=== PATIENT | female | born 1935 | race Caucasian/White ===

== ENCOUNTER 2022-02-13 18:16 | Inpatient (IN) | payer MEDICARE, SELFPAY ==
[2022-02-13] VITALS (7 sets, daily range): BP systolic 83–132; BP diastolic 57–91; PULSE 73–80; RESP 16–24; TEMP 36.2–37.2; O2SAT 90–95
--- NOTE | 2022-02-13 18:43 | CTR_ITS ---
PROCEDURE INFORMATION: Exam: CT Abdomen And Pelvis Without Contrast Exam date and time: 02/13/2022 7:59 PM Age: 86 years old Clinical indication: Abdominal pain; Prior surgery; Surgery date: 6+ months; Surgery type: Prolapse of vagina, uterus, colon, colectomy; Additional info: Abd pain TECHNIQUE: Imaging protocol: Computed tomography of the abdomen and pelvis without contrast. Sagittal and coronal reformatted images were created and reviewed. Radiation optimization: All CT scans at this facility use at least one of these dose optimization techniques: automated exposure control; mA and/or kV adjustment per patient size (includes targeted exams where dose is matched to clinical indication); or iterative reconstruction. COMPARISON: 1. CR Pelvis AP 1 or 2 views* [id number] 04/26/2016 3:[address] Abdomen/Pelvis wo I 12/26/2010 7:58 PM RADIATION DOSE METRICS: Total DLP (mGy-cm): 785.13 FINDINGS: Limitations: Evaluation of solid organs and vasculature is limited without intravenous contrast. 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 Pleural spaces: No pleural effusion. Heart: Visualized portions of the heart are mildly enlarged. Mild atherosclerotic calcification in the visualized coronary arteries. Liver: The liver is unremarkable. Gallbladder and bile ducts: The gallbladder is unremarkable. No biliary ductal dilatation. Pancreas: Mild atrophy of the pancreatic parenchyma. No pancreatic ductal dilatation. Spleen: The spleen is unremarkable. Adrenal glands: The right adrenal gland is unremarkable. Indeterminate focus in the left adrenal gland. Hounsfield units show density greater than expected for an adenoma. This measures 1.6 x 1.6 cm (series 3, image 24). Findings are stable compared with 12/26/2010. Kidneys and ureters: Simple cyst in the right kidney measuring 2.1 cm (series 3, image 32). The left kidney is unremarkable. The right and left ureters are unremarkable. Stomach and bowel: Numerous diverticula in the sigmoid colon. No evidence for diverticulitis. There is moderate wall thickening with surrounding inflammatory change of the mid transverse colon through the descending colon. No pneumatosis. No acute abnormality in the small bowel. The stomach is collapsed, which can limit evaluation. No focal abnormality in the stomach otherwise. Appendix: The appendix is visualized and is unremarkable. No findings to suggest acute appendicitis. Intraperitoneal space: No free intraperitoneal air. No ascites. No loculated fluid collections to suggest an abscess. Vasculature: Moderate atherosclerotic changes in the visualized arteries. No evidence for aortic aneurysm. Lymph nodes: No lymphadenopathy. Urinary bladder: Small cystocele at the bladder base (series 6, image 45). Reproductive: Patient has had a previous hysterectomy. The right and left ovaries are unremarkable. Bones/joints: Moderate degenerative changes at both the right and left hips. Mild degenerative changes of the right and left sacroiliac joints. Multilevel degenerative changes of varying severity in the visualized spine. Mild spinal canal stenosis at T11-12. Moderate spinal canal stenosis at L1-L2, L2-L3, L4-L5, and L5-S1. Significant spinal canal stenosis at L3-L4. Multilevel foraminal stenosis of varying severity in the visualized spine. Straightening of the lumbar spine. This may be due to positioning versus muscle spasm. Soft tissues: Ventral midline hernia over the lower abdomen containing a portion of the bladder. No evidence for strangulation (series 6, image 44). Ventral midline fat containing hernia over the lower abdomen. No evidence for strangulation (series 6, image 37). No acute abnormality in the extrathoracic soft tissues. CT/CT abdomen pelvis wo con [id number] IMPRESSION: 1. Findings consistent with moderate colitis in the mid transverse colon through the descending colon. 2. Stable indeterminate focus in the left adrenal gland. 3. Small cystocele at the bladder base. 4. Ventral midline hernia over the lower abdomen containing a portion of the bladder. No evidence for strangulation. 5. Ventral midline fat containing hernia over the lower abdomen. No evidence for strangulation. 6. Sigmoid diverticulosis. No evidence for diverticulitis. 7. Incidental/nonacute findings are listed in the report. COMMENTS: Consistent with the [place]'s Incidental Findings Committee white paper (J Am Froilan Radiol 2018): Any incidental renal lesion less than 1 cm or classified as too small to characterize, or any incidental cystic renal lesion characterized as simple-appearing, is likely benign. No follow-up imaging is recommended for these lesions per consensus recommendations based on imaging criteria.
--- NOTE | 2022-02-13 18:44 | ED_ITS ---
HPI - Abdominal Pain General: Chief Complaint: Abdominal Pain Stated Complaint: ABD PAIN Time Seen by Provider: 02/13/22 18:40 Source: patient and EMS Mode of arrival: EMS Limitations: no limitations History of Present Illness: 86-year-old female states that she started having abdominal pain this morning at 830 states that pain was in her left lower quadrant having some vomiting and diarrhea. States has had history of diverticulitis in the past and this feels similar states pain is sharp in nature rates an 8 out of 10 worse with movement improved with rest. States she had a small amount of bright red blood with her diarrhea. She denies any fevers denies any chest pain. Associated Symptoms: Reports vomiting; Denies chills, dysuria and fever(s) Review of Systems Const: Denies: fever(s), chills, body aches or change in appetite Eyes: Denies: blurry vision or eye discomfort ENMT: Denies: throat pain or dental pain Card: Denies: chest pain Resp: Denies: dyspnea GI: Reports: abdominal pain and vomiting : Denies: dysuria Musc: Denies: neck pain or back pain Skin/Breast: Denies: rash Neuro: Denies: headache(s) Psych: Denies: depression Cristofer/Lymph: Denies: easy bruising All/Imm: Denies: urticaria PFSH ED PFSH: Medical History (Updated 02/13/22 @ 18:45 by Mio Johnson MD) Diverticulitis Social History (Updated 02/13/22 @ 18:45 by Mio Johnson MD) Substance/Drug Use: never Physical Exam Const: COMMON NORMALS: no acute distress, patient oriented x3 and healthy appearing HENMT: COMMON NORMALS: normocephalic and atraumatic HEAD & SCALP: normocephalic and atraumatic Eye: COMMON NORMALS: Equal, round and reactive pupils present and EOMs intact bilaterally PUPIL: Yes Equal, round and reactive pupils present Neck/C-Spine: COMMON NORMALS: full ROM and supple Chest: COMMONS NORMALS: normal inspection of the chest and normal palpation of entire chest wall Resp: COMMON NORMALS: normal respiratory effort, No retractions, No use of accessory muscles and clear to auscultation bilaterally AUSCULTATION: clear to auscultation bilaterally Cardio: COMMON NORMALS: regular rate, regular rhythm and No murmurs present (Cardio) RATE: regular rate RHYTHM: regular rhythm GI: COMMON NORMALS: Normal to inspection, nondistended, normoactive bowel sounds present, Soft to palpation and no masses PALPATION: Yes Soft to palpation and Yes Tenderness to palpation present (GI) Details: LLQ Extremity: COMMON NORMALS: normal to inspection and full ROM Neuro: COMMON NORMALS: patient oriented x3, moves all extremities and no focal motor deficits Psych: COMMON NORMALS: mental status grossly normal, Normal thought process present and cooperative THOUGHT PROCESS: Normal thought process present Skin: COMMON NORMALS: no rashes or lesions noted and no wounds GENERAL SKIN EXAM: no rashes or lesions noted Course Vital Signs: Vital signs: Vital Signs Temperature 99.0 F 02/13/22 18:40 Pulse Rate 80 02/13/22 21:00 Respiratory Rate 22 H 02/13/22 20:19 Blood Pressure 83/71 02/13/22 21:00 Pulse Oximetry 90 02/13/22 21:00 Oxygen Delivery Me thod 02/13/22 19:42 MDM - Abdominal Pain Medical Decision Making Patient presents with abdominal pain she does have a leukocytosis as well with vomiting she does not believe she will tolerate p.o. antibiotics at home we will send off stool cultures along with C. difficile spoke to hospitalist will admit this time for IV antibiotics and pain control. Lab Data : 02/13/22 20:15 02/13/22 20:15 Labs/Radiology: Radiology Impressions Abdomen/Pelvis CT 02/13/22 18:43 IMPRESSION: 1. Findings consistent with moderate colitis in the mid transverse colon through the descending colon. 2. Stable indeterminate focus in the left adrenal gland. 3. Small cystocele at the bladder base. 4. Ventral midline hernia over the lower abdomen containing a portion of the bladder. No evidence for strangulation. 5. Ventral midline fat containing hernia over the lower abdomen. No evidence for strangulation. 6. Sigmoid diverticulosis. No evidence for diverticulitis. 7. Incidental/nonacute findings are listed in the report. COMMENTS: Consistent with the [employer] [employer]'s Incidental Findings Committee white paper (J Am Froilan Radiol 2018): Any incidental renal lesion less than 1 cm or classified as too small to characterize, or any incidental cystic renal lesion characterized as simple-appearing, is likely benign. No follow-up imaging is recommended for these lesions per consensus recommendations based on imaging criteria. Laboratory Results WBC 17.6 10^3/uL (4.0-10.0) H 02/13/22 20:15 RBC 4.56 10^6/uL (4.1-5.3) 02/13/22 20:15 Hgb 14.8 g/dL (11.5-15.3) 02/13/22 20:15 Hct 45.7 % (37.0-47.0) 02/13/22 20:15 MCV 100.2 fl (81-99) H 02/13/22 20:15 MCH 32.5 pg (28.0-34.0) 02/13/22 20:15 MCHC 32.4 g/dL (30.0-36.0) 02/13/22 20:15 RDW 13.2 % (12.1-15.1) 02/13/22 20:15 Plt Count 127 10^3/cmm (130-400) L 02/13/22 20:15 MPV 11.5 fL (7.4-10.4) H 02/13/22 20:15 Neut % (Auto) 83.8 % 02/13/22 20:15 Lymph % (Auto) 8.2 % 02/13/22 20:15 [place] % (Auto) 7.4 % 02/13/22 20:15 Eos % (Auto) 0.1 % 02/13/22 20:15 Baso % (Auto) 0.2 % 02/13/22 20:15 Neut # (Auto) 14.75 10^3/uL (1.8-7.7) H 02/13/22 20:15 Lymph # (Auto) 1.5 10^3/uL (0.8-4.8) 02/13/22 20:15 [place] # (Auto) 1.3 10^3/uL (0.2-0.9) H 02/13/22 20:15 Eos # (Auto) 0.0 10^3/uL (0.0-0.8) 02/13/22 20:15 Baso # (Auto) 0.0 10^3/uL (0.0-0.1) 02/13/22 20:15 Nucleated RBC % (auto) 0 % 02/13/22 20:15 Nucleated RBCs # 0.0 /100WBC 02/13/22 20:15 Sodium 139 mmol/L (136-145) 02/13/22 20:15 Potassium 4.1 mmol/L (3.5-5.1) 02/13/22 20:15 Chloride 105 mmol/L (98-107) 02/13/22 20:15 Carbon Dioxide 22 mmol/L (22-29) 02/13/22 20:15 Anion Gap 16.1 (5-19) 02/13/22 20:15 BUN 32 mg/dL (8-23) H 02/13/22 20:15 Creatinine 1.5 mg/dL (0.5-0.9) H 02/13/22 20:15 GFR Calculation Not Reportable 02/13/22 20:15 Glucose 120 mg/dL (65-115) H 02/13/22 20:15 Calculated Osmolality 296 mOsm/kg (285-295) H 02/13/22 20:15 Lactate 1.3 mmol/L (0.5-2.2) 02/13/22 20:15 Calcium 9.0 mg/dL (8.5-10.5) 02/13/22 20:15 Total Bilirubin 0.5 mg/dL (0.15-1.2) 02/13/22 20:15 AST 19 U/L (0-32) 02/13/22 20:15 ALT 9 U/L (0-33) 02/13/22 20:15 Alkaline Phosphatase 87 IU/L (35-105) 02/13/22 20:15 Total Protein 6.3 g/dL (6.6-8.7) L 02/13/22 20:15 Albumin 3.3 g/dL (3.5-5.2) L 02/13/22 20:15 Globulin 3.0 g/dL (1.3-4.6) 02/13/22 20:15 Lipase 14 U/L (13-60) 02/13/22 20:15 Urine Color Yellow (Yellow) 02/13/22 20:11 Urine Appearance Clear (CLEAR) 02/13/22 20:11 Urine pH 5 (5-7) 02/13/22 20:11 Ur Specific Mason 1.020 (1.005-1.030) 02/13/22 20:11 Urine Protein 1+ (Negative) H 02/13/22 20:11 Urine Glucose (UA) Norm (Normal) 02/13/22 20:11 Urine Ketones Negative (Negative) 02/13/22 20:11 Urine Blood 2+ (Negative) H 02/13/22 20:11 Urine Nitrate Negative (Negative) 02/13/22 20:11 Urine Bilirubin Neg (Negative) 02/13/22 20:11 Urine Urobilinogen Norm mg/dL (Negative) 02/13/22 20:11 Ur Leukocyte Esterase Negative (Negative) 02/13/22 20:11 Urine RBC 0-4 /hpf (0-2) H 02/13/22 20:11 Urine WBC 0-4 /hpf (0-5) H 02/13/22 20:11 Ur Squamous Epith Cells 5-10 /hpf (0-5) H 02/13/22 20:11 Amorphous Sediment Not Reportable 02/13/22 20:11 Urine Bacteria 2+ /hpf (NONE) H 02/13/22 20:11 Urine Mucus 1+ /hpf 02/13/22 20:11 Coding Level of Care Code ED 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
[2022-02-13] MEDS: morphine 4 mg/mL SDV 1 mL IVP (18:49)
[2022-02-13] MEDS: sodium chloride 0.9% 1,000 ML 999 ML IV (18:50)
[2022-02-13] MEDS: ondansetron 2 mg/ML SDV 2 mL 4 MG IVP (18:50)
[2022-02-13 20:24] LABS: Basophils % 0.2 %; Eosinophils % 0.1 %; Hematocrit 45.7 % (37.0-47.0); Hemoglobin 14.8 g/dL (11.5-15.3); Lymphocytes # 1.5 10^3/uL (0.8-4.8); Lymphocytes % 8.2 %; Mean Corpuscular HGB Conc 32.4 g/dL (30.0-36.0); Mean Corpuscular Hemoglobin 32.5 pg (28.0-34.0); Mean Corpuscular Volume 100.2 fl (81-99); Monocytes # 1.3 10^3/uL (0.2-0.9); Monocytes % 7.4 %; Neutrophils # 14.75 10^3/uL (1.8-7.7); Neutrophils % 83.8 %; Nucleated Red Blood Cells % 0 %; Platelet Count 127 10^3/cmm (130-400); Red Blood Count 4.56 10^6/uL (4.1-5.3); Red Cell Distribution Width 13.2 % (12.1-15.1); White Blood Count 17.6 10^3/uL (4.0-10.0)
[2022-02-13 20:25] LABS: Mean Platelet Volume 11.5 fL (7.4-10.4)
[2022-02-13 20:41] LABS: Lactate (Lactic Acid level) 1.3 mmol/L (0.5-2.2)
[2022-02-13 20:43] LABS: Add Urine Microscopic? YES; Bacteria Urine 2+ /hpf; Bilirubin Urine Neg (Negative); Blood Urine 2+ (Negative); Glucose Urine UA Norm (Normal); Ketones Urine Negative (Negative); Leukocyte Esterase Urine Negative (Negative); Mucus Urine 1+ /hpf; Nitrate Urine Negative (Negative); Protein Urine 1+ (Negative); RBC Urine 0-4 /hpf (0-2); Urine Appearance Clear (CLEAR); Urine Color Yellow (Yellow); Urobilinogen Urine Norm (Negative); WBC Urine 0-4 /hpf (0-5); pH Urine 5 (5-7)
[2022-02-13 20:44] LABS: Add Urine Culture? Yes
[2022-02-13 20:46] LABS: Alanine Aminotransferase 9 U/L (0-33); Albumin Level 3.3 g/dL (3.5-5.2); Alkaline Phosphatase 87 IU/L (35-105); Anion Gap 16.1 (5-19); Aspartate Amino Transferase 19 U/L (0-32); Blood Urea Nitrogen 32 mg/dL (8-23); Carbon Dioxide 22 mmol/L (22-29); Chloride 105 mmol/L (98-107); Glucose 120 mg/dL (65-115); Lipase 14 U/L (13-60); Osmolality Calculated 296 mOsm/kg (285-295); Potassium 4.1 mmol/L (3.5-5.1); Sodium 139 mmol/L (136-145); Total Bilirubin 0.5 mg/dL (0.15-1.2); Total Protein 6.3 g/dL (6.6-8.7)
--- NOTE | 2022-02-13 21:53 | PM.HP ---
Providers/Chief Complaint Chief Complaint: ABD PAIN History of Present Illness Ketty Quijano is a 86 year old female with past medical history of sciatica, hypertension, diverticulitis presented to the hospital today with complaint of nausea and vomiting and diarrhea. She states she started having abdominal pain this morning when she woke up after having her usual cup of coffee and toast in the morning. She developed pain in left lower quadrant and started to have diarrhea. She states she has gone more than 10-12 times throughout the day. She has also seen little flecks of blood but no bright red blood per rectum filling up the toilet bowl. There was no blood in the vomitus either. She says after vomiting a few times she is now having dry heaving. She complains of feeling lightheaded. Denies any chest pain or shortness of breath at this time. Abdomen described as very sore to palpation. Denies any recent antibiotic use. Denies ill contacts. Denies eating out at a restaurant recently. Does drink well water on a regular basis without voiding at. Denies any tick bites, fresh water stream drinking or exposure. She says she has had diverticulitis flares at times in the past and also had a colonoscopy few years ago by Dr. Tovar. Denies fever, chills, dysuria. Otherwise denotes herself as very healthy. Denies drinking alcohol, smoking, or marijuana use. ER course: BP 83/71, respiratory 22, pulse 80, temperature 99, saturating 90% on room air on arrival. Patient has not had a bowel movement since ER visit. Abdomen/Pelvis CT? 02/13/22 18:43 IMPRESSION: 1. Findings consistent with moderate colitis in the mid transverse colon through the descending colon. 2. Stable indeterminate focus in the left adrenal gland. 3. Small cystocele at the bladder base. 4. Ventral midline hernia over the lower abdomen containing a portion of the bladder. No evidence for strangulation. 5. Ventral midline fat containing hernia over the lower abdomen. No evidence for strangulation. 6. Sigmoid diverticulosis. No evidence for diverticulitis. 7. Incidental/nonacute findings are listed in the report. Labs remarkable for WBC 17.6, platelets 127, creatinine 1.5, lactic acid 1.3, urinalysis blood 2+, RBC positive. Home medications?verified by me ? Lisinopril hydrochlorothiazide 20?25, 1 tablet daily ? Lovastatin 20 mg daily - Metoprolol heart rate 100 mg twice daily Medications/Allergies Home Medications Medication Instructions Recorded Confirmed Last Taken Type hydrocodone 10 mg-acetaminophen tab 02/13/22 Unknown History 325 mg tablet lisinopril 20 1 tab PO DAILY 02/13/22 02/13/22 Unknown History mg-hydrochlorothiazide 25 mg tablet lovastatin 20 mg tablet 20 mg PO DAILY 02/13/22 02/13/22 Unknown History metoprolol tartrate 100 mg tablet 100 mg PO BID 02/13/22 02/13/22 Unknown History Allergies Allergy/AdvReac Type Severity Reaction Status Date / Time milk Allergy Unknown Verified 02/14/22 00:29 PFSH Acute PFSH: Medical History (Updated 02/14/22 @ 01:32 by Albina Landa MD) Diverticulitis Social History (Updated 02/13/22 @ 18:45 by Mio Johnson MD) Substance/Drug Use: never Vitals/I&O/Wt Last Vital Signs Temp 99.0 F 02/13/22 18:40 Pulse 80 02/13/22 21:00 Resp 22 H 02/13/22 20:19 BP 83/71 02/13/22 21:00 Pulse Ox 90 02/13/22 21:00 O2 Del Method 02/13/22 19:42 Physical Exam Narrative: General: Alert oriented x3, patient seen laying in bed with son at bedside. Patient appears very comfortable at this time breathing room air saturating 95%. Not tachycardic, regular rate rhythm, blood pressure 100/70. HEENT: Normocephalic, atraumatic, EOMI, breathing normally on room air without acute distress._ Cardio: Regular rate rhythm, normal S1-S2, Respiratory: Clear to auscultation bilaterally with no wheezes and rhonchi GI: Abdomen soft, tender to palpation left lower quadrant area, not distended, bowel sounds slightly hyperactive, no guarding or rigidity Extremities: No lower extremity edema bilaterally, no cyanosis Data : 02/13/22 20:15 02/13/22 20:15 A&P Assessment and plan (1) Colitis: Status: Acute (2) Sepsis: Status: Acute (3) Sepsis associated hypotension: Status: Acute (4) REAGAN (acute kidney injury): Status: Acute (5) Nausea & vomiting: Status: Acute (6) Gastroenteritis: Status: Acute (7) Thrombocytopenia: Status: Acute (8) Hypertension: Status: Acute (9) History of sciatica: Status: Acute Plan #Sepsis secondary to large colon Moderate colitis #Diarrhea with flecks of blood, no gross bright red blood per rectum #Nausea, vomiting #Gastroenteritis #Hypertension #History of diverticulitis?no evidence of acute diverticulitis on CT today. #History of sciatica #REAGAN, creatinine 1.5, baseline unknown #Thrombocytopenia possibly secondary to infection, HUS not ruled out #Transient hypotension on arrival 80/70.?Responsive to fluids #Indeterminate focus in left adrenal gland?stable from prior CT 2010, outpatient follow-up ? Patient already received 1 dose of ciprofloxacin and Flagyl in ER ? Rule out HUS. Check LDH, peripheral smear, Wang test, check CRP ? Continue normal saline 100 cc/h. Patient did get 1 L bolus in ER normal saline ? Continue to monitor hemoglobin. Currently 14.1. ? Check stool culture, bacterial, ova, parasite, C. difficile ? I will hold off on continuing antibiotics due to presence of blood in stool as per patient. Day team to reevaluate and order antibiotics. ? Consider general surgery consult if patient worsens Full code DVT prophylaxis: SCDs Kyle Quijano [phone], son would like to be updated with any changes in management. Attestations Medical Necessity Statement*: Patient will cross greater than 2 midnights for management of sepsis secondary to colitis, REAGAN, gastroenteritis. Coding Level of Care Code Acute Timekeeper Supervisor for [facility] Diagnoses Colitis K52.9 Sepsis A41.9 Sepsis associated hypotension A41.9; I95.9 REAGAN (acute kidney injury) N17.9 Nausea & vomiting R11.2 Gastroenteritis K52.9 Thrombocytopenia D69.6 Hypertension I10 History of sciatica Z86.69
[2022-02-13] MEDS: metroNIDAZOLE IV 500 MG/100 ML PREMIX 100 MG IV (22:25)
[2022-02-13] MEDS: ciprofloxacin 400 MG/200 ML PREMIX 200 MG IV (23:19)
[2022-02-14 00:14] LABS: LAB Peripheral Smear Sent for Review
[2022-02-14 00:21] LABS: Procalcitonin 0.15 ng/mL (0-0.5); Thyroid Stimulating Hormone 1.85 uIU/mL (0.27-4.20)
[2022-02-14] MEDS: famotidine 20 mg/2 mL INJ IVP ×2 (00:28→11:18)
[2022-02-14] MEDS: sodium chlor 0.9% + KCl 20 mEq 20 MEQ/1,000 ML BAG 100 MEQ IV (00:28)
[2022-02-14 00:31] LABS: C Reactive Protein 10.1 mg/L (0.0-4.9); Lactate Dehydrogenase 248 U/L (135-214)
[2022-02-14 06:28] LABS: Basophils % 0.3 %; Eosinophils % 0.1 %; Hematocrit 43.2 % (37.0-47.0); Hemoglobin 13.8 g/dL (11.5-15.3); Lymphocytes # 2.1 10^3/uL (0.8-4.8); Lymphocytes % 13.2 %; Mean Corpuscular HGB Conc 31.9 g/dL (30.0-36.0); Mean Corpuscular Hemoglobin 32.3 pg (28.0-34.0); Mean Corpuscular Volume 101.2 fl (81-99); Mean Platelet Volume 11.9 fL (7.4-10.4); Monocytes # 1.4 10^3/uL (0.2-0.9); Monocytes % 8.7 %; Neutrophils # 12.06 10^3/uL (1.8-7.7); Neutrophils % 77.4 %; Nucleated Red Blood Cells % 0 %; Platelet Count 127 10^3/cmm (130-400); Red Blood Count 4.27 10^6/uL (4.1-5.3); Red Cell Distribution Width 13.3 % (12.1-15.1); White Blood Count 15.6 10^3/uL (4.0-10.0)
[2022-02-14 06:50] LABS: Lactic Sepsis W/Reflex 1.3 mmol/L (0.5-2.2)
[2022-02-14 07:09] LABS: Alanine Aminotransferase 8 U/L (0-33); Albumin Level 2.8 g/dL (3.5-5.2); Alkaline Phosphatase 72 IU/L (35-105); Anion Gap 15.1 (5-19); Aspartate Amino Transferase 15 U/L (0-32); Blood Urea Nitrogen 28 mg/dL (8-23); Calcium 8.6 mg/dL (8.5-10.5); Carbon Dioxide 23 mmol/L (22-29); Chloride 105 mmol/L (98-107); Globulin 2.9 g/dL (1.3-4.6); Glucose 116 mg/dL (65-115); Magnesium 1.4 mg/dL (1.7-2.3); Osmolality Calculated 294 mOsm/kg (285-295); Phosphorus 1.7 mg/dL (2.5-4.5); Potassium 4.1 mmol/L (3.5-5.1); Sodium 139 mmol/L (136-145); Total Bilirubin 0.6 mg/dL (0.15-1.2); Total Protein 5.7 g/dL (6.6-8.7)
[2022-02-14] MEDS: sodium chloride 0.9% 1,000 ML 999 ML IV (09:06)
[2022-02-14] MEDS: piperacillin-tazobactam 3.375 GM in sodium chloride 0.9% (plus) 50 ML IV ×2 (10:17→16:46)
[2022-02-14] MEDS: acetaminophen 325 mg Tablet 650 MG PO (10:17)
[2022-02-14 10:21] VITALS: BMI 39.6
--- NOTE | 2022-02-14 10:22 | PC.CHAP ---
Pastoral Care Encounter/Spiritual Assessment Type of Contact [] Declined physician non invasive cardiologist visit [] Patient/Family/Request visit [] Outpatient visit [] Follow-up visit [] Physician referral [] Code/Alert [x] Routine visit [] Staff referral [] Actively dying [] Patient sleeping [] Family support [] [x] Out of room [] Palliative care [] [] Receiving care in room [] Pre-surgical visit [] Trauma [] Long length of stay [] ICU visit [] Other: Relational/Emotional Strength [] Patient feels connected with others/family/visitors/staff [] Distress [] Loneliness/isolation [] Abandonment Spirituality of Patient [] Person of Gin [] Attends Zoroastrianism of their Gin [] Believes in Prayer [] Reads Bible or Temple materials [] There are Spiritual issues to be addressed Patient Registration Specialist Interventions [] Prayer [] Active listening [] Non-anxious presence [] Spiritual/emotional support [] Crisis/trauma care [] Spiritual counseling [] Bereavement support [] Provided bereavement packet [] Provided Bible/devotional materials [] Provided toy/stuffed animal, coloring book to patient or family member [] Provided Communion [] Anointing/[place] [] Salvation [] Completed spiritual assessment [] Other: Impact on Illness or Injury [] Angry [] Fearful [] Anxious [] Often cries [] Exhaustion [] Unable to work [] Unable to attend gnosticism [] Unable to walk/stand [] Unable to read [] Unable to drive [] Unable to eat/drink [] Unable to sleep [] Unable to be with family [] Patient intubated [] Other: Summary Time spent with patient
[2022-02-14 10:23] VITALS: BP 92/58; PULSE 76; RESP 15; O2SAT 97
--- NOTE | 2022-02-14 10:56 | PM.PN ---
Subjective Subjective: This morning patient is stating that her cramps are better, I will let her have clear liquid diet She most likely has diverticular bleed Start antibiotics I will give her another bolus Patient stating that she is active for age, [place] Vitals/I&O/Wt Last Vital Signs Temp 97.2 F L 02/13/22 22:00 Pulse 76 02/14/22 10:23 Resp 15 02/14/22 10:23 BP 92/58 02/14/22 10:23 Pulse Ox 97 02/14/22 10:23 O2 Del Method 02/14/22 10:23 02/13/22 02/14/22 02/14/22 22:59 06:59 14:59 Intake Total 1000 / 1000 300 / 1300 880 / 880 Balance 1000 / 1000 300 / 1300 880 / 880 Weight last 48 hrs Weight 95.164 kg Physical Exam Narrative: Patient is awake and alert Looks euvolemic Abdomen tender to palpate left lower quadrant otherwise soft, no signs of rigidity guarding, Awake and alert Nonfocal neuro exam Saturating well Bowel sound present Very pleasant cooperative Data : 02/14/22 06:21 02/14/22 06:21 Micro: Microbiology 02/13/22 22:02 Blood Culture - Preliminary Blood SPECIMEN COLLECTED 02/13/22 22:12 Blood Culture - Preliminary Blood SPECIMEN COLLECTED A&P Assessment and plan (1) Thrombocytopenia: Status: Acute (2) Gastroenteritis: Status: Acute (3) Nausea & vomiting: Status: Acute (4) Acute kidney injury superimposed on chronic kidney disease: Status: Acute (5) Sepsis: Status: Acute (6) Sepsis associated hypotension: Status: Acute (7) Colitis: Status: Acute (8) Diverticulitis: Status: Acute (9) Diverticular hemorrhage: Status: Acute Plan Sepsis related to diverticulitis/colitis No significant drop in hemoglobin my suspicion for HUS, TTP is low I will go ahead and keep her on Zosyn We will start her on clear liquid diet Most likely she has diverticular bleed that is causing hematochezia Lactic acid is normal, leukocytosis trending down my suspicion for ischemic colitis at this point is low She has localized tenderness in the left lower quadrant No signs of autoimmune hemolytic anemia or thrombocytopenia platelets are stable Secondary to abnormal creatinine at [address] abdomen pelvis to rule out ischemic colitis at this point however she does have involvement of watershed area EKG showing sinus arrhythmia Hematochezia: Hemoglobin stable, blood pressure is soft related to dehydration and sepsis Acute on chronic kidney disease Baseline creatinine seems to between 1.3-1.5 Currently creatinine at 1.5 Anticipate improvement with IV fluid hydration She was also taking lisinopril hydrochlorothiazide at home Hypotension related to sepsis and dehydration We will give her another bolus of fluids Follow-up with stool studies Serial abdominal exam, if she stays stable I might be able to discharge her in next 48 hours, she will need outpatient colonoscopy Start her on clear liquid diet DVT prophylaxis on hold secondary to thrombocytopenia and hematochezia Patient is full code Kyle Quijano [phone] and son would like to be updated with any management change Attestations Medical Necessity Statement*: Continue medical management Time Spent in Patient Care: 40 Coding Level of Care Code Acute Appetizer Packer for [facility] Fwd Diagnoses Thrombocytopenia D69.6 Gastroenteritis K52.9 Nausea & vomiting R11.2 Acute kidney injury superimposed on chronic kidney disease N17.9; N18.9 Sepsis A41.9 Sepsis associated hypotension A41.9; I95.9 Colitis K52.9 Diverticulitis K57.92 Diverticular hemorrhage K57.31
[2022-02-14] MEDS: lactated ringers 1,000 ML 999 ML IV (11:19)
[2022-02-14 12:00] VITALS: BP 82/51; PULSE 63; RESP 18; TEMP 36.9; O2SAT 93
[2022-02-14] MEDS: sodium chloride 0.9% 1,000 ML 75 ML IV (12:33)
--- NOTE | 2022-02-14 13:41 | PC.NURSE ---
iv came out of patient's arm
[2022-02-14 14:25] VITALS: BP 102/70; PULSE 69; RESP 12; TEMP 36.4; O2SAT 92
[2022-02-14 15:39] VITALS: BP 91/54; PULSE 72; RESP 16; TEMP 36.8; O2SAT 90
[2022-02-14 20:00] VITALS: BP 118/48; PULSE 79; RESP 14; TEMP 36.8; O2SAT 95
[2022-02-15] VITALS: BP 101/67; PULSE 75; RESP 16; TEMP 36.7; O2SAT 96
[2022-02-15] MEDS: piperacillin-tazobactam 3.375 GM in sodium chloride 0.9% (plus) 50 ML IV ×2 (00:34→08:20)
[2022-02-15] MEDS: famotidine 20 mg/2 mL INJ IVP (00:35)
[2022-02-15] MEDS: sodium chloride 0.9% 1,000 ML 75 ML IV (00:35)
[2022-02-15 02:51] LABS: Basophils # 0.1 10^3/uL (0.0-0.1); Basophils % 0.4 %; Eosinophils # 0.3 10^3/uL (0.0-0.8); Eosinophils % 2.8 %; Hematocrit 40.2 % (37.0-47.0); Hemoglobin 12.7 g/dL (11.5-15.3); Lymphocytes # 1.6 10^3/uL (0.8-4.8); Mean Corpuscular HGB Conc 31.6 g/dL (30.0-36.0); Mean Corpuscular Hemoglobin 32.1 pg (28.0-34.0); Mean Corpuscular Volume 101.5 fl (81-99); Mean Platelet Volume 12.3 fL (7.4-10.4); Monocytes # 0.8 10^3/uL (0.2-0.9); Neutrophils # 8.57 10^3/uL (1.8-7.7); Neutrophils % 75.5 %; Nucleated Red Blood Cells % 0 %; Platelet Count 118 10^3/cmm (130-400); Red Blood Count 3.96 10^6/uL (4.1-5.3); Red Cell Distribution Width 13.6 % (12.1-15.1); White Blood Count 11.4 10^3/uL (4.0-10.0)
[2022-02-15 03:17] LABS: Blood Urea Nitrogen 22 mg/dL (8-23); Calcium 8.4 mg/dL (8.5-10.5); Carbon Dioxide 22 mmol/L (22-29); Chloride 111 mmol/L (98-107); Glucose 93 mg/dL (65-115); Osmolality Calculated 297 mOsm/kg (285-295); Sodium 142 mmol/L (136-145)
[2022-02-15 04:00] VITALS: BP 87/55; PULSE 78; RESP 13; TEMP 36.6; O2SAT 96
[2022-02-15 06:25] VITALS: BP 133/61
[2022-02-15 08:00] VITALS: BP 103/71; PULSE 66; RESP 16; TEMP 36.5; O2SAT 95
--- NOTE | 2022-02-15 09:23 | PC.NURSE ---
Bedside report received from CATHERINE Zeng.
[2022-02-15 12:00] VITALS: BP 108/72; PULSE 87; RESP 18; TEMP 36.6; O2SAT 96
--- NOTE | 2022-02-15 12:54 | P.DS_ITS ---
Discharge Providers Date of Admission: 02/13/22 21:52 Date of Discharge: February 15, 2022 Attending Provider at Admission: Albina Landa MD Attending Provider at Discharge: Avani Tabor MD Diagnoses at Discharge Discharge Diagnosis (1) Thrombocytopenia: Status: Acute (2) Gastroenteritis: Status: Acute (3) Nausea & vomiting: Status: Acute (4) Acute kidney injury superimposed on chronic kidney disease: Status: Acute (5) Sepsis: Status: Acute (6) Sepsis associated hypotension: Status: Acute (7) Colitis: Status: Acute (8) Diverticulitis: Status: Acute (9) Diverticular hemorrhage: Status: Acute Reason for Visit Reason for Visit: ABD PAIN Hospital Course Hospital Course 86-year-old female who presented to the hospital with chief complaint of bright blood per rectum with diarrhea. Patient has history of diverticulosis. She is endorsing constipation. Initially there was concern for ischemic colitis and possible autoimmune hemolysis. Work-up was unremarkable. Platelets remained stable. Hemoglobin stable as well. Diverticular bleed improved. Her colitis was treated with IV antibiotics. Her leukocytosis was improving, she remained afebrile. She tolerated her GI soft diet on 02/15. Patient is wanting to go home. Cultures remain negative, C. difficile ruled out. I will give her 10 days of Augmentin. Have discontinued her lisinopril hydrochlorothiazide c ombination because of chronic kidney disease. Her blood pressure has remained stable, she can continue metoprolol. Platelet count at the time of discharge 118,000, hemoglobin 12.7, white count 11.4, afebrile cultures negative to date She will need a colonoscopy down the road once inflammation subsides. I will have her follow-up with her PCP to decide about her colonoscopy timing Physical Exam Narrative: Hemodynamically stable Elderly female Tolerated her diet Abdomen is distillation operator to touch in left lower quadrant on deep palpation Euvolemic Awake and alert Pleasant cooperative Saturating well on room air Discharge Data Studies Completed and Pending Completed Studies During Hospitalization Category Date Time Status CT abdomen pelvis wo con [id number] Urgent Cat Scan 02/13/22 18:43 Completed Pending at discharge Category Date Time Status Blood Culture Stat Lab 02/13/22 22:02 Results Clostridioides Difficile PCR Routine Lab 02/13/22 21:27 Uncollected Occult Blood Stool [Immunochemical Fecal OCB] Routine Lab 02/14/22 01:22 Uncollected Stool Culture, Bacterial [Enteric Bacterial Panel by Lab 02/13/22 21:27 Uncollected PCR] Routine stool Ova and Parasite [Enteric Parasite Panel by PCR] Lab 02/13/22 23:43 Uncollected Routine Radiology Impressions Abdomen/Pelvis CT 02/13/22 18:43 IMPRESSION: 1. Findings consistent with moderate colitis in the mid transverse colon through the descending colon. 2. Stable indeterminate focus in the left adrenal gland. 3. Small cystocele at the bladder base. 4. Ventral midline hernia over the lower abdomen containing a portion of the bladder. No evidence for strangulation. 5. Ventral midline fat containing hernia over the lower abdomen. No evidence for strangulation. 6. Sigmoid diverticulosis. No evidence for diverticulitis. 7. Incidental/nonacute findings are listed in the report. COMMENTS: Consistent with the [employer]'s Incidental Findings Committee white paper (J Am Froilan Radiol 2018): Any incidental renal lesion less than 1 cm or classified as too small to characterize, or any incidental cystic renal lesion characterized as simple-appearing, is likely benign. No follow-up imaging is recommended for these lesions per consensus recommendations based on imaging criteria. Laboratory Results WBC 11.4 10^3/uL (4.0-10.0) H 02/15/22 02:22 RBC 3.96 10^6/uL (4.1-5.3) L 02/15/22 02:22 Hgb 12.7 g/dL (11.5-15.3) 02/15/22 02:22 Hct 40.2 % (37.0-47.0) 02/15/22 02:22 MCV 101.5 fl (81-99) H 02/15/22 02:22 MCH 32.1 pg (28.0-34.0) 02/15/22 02:22 MCHC 31.6 g/dL (30.0-36.0) 02/15/22 02:22 RDW 13.6 % (12.1-15.1) 02/15/22 02:22 Plt Count 118 10^3/cmm (130-400) L 02/15/22 02:22 MPV 12.3 fL (7.4-10.4) H 02/15/22 02:22 Neut % (Auto) 75.5 % 02/15/22 02:22 Lymph % (Auto) 14.0 % 02/15/22 02:22 [place] % (Auto) 7.0 % 02/15/22 02:22 Eos % (Auto) 2.8 % 02/15/22 02:22 Baso % (Auto) 0.4 % 02/15/22 02:22 Neut # (Auto) 8.57 10^3/uL (1.8-7.7) H 02/15/22 02:22 Lymph # (Auto) 1.6 10^3/uL (0.8-4.8) 02/15/22 02:22 [place] # (Auto) 0.8 10^3/uL (0.2-0.9) 02/15/22 02:22 Eos # (Auto) 0.3 10^3/uL (0.0-0.8) 02/15/22 02:22 Baso # (Auto) 0.1 10^3/uL (0.0-0.1) 02/15/22 02:22 Nucleated RBC % (auto) 0 % 02/15/22 02:22 Nucleated RBCs # 0.0 /100WBC 02/15/22 02:22 Haptoglobin 134.0 mg/L (30-200) 02/13/22 20:15 Sodium 142 mmol/L (136-145) 02/15/22 02:22 Potassium 4.0 mmol/L (3.5-5.1) 02/15/22 02:22 Chloride 111 mmol/L (98-107) H 02/15/22 02:22 Carbon Dioxide 22 mmol/L (22-29) 02/15/22 02:22 Anion Gap 13.0 (5-19) 02/15/22 02:22 BUN 22 mg/dL (8-23) 02/15/22 02:22 Creatinine 1.4 mg/dL (0.5-0.9) H 02/15/22 02:22 GFR Calculation Not Reportable 02/15/22 02:22 Glucose 93 mg/dL (65-115) 02/15/22 02:22 Calculated Osmolality 297 mOsm/kg (285-295) H 02/15/22 02:22 Lactic Acid 1.3 mmol/L (0.5-2.2) 02/14/22 06:21 Lactate 1.3 mmol/L (0.5-2.2) 02/13/22 20:15 Calcium 8.4 mg/dL (8.5-10.5) L 02/15/22 02:22 Phosphorus 1.7 mg/dL (2.5-4.5) L 02/14/22 06:21 Magnesium 1.4 mg/dL (1.7-2.3) L 02/14/22 06:21 Total Bilirubin 0.6 mg/dL (0.15-1.2) 02/14/22 06:21 AST 15 U/L (0-32) 02/14/22 06:21 ALT 8 U/L (0-33) 02/14/22 06:21 Alkaline Phosphatase 72 IU/L (35-105) 02/14/22 06:21 Lactate Dehydrogenase 248 U/L (135-214) H 02/13/22 20:15 C-Reactive Protein 10.1 mg/L (0.0-4.9) H 02/13/22 20:15 Total Protein 5.7 g/dL (6.6-8.7) L 02/14/22 06:21 Albumin 2.8 g/dL (3.5-5.2) L 02/14/22 06:21 Globulin 2.9 g/dL (1.3-4.6) 02/14/22 06:21 Lipase 14 U/L (13-60) 02/13/22 20:15 Procalcitonin 0.15 ng/mL (0-0.5) 02/13/22 20:15 TSH 1.85 uIU/mL (0.27-4.20) 02/13/22 20:15 TSH Cancelled 02/13/22 20:15 Urine Color Yellow (Yellow) 02/13/22 20:11 Urine Appearance Clear (CLEAR) 02/13/22 20:11 Urine pH 5 (5-7) 02/13/22 20:11 Ur Specific [place] 1.020 (1.005-1.030) 02/13/22 20:11 Urine Protein 1+ (Negative) H 02/13/22 20:11 Urine Glucose (UA) Norm (Normal) 02/13/22 20:11 Urine Ketones Negative (Negative) 02/13/22 20:11 Urine Blood 2+ (Negative) H 02/13/22 20:11 Urine Nitrate Negative (Negative) 02/13/22 20:11 Urine Bilirubin Neg (Negative) 02/13/22 20:11 Urine Urobilinogen Norm mg/dL (Negative) 02/13/22 20:11 Ur Leukocyte Esterase Negative (Negative) 02/13/22 20:11 Urine RBC 0-4 /hpf (0-2) H 02/13/22 20:11 Urine WBC 0-4 /hpf (0-5) H 02/13/22 20:11 Ur Squamous Epith Cells 5-10 /hpf (0-5) H 02/13/22 20:11 Amorphous Sediment Not Reportable 02/13/22 20:11 Urine Bacteria 2+ /hpf (NONE) H 02/13/22 20:11 Urine Mucus 1+ /hpf 02/13/22 20:11 [place], Poly Interpret Negative 02/13/22 20:15 Vitals Last Vital Signs Temp 97.8 F 02/15/22 12:00 Pulse 87 02/15/22 12:00 Resp 18 02/15/22 12:00 BP 108/72 02/15/22 12:00 Pulse Ox 96 02/15/22 12:00 O2 Del Method 02/15/22 12:00 Discharge Plan Discharge Patient Disposition: Home Condition: Stable Prescriptions: New amoxicillin-pot clavulanate [Augmentin] 500-125 mg tablet 1 tab PO BID 10 Days Qty: 20 0RF sennosides-docusate sodium [Senna-S] 8.6-50 mg tablet 1 tab-cap PO DAILY Qty: 30 0RF Continued hydrocodone-acetaminophen 10-325 mg tablet 1 tab PO Q6H PRN (Reason: Pain) metoprolol tartrate 100 mg tablet 100 mg PO BID lovastatin 20 mg tablet 20 mg PO BEDTIME Discontinued lisinopril-hydrochlorothiazide 20-25 mg tablet 1 tab PO QA Discharge Orders: Discharge Order (Routine); Ordered 02/15/22 Ordered By: Avani Tabor Discharge Diet: GI Soft Discharge Activity: Increase activity as tolerated Patient Instructions: Opioid Safety Activity Restrictions/Additional Instructions: Please do not take lisinopril and hydrochlorothiazide because your blood pressure has remained stable and you have chronic kidney disease creatinine is around 1.4 You can keep taking your metoprolol for blood pressure. Please take Augmentin for 10 days. You likely suffered from diverticular bleed and you might notice on and off bright bleed per rectum. Please take stool softeners to avoid constipation Discharge Attestations Time Spent in Discharge Care*: less than 30 min Quality Metrics Clinical Quality Measures [ No reported AMI, CVA or VTE this stay] Coding Level of Care Code Acute Chg FW DC note Diagnoses Thrombocytopenia D69.6 Gastroenteritis K52.9 Nausea & vomiting R11.2 Acute kidney injury superimposed on chronic kidney disease N17.9; N18.9 Sepsis A41.9 Sepsis associated hypotension A41.9; I95.9 Colitis K52.9 Diverticulitis K57.92 Diverticular hemorrhage K57.31
== END 2022-02-15 15:28 | disposition home or self-care (01) | DRG 871 ==
LOC: ER 20:46 → ER IP 23:42 → MEDSURG 02-14 09:02
PROVIDERS: Admitting Provider Internal Medicine; Emergency Provider Emergency Medicine; Visit Provider Internal Medicine
DX: A41.9 Sepsis, unspecified organism (principal); K57.33 Diverticulitis of large intestine without perforation or abscess with bleeding; N17.9 Acute kidney failure, unspecified; K52.9 Noninfective gastroenteritis and colitis, unspecified; M54.30 Sciatica, unspecified side; I12.9 Hypertensive chronic kidney disease with stage 1 through stage 4 chronic kidney disease, or unspecified chronic kidney disease; N18.9 Chronic kidney disease, unspecified; I95.9 Hypotension, unspecified; D69.6 Thrombocytopenia, unspecified; Z79.891 Long term (current) use of opiate analgesic
CPT/HCPCS: 36415; 74176; 80048; 80053; 80503; 81001; 83010; 83605; 83615; 83690; 83735; 84100; 84145; 84443; 85025; 86140; 86880; 87040; 87086; 96365; 96366; 96367; 96375; 99285; J0744; J2270; J2405; J2543; J3490; J7030; S0030

== ENCOUNTER 2022-03-08 16:41 | Inpatient (IN) | payer MEDICARE, SELFPAY ==
[2022-03-08 16:50] VITALS: BP 145/66; PULSE 72; RESP 16; TEMP 36.4; O2SAT 94; BMI 31.1
--- NOTE | 2022-03-08 18:49 | CTR_ITS ---
PROCEDURE INFORMATION: Exam: CT Abdomen And Pelvis Without Contrast Exam date and time: 03/08/2022 7:10 PM Age: 86 years old Clinical indication: Pain and condition or disease; Intestinal condition; Diverticulitis; Abdominal pain; Additional info: Abd pain TECHNIQUE: Imaging protocol: Computed tomography of the abdomen and pelvis without contrast. Radiation optimization: All CT scans at this facility use at least one of these dose optimization techniques: automated exposure control; mA and/or kV adjustment per patient size (includes targeted exams where dose is matched to clinical indication); or iterative reconstruction. COMPARISON: CT abdomen pelvis wo con [id number] 02/13/2022 7:59 PM RADIATION DOSE METRICS: Total DLP (mGy-cm): 765.67 FINDINGS: Lungs: The visualized lung m[place] show mild bibasilar atelectasis. Liver: Normal size and homogeneous density. No liver mass is seen. Gallbladder and bile ducts: No calcified gallstones. No ductal dilation. Pancreas: Normal size and homogeneous density. No ductal dilation. Spleen: Normal. No splenomegaly. Adrenal glands: Normal. No mass. Kidneys and ureters: No evidence of hydronephrosis. No renal or ureteral calculi. Stomach and bowel: There are no abnormally dilated loops of small bowel. There has been near complete resolution of the transverse and descending colitis with some mild pericolonic stranding remaining in the proximal descending colon. However, has been interim development of thickening of the wall of the sigmoid that contains diverticula and pericolonic inflammatory stranding consistent with diverticulitis. There is no evidence of perforation. There is a soft tissue density extending 4.9 x 0.8 cm along the lateral aspect of the proximal sigmoid with heterogeneous density that may represent a phlegmon or developing abscess (series 4, image 61). Appendix: No evidence of appendicitis. Intraperitoneal space: There is no free air in the peritoneal cavity. Vasculature: There is extensive atherosclerotic calcification and tortuosity of the abdominal aorta and its branches. No abdominal aortic aneurysm is identified. Lymph nodes: No enlarged retroperitoneal or mesenteric lymph nodes. Urinary bladder: There is redemonstration of a small cystocele (series 4, images 68-73). Reproductive: There has been prior hysterectomy. Bones/joints: There is no acute fracture. There is mild levoconvex rotoscoliosis of the lumbar spine. Multilevel degenerative disc disease and vacuum disc associated with prominent anterior, lateral and posterior osteophytes. Soft tissues: In the mid lower abdomen, there is diastasis recti containing adipose tissue. There is a small fat-containing umbilical hernia. CT/CT abdomen pelvis wo con [id number] IMPRESSION: 1. Significant improvement in the previously described colitis without complete resolution. 2. Interim development of sigmoid diverticulitis with a small phlegmon/developing abscess along the lateral aspect of the proximal sigmoid colon. No free air to suggest perforation. 3. Redemonstration of diastasis recti and a small umbilical hernia. 4. A small cystocele. 5. Additional non emergent findings as described above.
--- NOTE | 2022-03-08 18:55 | W.ED.ABDPA2 ---
HPI - Abdominal Pain General: Chief Complaint: Abdominal Pain Stated Complaint: pain in the stomach really bad Time Seen by Provider: 03/08/22 18:43 Source: patient Mode of arrival: ambulatory Limitations: no limitations History of Present Illness: 86-year-old female who was admitted earlier this month for colitis states she finished her antibiotics roughly 10 days ago states that over the last day she been having increasing left lower quadrant pain that sharp in nature rates her pain 8 out of 10 has had some vomiting as well low-grade fevers afebrile here she denies any worsening proving factors. Associated Symptoms: Denies chills, dysuria and fever(s) Review of Systems Const: Denies: fever(s), chills, body aches or change in appetite Eyes: Denies: blurry vision or eye discomfort ENMT: Denies: throat pain or dental pain Card: Denies: chest pain Resp: Denies: dyspnea GI: Reports: abdominal pain : Denies: dysuria Musc: Denies: neck pain or back pain Skin/Breast: Denies: rash Neuro: Denies: headache(s) Psych: Denies: depression [place]/Lymph: Denies: easy bruising All/Imm: Denies: urticaria PFSH ED PFSH: Medical History Acute kidney injury superimposed on chronic kidney disease REAGAN (acute kidney injury) Colitis Diverticular hemorrhage Diverticulitis Gastroenteritis History of sciatica Hypertension Nausea & vomiting Sepsis Sepsis associated hypotension Thrombocytopenia Social History (Updated 03/08/22 @ 21:01 by Mio Johnson MD) Substance/Drug Use: never Physical Exam Const: COMMON NORMALS: no acute distress, patient oriented x3 and healthy appearing HENMT: COMMON NORMALS: normocephalic and atraumatic HEAD & SCALP: normocephalic and atraumatic Eye: COMMON NORMALS: Equal, round and reactive pupils present and EOMs intact bilaterally PUPIL: Yes Equal, round and reactive pupils present Neck/C-Spine: COMMON NORMALS: full ROM and supple Chest: COMMONS NORMALS: normal inspection of the chest and normal palpation of entire chest wall Resp: COMMON NORMALS: normal respiratory effort, No retractions, No use of accessory muscles and clear to auscultation bilaterally AUSCULTATION: clear to auscultation bilaterally Cardio: COMMON NORMALS: regular rate, regular rhythm and No murmurs present (Cardio) RATE: regular rate RHYTHM: regular rhythm GI: COMMON NORMALS: Normal to inspection, nondistended, normoactive bowel sounds present, Soft to palpation and no masses PALPATION: Yes Soft to palpation and Yes Tenderness to palpation present (GI) Details: LLQ Extremity: COMMON NORMALS: normal to inspection and full ROM Neuro: COMMON NORMALS: patient oriented x3, moves all extremities and no focal motor deficits Psych: COMMON NORMALS: mental status grossly normal, Normal thought process present and cooperative THOUGHT PROCESS: Normal thought process present Skin: COMMON NORMALS: no rashes or lesions noted and no wounds GENERAL SKIN EXAM: no rashes or lesions noted Course Vital Signs: Vital signs: Vital Signs Temperature 97.6 F 03/08/22 16:50 Pulse Rate 77 03/08/22 19:24 Respiratory Rate 18 03/08/22 19:44 Blood Pressure 108/89 03/08/22 19:24 Pulse Oximetry 96 03/08/22 19:24 Oxygen Delivery Me thod 03/08/22 19:24 MDM - Abdominal Pain Medical Decision Making Patient presents with abdominal pain CT does show diverticulitis spoke to hospitalist will admit at this time for IV to biotics she does have a leukocytosis likely from her diverticulitis. Lab Data : 03/08/22 19:40 03/08/22 19:40 Labs/Radiology: Radiology Impressions Abdomen/Pelvis CT 03/08/22 18:49 IMPRESSION: 1. Significant improvement in the previously described colitis without complete resolution. 2. Interim development of sigmoid diverticulitis with a small phlegmon/developing abscess along the lateral aspect of the proximal sigmoid colon. No free air to suggest perforation. 3. Redemonstration of diastasis recti and a small umbilical hernia. 4. A small cystocele. 5. Additional non emergent findings as described above. Laboratory Results WBC 16.1 10^3/uL (4.0-10.0) H 03/08/22 19:40 RBC 5.09 10^6/uL (4.1-5.3) 03/08/22 19:40 Hgb 16.1 g/dL (11.5-15.3) H 03/08/22 19:40 Hct 49.9 % (37.0-47.0) H 03/08/22 19:40 MCV 98.0 fl (81-99) 03/08/22 19:40 MCH 31.6 pg (28.0-34.0) 03/08/22 19:40 MCHC 32.3 g/dL (30.0-36.0) 03/08/22 19:40 RDW 12.8 % (12.1-15.1) 03/08/22 19:40 Plt Count 302 10^3/cmm (130-400) 03/08/22 19:40 MPV 11.2 fL (7.4-10.4) H 03/08/22 19:40 Neut % (Auto) 81.9 % 03/08/22 19:40 Lymph % (Auto) 9.6 % 03/08/22 19:40 [place] % (Auto) 7.9 % 03/08/22 19:40 Eos % (Auto) 0.1 % 03/08/22 19:40 Baso % (Auto) 0.1 % 03/08/22 19:40 Neut # (Auto) 13.15 10^3/uL (1.8-7.7) H 03/08/22 19:40 Lymph # (Auto) 1.5 10^3/uL (0.8-4.8) 03/08/22 19:40 [place] # (Auto) 1.3 10^3/uL (0.2-0.9) H 03/08/22 19:40 Eos # (Auto) 0.0 10^3/uL (0.0-0.8) 03/08/22 19:40 Baso # (Auto) 0.0 10^3/uL (0.0-0.1) 03/08/22 19:40 Nucleated RBC % (auto) 0 % 03/08/22 19:40 Nucleated RBCs # 0.0 /100WBC 03/08/22 19:40 Sodium 136 mmol/L (136-145) 03/08/22 19:40 Potassium 4.1 mmol/L (3.5-5.1) 03/08/22 19:40 Chloride 94 mmol/L (98-107) L 03/08/22 19:40 Carbon Dioxide 28 mmol/L (22-29) 03/08/22 19:40 Anion Gap 18.1 (5-19) 03/08/22 19:40 BUN 24 mg/dL (8-23) H 03/08/22 19:40 Creatinine 1.5 mg/dL (0.5-0.9) H 03/08/22 19:40 GFR Calculation Not Reportable 03/08/22 19:40 Glucose 136 mg/dL (65-115) H 03/08/22 19:40 Calculated Osmolality 288 mOsm/kg (285-295) 03/08/22 19:40 Calcium 10.1 mg/dL (8.5-10.5) 03/08/22 19:40 Total Bilirubin 0.5 mg/dL (0.15-1.2) 03/08/22 19:40 AST 19 U/L (0-32) 03/08/22 19:40 ALT 7 U/L (0-33) 03/08/22 19:40 Alkaline Phosphatase 103 U/L (35-105) 03/08/22 19:40 Total Protein 7.7 g/dL (6.6-8.7) 03/08/22 19:40 Albumin 3.9 g/dL (3.5-5.2) 03/08/22 19:40 Globulin 3.8 g/dL (1.3-4.6) 03/08/22 19:40 Lipase 13 U/L (13-60) 03/08/22 19:40 Discharge Plan Discharge Clinical Impression: Diverticulitis Condition: Stable Prescriptions: No Action hydrocodone-acetaminophen 10-325 mg tablet 1 tab PO Q6H PRN (Reason: Pain) metoprolol tartrate 100 mg tablet 100 mg PO BID lovastatin 20 mg tablet 20 mg PO BEDTIME Senna-S 8.6-50 mg tablet 1 tab-cap PO DAILY Qty: 30 0RF Coding Level of Care Code ED Strategic Intelligence Officer for Chg Fwd Exam Comprehensive
[2022-03-08 19:24] VITALS: BP 108/89; PULSE 77; RESP 16; O2SAT 96
[2022-03-08 19:44] VITALS: RESP 18
[2022-03-08] MEDS: ondansetron 2 mg/ML SDV 2 mL 4 MG IVP (19:44)
[2022-03-08] MEDS: morphine 4 mg/mL SDV 1 mL IVP (19:44)
[2022-03-08] MEDS: sodium chloride 0.9% 1,000 ML 999 ML IV (19:47)
[2022-03-08 20:00] LABS: Basophils % 0.1 %; Eosinophils % 0.1 %; Hematocrit 49.9 % (37.0-47.0); Hemoglobin 16.1 g/dL (11.5-15.3); Lymphocytes # 1.5 10^3/uL (0.8-4.8); Lymphocytes % 9.6 %; Mean Corpuscular HGB Conc 32.3 g/dL (30.0-36.0); Mean Corpuscular Hemoglobin 31.6 pg (28.0-34.0); Mean Platelet Volume 11.2 fL (7.4-10.4); Monocytes # 1.3 10^3/uL (0.2-0.9); Monocytes % 7.9 %; Neutrophils # 13.15 10^3/uL (1.8-7.7); Neutrophils % 81.9 %; Nucleated Red Blood Cells % 0 %; Platelet Count 302 10^3/cmm (130-400); Red Blood Count 5.09 10^6/uL (4.1-5.3); Red Cell Distribution Width 12.8 % (12.1-15.1); White Blood Count 16.1 10^3/uL (4.0-10.0)
[2022-03-08 20:24] LABS: Alanine Aminotransferase 7 U/L (0-33); Albumin Level 3.9 g/dL (3.5-5.2); Alkaline Phosphatase 103 U/L (35-105); Anion Gap 18.1 (5-19); Aspartate Amino Transferase 19 U/L (0-32); Blood Urea Nitrogen 24 mg/dL (8-23); Calcium 10.1 mg/dL (8.5-10.5); Carbon Dioxide 28 mmol/L (22-29); Chloride 94 mmol/L (98-107); Globulin 3.8 g/dL (1.3-4.6); Glucose 136 mg/dL (65-115); Lipase 13 U/L (13-60); Osmolality Calculated 288 mOsm/kg (285-295); Potassium 4.1 mmol/L (3.5-5.1); Sodium 136 mmol/L (136-145); Total Bilirubin 0.5 mg/dL (0.15-1.2); Total Protein 7.7 g/dL (6.6-8.7)
--- NOTE | 2022-03-08 20:44 | PC.NURSE ---
Pt resting quietly. Reports pain decreased to 4. [place] provided. Pt is alert.
[2022-03-08] MEDS: ciprofloxacin 400 MG/200 ML PREMIX 200 MG IV (21:02)
[2022-03-08 21:10] VITALS: BP 182/68; PULSE 77; RESP 16; O2SAT 94
[2022-03-08 21:18] LABS: Lactate (Lactic Acid level) 2.4 mmol/L (0.5-2.2)
--- NOTE | 2022-03-08 21:28 | PM.HP ---
Providers/Chief Complaint Chief Complaint: pain in the stomach really bad History of Present Illness Ketty Quijano is a 86 year old female with a past medical history of hypertension, diverticulitis, who presents [facility] due to left lower quadrant and right lower quadrant abdominal pain, bloody stool, nausea, no vomiting. Patient does not that she has chronic diverticulitis, she is had a since the 80s, she tells me whenever she has a diverticular attack she develops bloody stools, she feels nauseous, gets abdominal pain, but stable in the left lower quadrant. She tells me that now she started to develop left lower quadrant pain, radiating over to the right lower quadrant, with nausea, blood in her stools and blood with wiping, her stooling has decreased slightly. No fevers, no chills, no chest pain, shortness of breath Review of Systems Const: Denies: fever(s) or chills Card: Denies: chest pain Resp: Denies: dyspnea GI: Reports: abdominal pain, nausea, bloating and hematochezia Neuro: Denies: headache(s) or dizziness Medications/Allergies Home Medications Medication Instructions Recorded Confirmed Last Taken Type hydrocodone 10 mg-acetaminophen 1 tab PO Q6H PRN Pain 02/13/22 02/14/22 Unknown History 325 mg tablet lovastatin 20 mg tablet 20 mg PO BEDTIME 02/13/22 02/14/22 Unknown History metoprolol tartrate 100 mg tablet 100 mg PO BID 02/13/22 02/14/22 Unknown History sennosides 8.6 mg-docusate sodium 1 tab-cap PO DAILY #30 tabs 02/15/22 Unknown Rx 50 mg tablet (Senna-S) Allergies Allergy/AdvReac Type Severity Reaction Status Date / Time milk Allergy Unknown Verified 02/14/22 00:29 PFSH Acute PFSH: Medical History (Updated 03/08/22 @ 21:31 by Lowell Vann MD) Acute kidney injury superimposed on chronic kidney disease REAGAN (acute kidney injury) Colitis Diverticular hemorrhage Diverticulitis Gastroenteritis History of sciatica Hypertension Nausea & vomiting Sepsis Sepsis associated hypotension Thrombocytopenia Social History Substance/Drug Use: never Vitals/I&O/Wt Last Vital Signs Temp 97.6 F 03/08/22 16:50 Pulse 77 03/08/22 21:10 Resp 16 03/08/22 21:10 BP 182/68 03/08/22 21:10 Pulse Ox 94 03/08/22 21:10 O2 Del Method 03/08/22 21:10 03/08/22 03/08/22 03/08/22 06:59 14:59 22:59 Intake Total 1000 / 1000 Balance 1000 / 1000 Weight last 48 hrs Weight 74.843 kg Physical Exam Const: COMMON NORMALS: no acute distress and patient oriented x3 HENMT: COMMON NORMALS: normocephalic HEAD & SCALP: normocephalic Eye: COMMON NORMALS: Equal, round and reactive pupils present and EOMs intact bilaterally Neck/C-Spine: COMMON NORMALS: no JVD Resp: COMMON NORMALS: normal respiratory effort, No retractions, No use of accessory muscles and clear to auscultation bilaterally AUSCULTATION: clear to auscultation bilaterally Cardio: COMMON NORMALS: no JVD, regular rate, regular rhythm, S1 normal heart sound present and S2 normal heart sound present RATE: regular rate RHYTHM: regular rhythm HEART SOUNDS: S1 normal heart sound present and S2 normal heart sound present GI: OTHER: Abdomen soft, slightly distended, has exquisite left lower quadrant tenderness, mild right lower quadrant tenderness, no guarding, no rebound, no rigidity Extremity: COMMON NORMALS: no pedal edema Neuro: COMMON NORMALS: patient oriented x3 Psych: COMMON NORMALS: mental status grossly normal Data : 03/08/22 19:40 03/08/22 19:40 Micro: Microbiology 03/08/22 20:53 Blood Culture - Preliminary Blood SPECIMEN COLLECTED 03/08/22 20:50 Blood Culture - Preliminary Blood SPECIMEN COLLECTED A&P Assessment and plan (1) Diverticulitis: Status: Acute (2) REAGAN (acute kidney injury): Status: Acute Plan Acute diverticulitis 1. Significant improvement in the previously described colitis without complete resolution. 2. Interim development of sigmoid diverticulitis with a small phlegmon/developing abscess along the lateral aspect of the proximal sigmoid colon. No free air to suggest perforation. 3. Redemonstration of diastasis recti and a small umbilical hernia. 4. A small cystocele. 5. Additional non emergent findings as described above. Stomach and bowel: There are no abnormally dilated loops of small bowel. There has been near complete resolution of the transverse and descending colitis with some mild pericolonic stranding remaining in the proximal descending colon. However, has been interim development of thickening of the wall of the sigmoid that contains diverticula and pericolonic inflammatory stranding consistent with diverticulitis. There is no evidence of perforation. There is a soft tissue density extending 4.9 x 0.8 cm along the lateral aspect of the proximal sigmoid with heterogeneous density that may represent a phlegmon or developing abscess (series 4, image 61). -WBC 16.1, creatinine 1.5 Plan -Admit to general medical floors -N.p.o. -IV fluids -Cipro and Flagyl -Serial abdominal exams -Zofran for nausea -we will need to discuss with general surgery and radiology tomorrow ifDrainage is possible -Full code -SCDs for DVT prophylaxis, Lovenox on hold given complaints of bloody stools, Bloody stools, likely secondary diverticulitis, continue to monitor REAGAN, creatinine 1.5 monitor Attestations Medical Necessity Statement*: Patient requires hospitalization, inpatient, greater than 2 midnights, for left lower quadrant pain, diverticulitis Coding Level of Care Code Acute Transportation Modeler for [facility] Diagnoses Diverticulitis K57.92 REAGAN (acute kidney injury) N17.9
[2022-03-08 21:48] VITALS: BP 171/84; RESP 16; O2SAT 94
[2022-03-08] MEDS: metroNIDAZOLE IV 500 MG/100 ML PREMIX 100 MG IV (22:25)
[2022-03-08 22:26] VITALS: BP 148/80; PULSE 73; RESP 16; TEMP 36.7; O2SAT 94
[2022-03-08] MEDS: pantoprazole 40 mg SDV IVP (23:29)
[2022-03-08] MEDS: sodium chloride 0.9% 1,000 ML 75 ML IV (23:30)
[2022-03-09] VITALS (7 sets, daily range): BP systolic 137–140; BP diastolic 52–73; PULSE 71–80; RESP 16–22; TEMP 36.4–36.9; O2SAT 94–96
[2022-03-09] MEDS: metroNIDAZOLE IV 500 MG/100 ML PREMIX 100 MG IV (04:42)
[2022-03-09] MEDS: HYDROmorphone 1 mg/mL INJ 1 mL 0.5 MG IVP (04:42)
[2022-03-09] MEDS: lanolin oint 7 gm 1 APPLIC TOPICAL (04:57)
[2022-03-09 05:32] LABS: Add Urine Microscopic? YES; Bilirubin Urine Neg (Negative); Blood Urine 3+ (Negative); Glucose Urine UA Norm (Normal); Ketones Urine Negative (Negative); Leukocyte Esterase Urine 2+ (Negative); Nitrate Urine Negative (Negative); Protein Urine Neg (Negative); Specific Gravity, Urine 1.015 (1.005-1.030); Urine Appearance Cloudy (CLEAR); Urine Color Yellow (Yellow); Urobilinogen Urine Norm (Negative); pH Urine 5 (5-7)
[2022-03-09 05:33] LABS: Add Urine Culture? Yes; Bacteria Urine 4+ /hpf; RBC Urine TOO NUMEROUS TO CNT /hpf (0-2); WBC Urine TOO NUMEROUS TO CNT /hpf (0-5)
[2022-03-09 05:43] LABS: Basophils % 0.3 %; Eosinophils # 0.1 10^3/uL (0.0-0.8); Eosinophils % 0.5 %; Hematocrit 43.1 % (37.0-47.0); Hemoglobin 13.7 g/dL (11.5-15.3); Lymphocytes # 2.1 10^3/uL (0.8-4.8); Lymphocytes % 17.5 %; Mean Corpuscular HGB Conc 31.8 g/dL (30.0-36.0); Mean Corpuscular Hemoglobin 31.6 pg (28.0-34.0); Mean Corpuscular Volume 99.3 fl (81-99); Mean Platelet Volume 11.4 fL (7.4-10.4); Monocytes # 1.4 10^3/uL (0.2-0.9); Monocytes % 11.5 %; Neutrophils # 8.29 10^3/uL (1.8-7.7); Neutrophils % 69.9 %; Nucleated Red Blood Cells % 0 %; Platelet Count 249 10^3/cmm (130-400); Red Blood Count 4.34 10^6/uL (4.1-5.3); Red Cell Distribution Width 12.8 % (12.1-15.1); White Blood Count 11.9 10^3/uL (4.0-10.0)
[2022-03-09 06:04] LABS: Alanine Aminotransferase 6 U/L (0-33); Albumin Level 2.6 g/dL (3.5-5.2); Alkaline Phosphatase 79 U/L (35-105); Anion Gap 13.7 (5-19); Aspartate Amino Transferase 13 U/L (0-32); Blood Urea Nitrogen 20 mg/dL (8-23); Calcium 8.4 mg/dL (8.5-10.5); Carbon Dioxide 26 mmol/L (22-29); Chloride 101 mmol/L (98-107); Globulin 3.6 g/dL (1.3-4.6); Glucose 103 mg/dL (65-115); Magnesium 1.2 mg/dL (1.7-2.3); Osmolality Calculated 287 mOsm/kg (285-295); Phosphorus 1.9 mg/dL (2.5-4.5); Potassium 3.7 mmol/L (3.5-5.1); Sodium 137 mmol/L (136-145); Total Bilirubin 0.5 mg/dL (0.15-1.2); Total Protein 6.2 g/dL (6.6-8.7)
--- NOTE | 2022-03-09 09:03 | P.PN_ITS ---
Subjective Subjective: I did discuss this case with Dr. Mai who recommended IR drainage, our IR is not able to do CT-guided drainage, will transfer patient to [facility] Patient is endorsing feeling better No fever No worsening of leukocytosis or signs of sepsis She is n.p.o. Anxious Vitals/I&O/Wt Last Vital Signs Temp 98.4 F 03/09/22 07:38 Pulse 80 03/09/22 07:38 Resp 18 03/09/22 07:38 BP 140/70 03/09/22 07:38 Pulse Ox 94 03/09/22 07:38 O2 Del Method 03/09/22 07:38 03/08/22 03/09/22 03/09/22 22:59 06:59 14:59 Intake Total 1200 / 1200 200 / 1400 Balance 1200 / 1200 200 / 1400 Weight last 48 hrs Weight 74.843 kg Physical Exam Narrative: AWake and alert Euvolemic Abdomen is tender around umbilical and left lower quadrant Otherwise no guarding, rigidity Awake and alert Nonfocal neuro exam ,, PERRLA S1, S2 Currently on room air Data : 03/09/22 05:18 03/09/22 05:18 Micro: Microbiology 03/08/22 20:53 Blood Culture - Preliminary Blood SPECIMEN COLLECTED 03/08/22 20:50 Blood Culture - Preliminary Blood SPECIMEN COLLECTED A&P Assessment and plan (1) Diverticulitis: Status: Acute Plan Diverticulitis with abscess Discussed case with general surgery who recommended IR drainage Patient will be transferred to [facility] once accepted I have presented this case to them already Intervention radiology is still in the process of learning the new CT scanner in her hospital do so they are not able to do IR guided drainage today Dr. Mai recommended transfer She is not septic or bacteremic Chronic kidney disease creatinine seems to be at baseline She is n.p.o. Continue IV fluids and antibiotics She is full code I will update her son Hold DVT prophylaxis with anticoagulating agent, only SCDs Attestations Medical Necessity Statement*: Patient will need transfer Time Spent in Patient Care: 35 Coding Level of Care Code Acute Dye Blender for Myrtle Freeman Diagnoses Diverticulitis K57.92
[2022-03-09] MEDS: metoprolol tartrate 50 mg Tablet 100 MG PO (09:16)
[2022-03-09] MEDS: ciprofloxacin 400 MG/200 ML PREMIX 200 MG IV (09:17)
[2022-03-09] MEDS: pantoprazole 40 mg SDV IVP (10:35)
--- NOTE | 2022-03-09 11:45 | PM.TDS ---
Transfer Summary Providers Date of Admission: 03/08/22 21:43 Date of Discharge/Transfer: 03/09/22 Attending Provider at Admission: Lowell Vann MD Attending Provider at Transfer: Avani Tabor MD Transfer Plans: Anticipated date of transfer: 03/09/22. Diagnoses at Discharge Discharge Diagnosis (1) Diverticulitis: Status: Acute Reason for Visit Reason for Visit pain in the stomach really bad Hospital Course Hospital Course 66-year-old female who was admitted for recurrent nausea and vomiting and abdominal pain she was diagnosed with diverticulitis and abscess formation 4.9 cm x 0.8 cm along lateral aspect of proximal sigmoid with heterogenous density that is representing a phlegmon and abscess. Patient is not septic or bacteremic. She is afebrile hemodynamically stable. I did speak with our general surgeon who recommended IR drainage, unfortunately we cannot do CT-guided drain yet because the CT scan is new and our staff needs to be trained on that first, I have spoken with [facility], patient and family is in agreement. Her son Kyle [phone] is in agreement as well for the transfer for abscess drainage. Accepting physician is Dr. Lakhani FINDINGS: Lungs: The visualized lung mcgovern show mild bibasilar atelectasis. Liver: Normal size and homogeneous density. No liver mass is seen. Gallbladder and bile ducts: No calcified gallstones. No ductal dilation. Pancreas: Normal size and homogeneous density. No ductal dilation. Spleen: Normal. No splenomegaly. Adrenal glands: Normal. No mass. Kidneys and ureters: No evidence of hydronephrosis. No renal or ureteral calculi. Stomach and bowel: There are no abnormally dilated loops of small bowel. There has been near complete resolution of the transverse and descending colitis with some mild pericolonic stranding remaining in the proximal descending colon. However, has been interim development of thickening of the wall of the sigmoid that contains diverticula and pericolonic inflammatory stranding consistent with diverticulitis. There is no evidence of perforation. There is a soft tissue density extending 4.9 x 0.8 cm along the lateral aspect of the proximal sigmoid with heterogeneous density that may represent a phlegmon or developing abscess (series 4, image 61). Appendix: No evidence of appendicitis. Intraperitoneal space: There is no free air in the peritoneal cavity. Vasculature: There is extensive atherosclerotic calcification and tortuosity of the abdominal aorta and its branches. No abdominal aortic aneurysm is identified. Lymph nodes: No enlarged retroperitoneal or mesenteric lymph nodes. Urinary bladder: There is redemonstration of a small cystocele (series 4, images 68-73). Reproductive: There has been prior hysterectomy. Bones/joints: There is no acute fracture. There is mild levoconvex rotoscoliosis of the lumbar spine. Multilevel degenerative disc disease and vacuum disc associated with prominent anterior, lateral and posterior osteophytes. Soft tissues: In the mid lower abdomen, there is diastasis recti containing adipose tissue. There is a small fat-containing umbilical hernia. CT/CT abdomen pelvis wo con [id number] IMPRESSION: 1. Significant improvement in the previously described colitis without complete resolution. 2. Interim development of sigmoid diverticulitis with a small phlegmon/developing abscess along the lateral aspect of the proximal sigmoid colon. No free air to suggest perforation. 3. Redemonstration of diastasis recti and a small umbilical hernia. 4. A small cystocele. 5. Additional non emergent findings as described above Physical Exam Narrative: AWake and alert Euvolemic Abdomen is tender around umbilical and left lower quadrant Otherwise no guarding, rigidity Awake and alert Nonfocal neuro exam ,, PERRLA S1, S2 Currently on room air TS Data Studies Completed and Pending Pending at discharge Category Date Time Status Blood Culture Stat Lab 03/08/22 20:53 Results Clostridioides Difficile PCR Routine Lab 03/08/22 20:01 Uncollected Complete Blood Count w/Auto AM LABS Lab 03/10/22 04:00 Ordered Complete Blood Count w/Auto AM LABS Lab 03/11/22 04:00 Ordered Comprehensive Metabolic Panel AM LABS Lab 03/10/22 04:00 Ordered Comprehensive Metabolic Panel AM LABS Lab 03/11/22 04:00 Ordered Fecal Occult Blood [Immunochemical Fecal OCB] Routine Lab 03/08/22 23:19 Uncollected Magnesium AM LABS Lab 03/10/22 04:00 Ordered Magnesium AM LABS Lab 03/11/22 04:00 Ordered Phosphorus AM LABS Lab 03/10/22 04:00 Ordered Phosphorus AM LABS Lab 03/11/22 04:00 Ordered Urine Culture Stat Lab 03/09/22 04:30 Received Labs from last 24 hours 03/09/22 03/09/22 03/09/22 05:18 05:18 04:30 WBC 11.9 H RBC 4.34 Hgb 13.7 Hct 43.1 MCV 99.3 H MCH 31.6 MCHC 31.8 RDW 12.8 Plt Count 249 MPV 11.4 H Neut % (Auto) 69.9 Lymph % (Auto) 17.5 [place] % (Auto) 11.5 Eos % (Auto) 0.5 Baso % (Auto) 0.3 Neut # (Auto) 8.29 H Lymph # (Auto) 2.1 [place] # (Auto) 1.4 H Eos # (Auto) 0.1 Baso # (Auto) 0.0 Nucleated RBC % (auto) 0 Nucleated RBCs # 0.0 Sodium 137 Potassium 3.7 Chloride 101 Carbon Dioxide 26 Anion Gap 13.7 BUN 20 Creatinine 1.4 H GFR Calculation Not Reportable Glucose 103 Calculated Osmolality 287 Lactate Calcium 8.4 L Phosphorus 1.9 L Magnesium 1.2 L Total Bilirubin 0.5 AST 13 ALT 6 Alkaline Phosphatase 79 Total Protein 6.2 L Albumin 2.6 L Globulin 3.6 Lipase Urine Color Yellow Urine Appearance Cloudy Urine pH [address] 1.015 Urine Protein Neg Urine Glucose (UA) Norm Urine Ketones Negative Urine Blood 3+ H Urine Nitrate Negative Urine Bilirubin Neg Urine Urobilinogen Norm Ur Leukocyte Esterase 2+ H Urine RBC Too numerous to cnt H Urine WBC Too numerous to cnt H Ur Squamous Epith Cells 5-10 H Amorphous Sediment Not Reportable Urine Bacteria 4+ H 03/08/22 03/08/22 03/08/22 20:50 19:40 19:40 WBC 16.1 H RBC 5.09 Hgb 16.1 H Hct 49.9 H MCV 98.0 MCH 31.6 MCHC 32.3 RDW 12.8 Plt Count 302 MPV 11.2 H Neut % (Auto) 81.9 Lymph % (Auto) 9.6 [place] % (Auto) 7.9 Eos % (Auto) 0.1 Baso % (Auto) 0.1 Neut # (Auto) 13.15 H Lymph # (Auto) 1.5 [place] # (Auto) 1.3 H Eos # (Auto) 0.0 Baso # (Auto) 0.0 Nucleated RBC % (auto) 0 Nucleated RBCs # 0.0 Sodium 136 Potassium 4.1 Chloride 94 L Carbon Dioxide 28 Anion Gap 18.1 BUN 24 H Creatinine 1.5 H GFR Calculation Not Reportable Glucose 136 H Calculated Osmolality 288 Lactate 2.4 H Calcium 10.1 Phosphorus Magnesium Total Bilirubin 0.5 AST 19 ALT 7 Alkaline Phosphatase 103 Total Protein 7.7 Albumin 3.9 Globulin 3.8 Lipase 13 Urine Color Urine Appearance Urine pH Ur Specific Half Way Urine Protein Urine Glucose (UA) Urine Ketones Urine Blood Urine Nitrate Urine Bilirubin Urine Urobilinogen Ur Leukocyte Esterase Urine RBC Urine WBC Ur Squamous Epith Cells Amorphous Sediment Urine Bacteria Completed Studies During Hospitalization Category Date Time Status CT abdomen pelvis wo con [id number] Stat Cat Scan 03/08/22 18:49 Completed Laboratory Last Values WBC 11.9 10^3/uL (4.0-10.0) H 03/09/22 05:18 RBC 4.34 10^6/uL (4.1-5.3) 03/09/22 05:18 Hgb 13.7 g/dL (11.5-15.3) 03/09/22 05:18 Hct 43.1 % (37.0-47.0) 03/09/22 05:18 MCV 99.3 fl (81-99) H 03/09/22 05:18 MCH 31.6 pg (28.0-34.0) 03/09/22 05:18 MCHC 31.8 g/dL (30.0-36.0) 03/09/22 05:18 RDW 12.8 % (12.1-15.1) 03/09/22 05:18 Plt Count 249 10^3/cmm (130-400) 03/09/22 05:18 MPV 11.4 fL (7.4-10.4) H 03/09/22 05:18 Neut % (Auto) 69.9 % 03/09/22 05:18 Lymph % (Auto) 17.5 % 03/09/22 05:18 [place] % (Auto) 11.5 % 03/09/22 05:18 Eos % (Auto) 0.5 % 03/09/22 05:18 Baso % (Auto) 0.3 % 03/09/22 05:18 Neut # (Auto) 8.29 10^3/uL (1.8-7.7) H 03/09/22 05:18 Lymph # (Auto) 2.1 10^3/uL (0.8-4.8) 03/09/22 05:18 [place] # (Auto) 1.4 10^3/uL (0.2-0.9) H 03/09/22 05:18 Eos # (Auto) 0.1 10^3/uL (0.0-0.8) 03/09/22 05:18 Baso # (Auto) 0.0 10^3/uL (0.0-0.1) 03/09/22 05:18 Nucleated RBC % (auto) 0 % 03/09/22 05:18 Nucleated RBCs # 0.0 /100WBC 03/09/22 05:18 Sodium 137 mmol/L (136-145) 03/09/22 05:18 Potassium 3.7 mmol/L (3.5-5.1) 03/09/22 05:18 Chloride 101 mmol/L (98-107) 03/09/22 05:18 Carbon Dioxide 26 mmol/L (22-29) 03/09/22 05:18 Anion Gap 13.7 (5-19) 03/09/22 05:18 BUN 20 mg/dL (8-23) 03/09/22 05:18 Creatinine 1.4 mg/dL (0.5-0.9) H 03/09/22 05:18 GFR Calculation Not Reportable 03/09/22 05:18 Glucose 103 mg/dL (65-115) 03/09/22 05:18 Calculated Osmolality 287 mOsm/kg (285-295) 03/09/22 05:18 Lactate 2.4 mmol/L (0.5-2.2) H 03/08/22 20:50 Calcium 8.4 mg/dL (8.5-10.5) L 03/09/22 05:18 Phosphorus 1.9 mg/dL (2.5-4.5) L 03/09/22 05:18 Magnesium 1.2 mg/dL (1.7-2.3) L 03/09/22 05:18 Total Bilirubin 0.5 mg/dL (0.15-1.2) 03/09/22 05:18 AST 13 U/L (0-32) 03/09/22 05:18 ALT 6 U/L (0-33) 03/09/22 05:18 Alkaline Phosphatase 79 U/L (35-105) 03/09/22 05:18 Total Protein 6.2 g/dL (6.6-8.7) L 03/09/22 05:18 Albumin 2.6 g/dL (3.5-5.2) L 03/09/22 05:18 Globulin 3.6 g/dL (1.3-4.6) 03/09/22 05:18 Lipase 13 U/L (13-60) 03/08/22 19:40 Urine Color Yellow (Yellow) 03/09/22 04:30 Urine Appearance Cloudy (CLEAR) 03/09/22 04:30 Urine pH 5 (5-7) 03/09/22 04:[address] 1.015 (1.005-1.030) 03/09/22 04:30 Urine Protein Neg (Negative) 03/09/22 04:30 Urine Glucose (UA) Norm (Normal) 03/09/22 04:30 Urine Ketones Negative (Negative) 03/09/22 04:30 Urine Blood 3+ (Negative) H 03/09/22 04:30 Urine Nitrate Negative (Negative) 03/09/22 04:30 Urine Bilirubin Neg (Negative) 03/09/22 04:30 Urine Urobilinogen Norm mg/dL (Negative) 03/09/22 04:30 Ur Leukocyte Esterase 2+ (Negative) H 03/09/22 04:30 Urine RBC Too numerous to cnt /hpf (0-2) H 03/09/22 04:30 Urine WBC Too numerous to cnt /hpf (0-5) H 03/09/22 04:30 Ur Squamous Epith Cells 5-10 /hpf (0-5) H 03/09/22 04:30 Amorphous Sediment Not Reportable 03/09/22 04:30 Urine Bacteria 4+ /hpf (NONE) H 03/09/22 04:30 Radiology Impressions Abdomen/Pelvis CT 03/08/22 18:49 IMPRESSION: 1. Significant improvement in the previously described colitis without complete resolution. 2. Interim development of sigmoid diverticulitis with a small phlegmon/developing abscess along the lateral aspect of the proximal sigmoid colon. No free air to suggest perforation. 3. Redemonstration of diastasis recti and a small umbilical hernia. 4. A small cystocele. 5. Additional non emergent findings as described above. ADDENDUM: 03/08/222117 There is an indeterminate 16 mm left adrenal adenoma, stable from the comparison study of 02/13/2022 and minimally changed from 12/26/2010. Recent Clincial Data Last Vital Signs Temp 98.2 F 03/09/22 11:20 Pulse 79 03/09/22 11:20 Resp 18 03/09/22 11:20 BP 137/72 03/09/22 11:20 Pulse Ox 95 03/09/22 11:20 O2 Del Method 03/09/22 11:20 Vital Signs Temp Pulse Resp BP Pulse Ox O2 Del Method 03/09/22 11:20 98.2 F 79 18 137/72 95 Room Air 03/09/22 07:38 98.4 F 80 18 140/70 94 Room Air 03/09/22 04:00 98.3 F 72 18 138/52 96 03/09/22 04:42 16 03/09/22 03:06 71 03/09/22 00:00 97.6 F 75 22 H 138/73 95 Intake & Output/Weight 03/07/22 03/08/22 03/09/22 03/10/22 06:59 06:59 06:59 06:59 Intake Total 1400 / 1400 200 / 200 Output Total 250 / 250 Balance 1400 / 1400 -50 / -50 Weight 74.843 kg Vitals Last Vital Signs Temp 98.2 F 03/09/22 11:20 Pulse 79 03/09/22 11:20 Resp 18 03/09/22 11:20 BP 137/72 03/09/22 11:20 Pulse Ox 95 03/09/22 11:20 O2 Del Method 03/09/22 11:20 TS Medications Medications Acetaminophen (Acetaminophen 325 Mg Tablet) 650 mg PO Q6H PRN PRN Reason: Mild/Mod Pain Or Temp >/= 101 Atorvastatin Calcium (Atorvastatin 40 Mg Tablet) 20 mg PO BEDTIME DIONY Hydromorphone HCl (Hydromorphone 1 Mg/Ml Inj 1 Ml) 0.5 mg IVP Q4H PRN PRN Reason: PAIN Last Admin: 03/09/22 04:42 Dose: 0.5 mg Metronidazole (Flagyl Iv) 500 mg in 100 mls @ 100 mls/hr IV Q8H DIONY; Protocol Last Infusion: 03/09/22 05:25 Dose: Infused Sodium Chloride (Sodium Chloride 0.9%) 1,000 mls @ 75 mls/hr IV .[id number] DIONY Last Admin: 03/08/22 23:30 Dose: 75 mls/hr Ciprofloxacin/Dextrose (Cipro) 400 mg in 200 mls @ 200 mls/hr IV Q24H DIONY; Protocol Lanolin (Lanolin Oint 7 Gm) 1 applic TOPICAL PRN PRN PRN Reason: DRYNESS Last Admin: 03/09/22 04:57 Dose: 1 applic Metoprolol Tartrate (Metoprolol Tartrate 50 Mg Tablet) 100 mg PO BID DIONY Last Admin: 03/09/22 09:16 Dose: 100 mg Ondansetron HCl (Ondansetron 2 Mg/Ml Sdv 2 Ml) 4 mg IVP Q8H PRN PRN Reason: vomiting, or N/V if npo Pantoprazole Sodium (Pantoprazole 40 Mg Sdv) 40 mg IVP Q12H DIONY Last Admin: 03/09/22 10:35 Dose: 40 mg Discontinued Medications Sodium Chloride (Sodium Chloride 0.9%) 1,000 mls @ 999 mls/hr IV .Q1H1M ONE Stop: 03/08/22 20:03 Last Infusion: 03/08/22 21:10 Dose: Infused Ciprofloxacin/Dextrose (Cipro) 400 mg in 200 mls @ 200 mls/hr IV ONCE ONE; Protocol Stop: 03/08/22 21:21 Last Infusion: 03/08/22 22:25 Dose: Infused Metronidazole (Flagyl Iv) 500 mg in 100 mls @ 100 mls/hr IV ONCE ONE Stop: 03/08/22 21:21 Last Infusion: 03/08/22 23:16 Dose: Infused Ciprofloxacin/Dextrose (Cipro) 400 mg in 200 mls @ 200 mls/hr IV Q12H DIONY; Protocol Last Infusion: 03/09/22 10:40 Dose: Infused Morphine Sulfate (Morphine 4 Mg/Ml Sdv 1 Ml) 4 mg IVP ONCE ONE Stop: 03/08/22 19:04 Last Admin: 03/08/22 19:44 Dose: 4 mg Ondansetron HCl (Ondansetron 2 Mg/Ml Sdv 2 Ml) 4 mg IVP ONCE ONE Stop: 03/08/22 19:04 Last Admin: 03/08/22 19:44 Dose: 4 mg Allergies milk Allergy (Verified 02/14/22 00:29) Unknown Home Medications hydrocodone 10 mg-acetaminophen 325 mg tablet 1 tab PO Q6H PRN Pain 02/13/22 [History Confirmed 03/08/22] lovastatin 20 mg tablet 20 mg PO BEDTIME 02/13/22 [History Confirmed 03/08/22] metoprolol tartrate 100 mg tablet 100 mg PO BID 02/13/22 [History Confirmed 03/08/22] sennosides 8.6 mg-docusate sodium 50 mg tablet (Senna-S) 1 tab-cap PO DAILY #30 tabs 02/15/22 [Rx Confirmed 03/08/22] Discharge Plan Discharge Patient Disposition: Home Condition: Stable Prescriptions: No Action hydrocodone-acetaminophen 10-325 mg tablet 1 tab PO Q6H PRN (Reason: Pain) metoprolol tartrate 100 mg tablet 100 mg PO BID lovastatin 20 mg tablet 20 mg PO BEDTIME sennosides-docusate sodium [Senna-S] 8.6-50 mg tablet 1 tab-cap PO DAILY Qty: 30 0RF Discharge Orders: Transfer Out of Facility (Order); Ordered 03/09/22 Ordered By: Avani Tabor Patient Instructions: Opioid Safety Transfer Attestations Time Spent in Transfer Care: less than 30 min Quality Metrics Clinical Quality Measures [ No reported AMI, CVA or VTE this stay] Coding Level of Care Code Acute Head Porter Baggage for Myrtle Freeman Diagnoses Diverticulitis K57.92
--- NOTE | 2022-03-09 14:00 | PC.NURSE ---
Report called to Alan ALEXANDER at [facility]. Patient transported via EMS. teletypesetter monitor removed prior to discharge
== END 2022-03-09 13:50 | disposition short-term general hospital (02) | DRG 392 ==
LOC: ER 21:43 → MEDSURG 21:44
PROVIDERS: Family Medicine; Admitting Provider Family Medicine; Emergency Provider Emergency Medicine; Visit Provider Internal Medicine
DX: K57.20 Diverticulitis of large intestine with perforation and abscess without bleeding (principal); N17.9 Acute kidney failure, unspecified; I11.0 Hypertensive heart disease with heart failure; N18.9 Chronic kidney disease, unspecified; Z79.891 Long term (current) use of opiate analgesic
CPT/HCPCS: 36415; 74176; 80053; 81001; 83605; 83690; 83735; 84100; 85025; 87040; 87077; 87086; 87186; 96365; 96367; 96375; 99285; C9113; J0744; J1170; J2270; J2405; J7030; S0030

== ENCOUNTER 2022-03-18 14:36 | Emergency (ER) | payer MEDICARE, SELFPAY ==
[2022-03-18 15:23] VITALS: BP 165/79; PULSE 80; RESP 18; TEMP 36.7; O2SAT 99; BMI 31.9
[2022-03-18 16:26] LABS: Basophils # 0.1 10^3/uL (0.0-0.1); Basophils % 0.5 %; Eosinophils # 0.2 10^3/uL (0.0-0.8); Eosinophils % 1.7 %; Hematocrit 50.2 % (37.0-47.0); Hemoglobin 16.4 g/dL (11.5-15.3); Lymphocytes % 17.8 %; Mean Corpuscular HGB Conc 32.7 g/dL (30.0-36.0); Mean Corpuscular Hemoglobin 32.1 pg (28.0-34.0); Mean Corpuscular Volume 98.2 fl (81-99); Mean Platelet Volume 11.2 fL (7.4-10.4); Monocytes # 0.9 10^3/uL (0.2-0.9); Monocytes % 8.2 %; Neutrophils # 8.16 10^3/uL (1.8-7.7); Neutrophils % 71.4 %; Nucleated Red Blood Cells % 0 %; Platelet Count 272 10^3/cmm (130-400); Red Blood Count 5.11 10^6/uL (4.1-5.3); Red Cell Distribution Width 13.3 % (12.1-15.1); White Blood Count 11.4 10^3/uL (4.0-10.0)
[2022-03-18 16:49] LABS: Lactic Sepsis W/Reflex 1.8 mmol/L (0.5-2.2)
[2022-03-18 16:50] LABS: Alanine Aminotransferase < 5 U/L (0-33); Albumin Level 3.4 g/dL (3.5-5.2); Alkaline Phosphatase 79 U/L (35-105); Aspartate Amino Transferase 15 U/L (0-32); Blood Urea Nitrogen 26 mg/dL (8-23); Calcium 9.9 mg/dL (8.5-10.5); Carbon Dioxide 26 mmol/L (22-29); Chloride 97 mmol/L (98-107); Globulin 4.2 g/dL (1.3-4.6); Glucose 120 mg/dL (65-115); Lipase 37 U/L (13-60); Osmolality Calculated 288 mOsm/kg (285-295); Sodium 136 mmol/L (136-145); Total Bilirubin 0.4 mg/dL (0.15-1.2); Total Protein 7.6 g/dL (6.6-8.7)
[2022-03-18 16:58] LABS: Anion Gap 16.6 (5-19)
[2022-03-18 16:59] LABS: Potassium 3.6 mmol/L (3.5-5.1)
--- NOTE | 2022-03-18 18:24 | CTR_ITS ---
PROCEDURE INFORMATION: Exam: CT Abdomen And Pelvis With Contrast Exam date and time: 03/18/2022 6:54 PM Age: 87 years old Clinical indication: Nausea and vomiting; Abdominal pain; Generalized; Prior surgery; Surgery type: Hyster; Additional info: Abd pain, vomiting, HX diverticulitis TECHNIQUE: Imaging protocol: Computed tomography of the abdomen and pelvis with contrast. Radiation optimization: All CT scans at this facility use at least one of these dose optimization techniques: automated exposure control; mA and/or kV adjustment per patient size (includes targeted exams where dose is matched to clinical indication); or iterative reconstruction. Contrast material: OMNI 350; Contrast volume: 80 ml; Contrast route: INTRAVENOUS (IV); COMPARISON: CT abdomen pelvis wo con [id number] 03/08/2022 7:10 PM RADIATION DOSE METRICS: Total DLP (mGy-cm): 739.2 FINDINGS: Lungs: Centrilobular emphysema is present. Liver: Normal. No mass. Gallbladder and bile ducts: Normal. No calcified stones. No ductal dilation. Pancreas: Normal. No ductal dilation. Spleen: Normal. No splenomegaly. Adrenal glands: Normal. No mass. Kidneys and ureters: There is a 1.8 cm cyst in the right kidney. The kidneys are otherwise unremarkable. Stomach and bowel: There is diverticulosis without evidence of diverticulitis. Appendix: No evidence of appendicitis. Intraperitoneal space: Unremarkable. No free air. No significant fluid collection. Vasculature: Moderate diffuse atherosclerotic disease is present. Lymph nodes: Unremarkable. No enlarged lymph nodes. Urinary bladder: Unremarkable as visualized. Reproductive: The uterus is surgically absent. Bones/joints: Degenerative changes of the spine seen. Soft tissues: Unremarkable. CT/CT abdomen pelvis w con* [id number] IMPRESSION: No acute intra-abdominal or intrapelvic pathology. COMMENTS: Consistent with the [employer] [employer]'s Incidental Findings Committee white paper (J Am Froilan Radiol 2018): Any incidental renal lesion less than 1 cm or classified as too small to characterize, or any incidental cystic renal lesion characterized as simple-appearing, is likely benign. No follow-up imaging is recommended for these lesions per consensus recommendations based on imaging criteria.
--- NOTE | 2022-03-18 18:27 | W.ED.NAVMDI ---
HPI - Nausea/Vomiting/Diarrhea General: Chief complaint: Nausea/Vomiting/Diarrhea Stated complaint: ABD PAIN Time Seen by Provider: 03/18/22 18:17 Source: patient History of Present Illness: 87-year-old female with a history of diverticulitis. She was discharged from [facility] days ago after being treated for diverticulitis. She notes that she had done well until today, when her belly pain returned, as did vomiting. She may or may not have had a very mild amount of blood in her stool. Her belly pain is diffuse. She denies fever. She denies cough or respiratory symptoms. MD elicited complaint: nausea, vomiting and abdominal pain Description of vomiting: food contents Associated nausea: Yes Associated abdominal pain: Yes Location of pain: Diffuse Radiation: diffuse Pain consistency: constant Severity: moderate Exacerbating factors: movement Relieving factors: none Associated symtoms: Reports fatigue and nausea; Denies altered mental status, change in vision, chest pain, decreased urine output, dizziness, fevers/chills, headache(s), short of breath or syncope Review of Systems Const: Reports: fatigue Eyes: Denies: change in vision Card: Denies: chest pain or syncope Resp: Denies: dyspnea, productive cough, non-productive cough or wheezing GI: Reports: abdominal pain, nausea and vomiting : Denies: difficulty voiding Skin/Breast: Denies: rash Neuro: Denies: headache(s), weakness in extremities, dizziness or confusion [facility] ED PFSH: Medical History Acute kidney injury superimposed on chronic kidney disease REAGAN (acute kidney injury) Colitis Diverticular hemorrhage Diverticulitis Gastroenteritis History of sciatica Hypertension Nausea & vomiting Sepsis Sepsis associated hypotension Thrombocytopenia Physical Exam Const: COMMON NORMALS: no acute distress EXAM LIMITATIONS: no altered mental status GENERAL APPEARANCE: cooperative; not ill appearing and not frail appearing HENMT: COMMON NORMALS: normocephalic, atraumatic and Normal external nose present HEAD & SCALP: normocephalic and atraumatic FACE & SINUS: normal facial exam NOSE: Normal external nose present Eye: COMMON NORMALS: Equal, round and reactive pupils present and EOMs intact bilaterally PUPIL: Yes Equal, round and reactive pupils present Neck/C-Spine: GENERAL: Yes trachea midline Chest: CHEST: Yes Symmetrical chest wall rise Resp: COMMON NORMALS: normal respiratory effort, No retractions, No use of accessory muscles and clear to auscultation bilaterally AUSCULTATION: clear to auscultation bilaterally Cardio: COMMON NORMALS: regular rate and regular rhythm RATE: regular rate RHYTHM: regular rhythm GI: COMMON NORMALS: Normal to inspection, nondistended, normoactive bowel sounds present PALPATION: Yes Tenderness to palpation present (GI) (Diffuse) and Yes Guarding due to palpation present (GI) : COMMON NORMALS: Yes no CVA tenderness BLADDER/KIDNEY EXAM: Yes no CVA tenderness Back/Pelvis: COMMON NORMALS: no CVA tenderness Extremity: GENERAL: Yes edema (1+) Neuro: KARTHIKEYAN COMA SCALE: document GCS findings Karthikeyan coma scale eye opening: Spontaneous Karthikeyan coma scale verbal response: Orientated [place] coma scale motor response: Obey commands [place] coma scale total score: 15 SENSORY EXAM: Yes extremities (intact) Psych: COMMON NORMALS: speech normal SPEECH: Yes normal speech Skin: COMMON NORMALS: no rashes or lesions noted GENERAL SKIN EXAM: no rashes or lesions noted Course Vital Signs: Vital signs: Vital Signs Temperature 98.1 F 03/18/22 15:23 Pulse Rate 78 03/18/22 18:29 Respiratory Rate 16 03/18/22 18:29 Blood Pressure 136/90 03/18/22 18:29 Pulse Oximetry 95 03/18/22 18:29 Oxygen Delivery Me thod 03/18/22 15:23 MDM - Nausea/Vomiting/Diarrhea Medical Decision Making 87-year-old female with a history of diverticulitis. She presents with vomiting this morning and some belly pain. Her white blood cell count is 11.4 with 70% neutrophils. Hemoglobin is 16 creatinine is baseline at 1.3. Urinalysis is contaminated, but does not give a clear picture of UTI. Her CT is negative for any acute intra-abdominal or intrapelvic pathology. There is no diverticulitis Lab Data : 03/18/22 16:10 03/18/22 16:10 Radiology Impressions Abdomen/Pelvis CT 03/18/22 18:24 IMPRESSION: No acute intra-abdominal or intrapelvic pathology. COMMENTS: Consistent with the [employer]'s Incidental Findings Committee white paper (J Am Froilan Radiol 2018): Any incidental renal lesion less than 1 cm or classified as too small to characterize, or any incidental cystic renal lesion characterized as simple-appearing, is likely benign. No follow-up imaging is recommended for these lesions per consensus recommendations based on imaging criteria. Laboratory Results WBC 11.4 10^3/uL (4.0-10.0) H 03/18/22 16:10 RBC 5.11 10^6/uL (4.1-5.3) 03/18/22 16:10 Hgb 16.4 g/dL (11.5-15.3) H 03/18/22 16:10 Hct 50.2 % (37.0-47.0) H 03/18/22 16:10 MCV 98.2 fl (81-99) 03/18/22 16:10 MCH 32.1 pg (28.0-34.0) 03/18/22 16:10 MCHC 32.7 g/dL (30.0-36.0) 03/18/22 16:10 RDW 13.3 % (12.1-15.1) 03/18/22 16:10 Plt Count 272 10^3/cmm (130-400) 03/18/22 16:10 MPV 11.2 fL (7.4-10.4) H 03/18/22 16:10 Neut % (Auto) 71.4 % 03/18/22 16:10 Lymph % (Auto) 17.8 % 03/18/22 16:10 [place] % (Auto) 8.2 % 03/18/22 16:10 Eos % (Auto) 1.7 % 03/18/22 16:10 Baso % (Auto) 0.5 % 03/18/22 16:10 Neut # (Auto) 8.16 10^3/uL (1.8-7.7) H 03/18/22 16:10 Lymph # (Auto) 2.0 10^3/uL (0.8-4.8) 03/18/22 16:10 [place] # (Auto) 0.9 10^3/uL (0.2-0.9) 03/18/22 16:10 Eos # (Auto) 0.2 10^3/uL (0.0-0.8) 03/18/22 16:10 Baso # (Auto) 0.1 10^3/uL (0.0-0.1) 03/18/22 16:10 Nucleated RBC % (auto) 0 % 03/18/22 16:10 Nucleated RBCs # 0.0 /100WBC 03/18/22 16:10 Sodium 136 mmol/L (136-145) 03/18/22 16:10 Potassium 3.6 mmol/L (3.5-5.1) 03/18/22 16:10 Chloride 97 mmol/L (98-107) L 03/18/22 16:10 Carbon Dioxide 26 mmol/L (22-29) 03/18/22 16:10 Anion Gap 16.6 (5-19) 03/18/22 16:10 BUN 26 mg/dL (8-23) H 03/18/22 16:10 Creatinine 1.3 mg/dL (0.5-0.9) H 03/18/22 16:10 GFR Calculation Not Reportable 03/18/22 16:10 Glucose 120 mg/dL (65-115) H 03/18/22 16:10 Calculated Osmolality 288 mOsm/kg (285-295) 03/18/22 16:10 Lactic Acid 1.8 mmol/L (0.5-2.2) 03/18/22 16:10 Calcium 9.9 mg/dL (8.5-10.5) 03/18/22 16:10 Total Bilirubin 0.4 mg/dL (0.15-1.2) 03/18/22 16:10 AST 15 U/L (0-32) 03/18/22 16:10 ALT < 5 U/L (0-33) 03/18/22 16:10 Alkaline Phosphatase 79 U/L (35-105) 03/18/22 16:10 Total Protein 7.6 g/dL (6.6-8.7) 03/18/22 16:10 Albumin 3.4 g/dL (3.5-5.2) L 03/18/22 16:10 Globulin 4.2 g/dL (1.3-4.6) 03/18/22 16:10 Lipase 37 U/L (13-60) 03/18/22 16:10 Urine Color Dark yellow (Yellow) 03/18/22 20:25 Urine Appearance Hazy (CLEAR) A 03/18/22 20:25 Urine pH 5 (5-7) 03/18/22 20:25 Ur Specific [place] 1.010 (1.005-1.030) 03/18/22 20:25 Urine Protein 1+ (Negative) H 03/18/22 20:25 Urine Glucose (UA) Norm (Normal) 03/18/22 20:25 Urine Ketones Negative (Negative) 03/18/22 20:25 Urine Blood 2+ (Negative) H 03/18/22 20:25 Urine Nitrate Positive (Negative) H 03/18/22 20:25 Urine Bilirubin Neg (Negative) 03/18/22 20:25 Urine Urobilinogen Neg mg/dL (Negative) 03/18/22 20:25 Ur Leukocyte Esterase Trace (Negative) H 03/18/22 20:25 Urine RBC 0-4 /hpf (0-2) H 03/18/22 20:25 Urine WBC 15-25 /hpf (0-5) H 03/18/22 20:25 Ur Squamous Epith Cells 10-15 /hpf (0-5) H 03/18/22 20:25 Amorphous Sediment Not Reportable 03/18/22 20:25 Urine Bacteria 3+ /hpf (NONE) H 03/18/22 20:25 Discharge Plan Discharge Patient Disposition: Home Clinical Impression: Abdominal pain Condition: Stable Prescriptions: New ondansetron 4 mg film 4 mg PO DAILY PRN (Reason: nausea and vomiting) Qty: 10 0RF dicyclomine 10 mg capsule 10 mg PO BID PRN (Reason: abdominal pain) Qty: 20 0RF No Action hydrocodone-acetaminophen 10-325 mg tablet 1 tab PO Q6H PRN (Reason: Pain) metoprolol tartrate 100 mg tablet 100 mg PO BID lovastatin 20 mg tablet 20 mg PO BEDTIME sennosides-docusate sodium [Senna-S] 8.6-50 mg tablet 1 tab-cap PO DAILY Qty: 30 0RF Discharge Orders: Discharge ED (Routine); Ordered 03/18/22 Ordered By: Michelet Miller Referrals: Mohan Tovar MD [Primary Care Provider] - 1-3 days Discharge Diet: Advance as tolerated and Clear Liquid Discharge Activity: Increase activity as tolerated Patient Instructions: Abdominal Pain (ED), Opioid Safety Activity Restrictions/Additional Instructions: Return for fever greater than 100, continuing to vomit liquids or medications, worsening pain despite treatment, any other concerning symptoms peer Coding Level of Care Code ED Career Information Specialist for Chg Fwd Exam Comprehensive
[2022-03-18 18:29] VITALS: BP 136/90; PULSE 78; RESP 16; O2SAT 95
[2022-03-18] MEDS: sodium chloride 0.9% 1,000 ML 999 ML IV (18:44)
[2022-03-18] MEDS: ondansetron 2 mg/ML SDV 2 mL 4 MG IVP (18:44)
[2022-03-18] MEDS: morphine 4 mg/mL SDV 1 mL 2 MG IVP (18:44)
[2022-03-18] MEDS: piperacillin-tazobactam 3.375 GM in sodium chloride 0.9% (plus) 50 ML IV (18:44)
[2022-03-18] MEDS: iohexol 350 mg/mL 100 mL Btl 80 ML IV (18:58)
[2022-03-18 20:49] LABS: Add Urine Microscopic? YES; Bilirubin Urine Neg (Negative); Blood Urine 2+ (Negative); Glucose Urine UA Norm (Normal); Ketones Urine Negative (Negative); Leukocyte Esterase Urine Trace (Negative); Nitrate Urine Positive (Negative); Protein Urine 1+ (Negative); Urine Appearance Hazy (CLEAR); Urine Color Dark Yellow (Yellow); Urobilinogen Urine Neg (Negative); pH Urine 5 (5-7)
[2022-03-18 20:51] LABS: Add Urine Culture? No; Bacteria Urine 3+ /hpf; RBC Urine 0-4 /hpf (0-2); WBC Urine 15-25 /hpf (0-5)
== END 2022-03-18 22:19 | disposition home or self-care (01) ==
PROVIDERS: Emergency Medicine; Emergency Provider Emergency Medicine; PCP Family Medicine
DX: R10.9 Unspecified abdominal pain (principal); I10 Essential (primary) hypertension
CPT/HCPCS: 36415; 74177; 80053; 81001; 83605; 83690; 85025; 96365; 96375; 99285; J2270; J2405; J2543; J7030; Q9967

== ENCOUNTER 2022-06-21 07:38 | Outpatient (CLI) | payer MEDICARE, SELFPAY ==
--- NOTE | 2022-06-21 08:00 | FL_ITS ---
WS: [id number] EXAMINATION: FL upper GI smallbowel series REASON FOR EXAM: DYSPHAGIA/ANOREXIA COMPARISON: None available. ORDER DATE: 06/21/2022 8:00 AM TECHNIQUE: The patient drank a a mixture of barium and water-soluble contrast. Fluoroscopy digital spots with se rial imaging performed as the barium passed through the small bowel. Spot compression views obtained. FINDINGS: Initial abdomen radiograph: Normal bowel gas pattern. No abnormal calcification. UGI: Esophagus: The swallowing mechanism was shown to be normal at fluoroscopy. The esophagus showed rachel l configuration with slow transit time and tertiary contraction waves presbyesophagus but with intact mucosa. A small hiatal hernia. No reflux was seen. 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 Stomach: The stomach is normal size and distensibility. The gastric rugal folds are of normal caliber and there are no discrete ulcerations. Duodenum: The duodenal bulb is normal in size and shape. The duodenal sweep is unremarkable. SBFT: Barium passed through the small bowel reaching the colon on the 30 minute delayed image. Normal small bowel mucosal pattern. No evidence for bowel wall thickening. No intraluminal filling defect. Spot c ompression performed under fluoroscopy showed no rigidity of the small bowel loops. The terminal ileu m is unremarkable. FL/FL upper GI smallbowel series IMPRESSION: PRESBYESOPHAGUS WITH SMALL SLIDING HIATAL HERNIA AND EPIPHRENIC DIVERTICULUM. N O REFLUX OBSERVED. NO SMALL BOWEL STRICTURE, DILATATION, ADHESION, OR MASS. THE TERMINAL ILEUM IS NORMAL. NORMAL SMALL BOWEL FOLLOW-THROUGH BARIUM STUDY. FLUOROSCOPY TIME: 2.4 minutes # OF SPOT FILMS: 8
== END 2022-06-21 07:39 | disposition home or self-care (01) ==
LOC: RAD 07:44
PROVIDERS: PCP Family Medicine; Visit Provider Family Medicine
DX: K57.90 Diverticulosis of intestine, part unspecified, without perforation or abscess without bleeding (principal)
CPT/HCPCS: 74240; 74248

== ENCOUNTER 2022-11-10 08:35 | Inpatient (IN) | payer MEDICARE, SELFPAY ==
[2022-11-10] VITALS (17 sets, daily range): BP systolic 91–158; BP diastolic 65–93; PULSE 61–73; RESP 14–31; TEMP 36.3–37.3; O2SAT 87–98; BMI 31.4
--- NOTE | 2022-11-10 08:39 | XRR_ITS ---
PROCEDURE INFORMATION: Exam: XR Chest Exam date and time: 11/10/2022 8:46 AM Age: 87 years old Clinical indication: Cough and dyspnea; Additional info: Dyspnea/cough TECHNIQUE: Imaging protocol: Radiologic exam of the chest. Views: 1 view. Total images: 1 COMPARISON: CR XR chest 1V [id number] 04/26/2016 2:55 PM FINDINGS: Lungs: Nonspecific left lung base opacity favors atelectasis or pneumonia. Trace atelectasis or scar noted in the right lung base. Pleural spaces: Moderate left pleural effusion. Impresion. Heart/Mediastinum: Heart size is stable when compared to the prior exam. Bones/joints: Diffuse osteopenia noted. Osseous structures are unchanged from the prior exam. XR/XR chest 1V portable [id number] IMPRESSION: 1. Nonspecific left lung base opacity favors atelectasis or pneumonia. 2. Trace atelectasis or scar noted in the right lung base.
--- NOTE | 2022-11-10 08:44 | ED_ITS ---
HPI - Dizziness General: Chief Complaint: Dizziness Stated Complaint: DIZZY Time Seen by Provider: 11/10/22 08:39 Source: patient Mode of arrival: EMS History of Present Illness: HPI Narrative: 87-year-old female presents emergency room complaining dizziness. Is worse when she moves her head in a particular direction or if she tries to sit up from lying down. At home it began this morning around 230. She has been nauseous with it but is not actually vomited. Few months ago she was in a detention for period time after an episode of diverticulitis. She has noticed extreme weakness she is only able to ambulate with the use of a wheeled 3 wheeled walker. She is not able to work with her arms above shoulder level and has extreme weakness to her lower extremities. No difficulty speech swallowing or vision. She has had several falls at home according to family member she is not on any anticoagulants. She did hit her head and has a bruise in her stomach checked out since it happened. 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 According to her it is at her baseline. MD elicited complaint: dizziness and lightheadedness Onset (ago): hour(s) Timing: awoke with symptoms Severity: mild Description: room spinning Context: change in body position Exacerbating factors: nothing Relieving factors: nothing Associated symptoms: Denies change in hearing, chest pain, chills, cough, diaphoresis, ear discharge, ear pressure, fevers/chills, headache(s), malaise, nausea, nasal congestion, palpitations, rash, short of breath, syncope, tinnitus, vomiting or weakness Associated neuro symptoms: Deny confusion, difficulty speaking, dysphagia, diplopia, extremity weakness, facial numbness, facial weakness, gait changes, numbness in extremities or visual changes Review of Systems Const: Reports: fatigue; Denies: fever(s), chills, malaise or diaphoresis Eyes: Denies: change in vision ENMT: Denies: throat pain, ear discharge, change in hearing, tinnitus or nasal congestion Card: Denies: chest pain, palpitations or syncope Resp: Denies: dyspnea, productive cough or non-productive cough GI: Denies: abdominal pain, nausea, vomiting or dysphagia : Denies: flank pain, difficulty voiding, dysuria, urinary frequency or urinary urgency Musc: Denies: neck pain or back pain Skin/Breast: Denies: rash or pruritus Neuro: Denies: headache(s), numbness in extremities or confusion PFSH ED PFSH: Medical History Acute kidney injury superimposed on chronic kidney disease REAGAN (acute kidney injury) Colitis Diverticular hemorrhage Diverticulitis Gastroenteritis History of sciatica Hypertension Nausea & vomiting Sepsis Sepsis associated hypotension Thrombocytopenia Social History Substance/Drug Use: never Physical Exam Const: COMMON NORMALS: no acute distress GENERAL APPEARANCE: cooperative and comfortable ORIENTATION/CONSCIOUSNESS: Yes awake, Yes oriented to person, Yes oriented to place and Yes oriented to time HENMT: COMMON NORMALS: normocephalic, atraumatic and hearing grossly normal bilaterally HEAD & SCALP: normocephalic and atraumatic Resp: COMMON NORMALS: normal respiratory effort, No retractions, No use of accessory muscles and clear to auscultation bilaterally AUSCULTATION: clear to auscultation bilaterally Cardio: COMMON NORMALS: regular rate, regular rhythm and No murmurs present (Cardio) RATE: regular rate RHYTHM: regular rhythm GI: COMMON NORMALS: Soft to palpation and No hepatosplenomegaly present AUSCULTATION: Yes normoactive bowel sounds PALPATION: Yes Soft to palpation, No Tenderness to palpation present (GI), No Guarding due to palpation present (GI) and Yes No hepatosplenomegaly present Extremity: COMMON NORMALS: normal to inspection, capillary refill normal, no clubbing, cyanosis or edema, no calf tenderness and no pedal edema Neuro: SENSORIUM/ORIENTATION: Yes oriented to person, Yes oriented to place and Yes oriented to time Skin: COMMON NORMALS: no rashes or lesions noted GENERAL SKIN EXAM: no rashes or lesions noted Course Vital Signs: Vital signs: Vital Signs Pulse Rate 71 11/10/22 09:40 Respiratory Rate 24 H 11/10/22 09:40 Blood Pressure 158/93 11/10/22 08:37 Pulse Oximetry 97 11/10/22 09:40 Oxygen Delivery Me thod Nasal Cannula 11/10/22 08:37 Oxygen Flow Rate 2 11/10/22 08:37 MDM - Dizziness Medical Decision Making Extremely weak but no lateralizing symptoms suggestive of a stroke at this time. She does have a pneumonia and a cystitis there is no evidence of heart failure at this time. Her NIH was essentially 0 her sensation was normal and she had difficult time lifting either leg off the bed but could dorsum plantar flex with relatively adequate strength. We will admit the patient for cystitis and pneum onia with hypoxia start on ceftriaxone and Zithromax cultures done discussed with hospitalist orders written Medical Records I reviewed the patient's medical records. Lab Data I reviewed the patient's lab results. 11/10/22 08:50 11/10/22 08:50 Radiology Impressions Chest X-Ray 11/10/22 08:39 IMPRESSION: 1. Nonspecific left lung base opacity favors atelectasis or pneumonia. 2. Trace atelectasis or scar noted in the right lung base. Head CT 11/10/22 09:03 IMPRESSION: No acute intracranial pathology detected. Laboratory Results WBC 5.5 10^3/uL (4.0-10.0) 11/10/22 08:50 RBC 4.55 10^6/uL (4.1-5.3) 11/10/22 08:50 Hgb 14.1 g/dL (11.5-15.3) 11/10/22 08:50 Hct 44.5 % (37.0-47.0) 11/10/22 08:50 MCV 97.8 fl (81-99) 11/10/22 08:50 MCH 31.0 pg (28.0-34.0) 11/10/22 08:50 MCHC 31.7 g/dL (30.0-36.0) 11/10/22 08:50 RDW 17.0 % (12.1-15.1) H 11/10/22 08:50 Plt Count 173 10^3/cmm (130-400) 11/10/22 08:50 MPV 11.6 fL (7.4-10.4) H 11/10/22 08:50 Neut % (Auto) 52.8 % 11/10/22 08:50 Lymph % (Auto) 29.8 % 11/10/22 08:50 [place] % (Auto) 12.5 % 11/10/22 08:50 Eos % (Auto) 3.4 % 11/10/22 08:50 Baso % (Auto) 1.1 % 11/10/22 08:50 Neut # (Auto) 2.91 10^3/uL (1.8-7.7) 11/10/22 08:50 Lymph # (Auto) 1.6 10^3/uL (0.8-4.8) 11/10/22 08:50 [place] # (Auto) 0.7 10^3/uL (0.2-0.9) 11/10/22 08:50 Eos # (Auto) 0.2 10^3/uL (0.0-0.8) 11/10/22 08:50 Baso # (Auto) 0.1 10^3/uL (0.0-0.1) 11/10/22 08:50 Nucleated RBC % (auto) 0 % 11/10/22 08:50 Nucleated RBCs # 0.0 /100WBC 11/10/22 08:50 Sodium 142 mmol/L (136-145) 11/10/22 08:50 Potassium 4.3 mmol/L (3.5-5.1) 11/10/22 08:50 Chloride 103 mmol/L (98-107) 11/10/22 08:50 Carbon Dioxide 27 mmol/L (22-29) 11/10/22 08:50 Anion Gap 16.3 (5-19) 11/10/22 08:50 BUN 22 mg/dL (8-23) 11/10/22 08:50 Creatinine 1.2 mg/dL (0.5-0.9) H 11/10/22 08:50 GFR Calculation Not Reportable 11/10/22 08:50 Glucose 81 mg/dL (65-115) 11/10/22 08:50 POC Glucose 71 mg/dL (70-110) 11/10/22 09:42 Calculated Osmolality 296 mOsm/kg (285-295) H 11/10/22 08:50 Calcium 8.4 mg/dL (8.5-10.5) L 11/10/22 08:50 Total Bilirubin 0.9 mg/dL (0.15-1.2) 11/10/22 08:50 AST 21 U/L (0-32) 11/10/22 08:50 ALT 8 U/L (0-33) 11/10/22 08:50 Alkaline Phosphatase 98 U/L (35-105) 11/10/22 08:50 Troponin T Baseline 44 ng/L (0-10) H 11/10/22 08:50 Total Protein 5.4 g/dL (6.6-8.7) L 11/10/22 08:50 Albumin 2.8 g/dL (3.5-5.2) L 11/10/22 08:50 Globulin 2.6 g/dL (1.3-4.6) 11/10/22 08:50 Urine Color Yellow (Yellow) 11/10/22 09:08 Urine Appearance Cloudy (CLEAR) A 11/10/22 09:08 Urine pH 6 (5-7) 11/10/22 09:08 Ur Specific [place] 1.020 (1.005-1.030) 11/10/22 09:08 Urine Protein 3+ (Negative) H 11/10/22 09:08 Urine Glucose (UA) Norm (Normal) 11/10/22 09:08 Urine Ketones Negative (Negative) 11/10/22 09:08 Urine Blood 3+ (Negative) H 11/10/22 09:08 Urine Nitrate Positive (Negative) H 11/10/22 09:08 Urine Bilirubin Neg (Negative) 11/10/22 09:08 Urine Urobilinogen Norm mg/dL (Negative) 11/10/22 09:08 Ur Leukocyte Esterase 2+ (Negative) H 11/10/22 09:08 Urine RBC 5-10 /hpf (0-2) H 11/10/22 09:08 Urine WBC >100 /hpf (0-5) H 11/10/22 09:08 Ur Squamous Epith Cells 0-4 /hpf (0-5) H 11/10/22 09:08 Amorphous Sediment Not Reportable 11/10/22 09:08 Urine Bacteria 2+ /hpf (NONE) H 11/10/22 09:08 Discharge Plan Discharge Patient Disposition: Admitted As Inpatient Admit Provider: Mauri Collazo Clinical Impression: Pneumonia, Cystitis, Generalized weakness Condition: Stable Coding Level of Care Code ED Electrophysiology Nurse Practitioner for Myrtle Freeman NIH stroke score NIHSS Level Of Consciousness - 1a: 0 Level Of Consciousness Questions - 1b: Both Correct Level Of Consciousness Commands - 1c: Both Correct Best Gaze - 2: Normal Visual Saini - 3: No Visual Loss Facial Palsy - 4: Normal Motor Arm Right - 5: No Drift Motor Arm Left - 5: No Drift Motor Leg Right - 6: No Drift Motor Leg Left - 6: No Drift Limb Ataxia - 7: Absent Sensory - 8: Normal Best Language - 9: No Aphasia Dysarthia - 10: Normal Extinction And Inattention - 11: 0 Score Total Score: 0
--- NOTE | 2022-11-10 08:45 | ECG_ITS ---
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 Measurements Intervals [place] Rate: 62 P: 17 [place]: 172 QRS: 75 QRSD: 103 T: 54 QT: 457 QTc: 464 Interpretive Statements SINUS RHYTHM Compared to ECG 04/26/2016 14:42:57 No significant changes Electronically Signed On 11-10-2022 16:39:06 CDT by Sandro Olmedo M.D. [email or web address] Group Limitedsouth central regional medical centerOcean Power Technologiessumma health wadsworth - rittman medical centerCultureIQ/store/OM/[id number]
--- NOTE | 2022-11-10 09:03 | CTR_ITS ---
PROCEDURE INFORMATION: Exam: CT Head Without Contrast Exam date and time: 11/10/2022 9:12 AM Age: 87 years old Clinical indication: Injury or trauma; Fall; Blunt trauma (contusions or hematomas); Additional info: Fall/closed head injury TECHNIQUE: Imaging protocol: Computed tomography of the head without contrast. Total images: 0 Radiation optimization: All CT scans at this facility use at least one of these dose optimization techniques: automated exposure control; mA and/or kV adjustment per patient size (includes targeted exams where dose is matched to clinical indication); or iterative reconstruction. REPORTING DATA: Count of CT and Cardiac NM exams in prior 12 months: This patient has received 3 known CTs and 0 known cardiac nuclear medicine studies in the 12 months prior to the current study. COMPARISON: CT head wo con* [id number] 04/26/2016 2:30 PM RADIATION DOSE METRICS: Total DLP (mGy-cm): 1086.68 FINDINGS: Brain: Global brain atrophy and chronic white matter ischemic changes are present. Areas of encephalomalacia in the right cerebellar hemisphere suggesting remote infarct. Cerebral ventricles: Ventricles are appropriate in size for degree of atrophy. Paranasal sinuses: Visualized sinuses are unremarkable. No fluid levels. Mastoid air cells: Visualized mastoid air cells are well aerated. Orbital cavities: Prior bilateral lens replacements noted. Bones/joints: Unremarkable. No acute fracture. Soft tissues: Unremarkable. CT/CT head wo con* [id number] IMPRESSION: No acute intracranial pathology detected.
[2022-11-10 09:16] LABS: Basophils # 0.1 10^3/uL (0.0-0.1); Basophils % 1.1 %; Eosinophils # 0.2 10^3/uL (0.0-0.8); Eosinophils % 3.4 %; Hematocrit 44.5 % (37.0-47.0); Hemoglobin 14.1 g/dL (11.5-15.3); Lymphocytes # 1.6 10^3/uL (0.8-4.8); Lymphocytes % 29.8 %; Mean Corpuscular HGB Conc 31.7 g/dL (30.0-36.0); Mean Corpuscular Volume 97.8 fl (81-99); Mean Platelet Volume 11.6 fL (7.4-10.4); Monocytes # 0.7 10^3/uL (0.2-0.9); Monocytes % 12.5 %; Neutrophils # 2.91 10^3/uL (1.8-7.7); Neutrophils % 52.8 %; Nucleated Red Blood Cells % 0 %; Platelet Count 173 10^3/cmm (130-400); Red Blood Count 4.55 10^6/uL (4.1-5.3); White Blood Count 5.5 10^3/uL (4.0-10.0)
[2022-11-10 09:20] LABS: Add Urine Culture? Yes; Bacteria Urine 2+ /hpf; Bilirubin Urine Neg (Negative); Blood Urine 3+ (Negative); Glucose Urine UA Norm (Normal); Ketones Urine Negative (Negative); Leukocyte Esterase Urine 2+ (Negative); Nitrate Urine Positive (Negative); Protein Urine 3+ (Negative); Squamous Epithelial Cell Urine 0-4 /hpf (0-5); Urine Appearance Cloudy (CLEAR); Urine Color Yellow (Yellow); Urobilinogen Urine Norm (Negative); WBC Urine >100 /hpf (0-5); pH Urine 6 (5-7)
[2022-11-10 09:21] LABS: Add Urine Microscopic? YES
[2022-11-10 09:35] LABS: Troponin(5th) Baseline 44 ng/L (0-10)
[2022-11-10 09:38] LABS: Alanine Aminotransferase 8 U/L (0-33); Albumin Level 2.8 g/dL (3.5-5.2); Alkaline Phosphatase 98 U/L (35-105); Aspartate Amino Transferase 21 U/L (0-32); Blood Urea Nitrogen 22 mg/dL (8-23); Calcium 8.4 mg/dL (8.5-10.5); Carbon Dioxide 27 mmol/L (22-29); Chloride 103 mmol/L (98-107); Globulin 2.6 g/dL (1.3-4.6); Glucose 81 mg/dL (65-115); Osmolality Calculated 296 mOsm/kg (285-295); Sodium 142 mmol/L (136-145); Total Bilirubin 0.9 mg/dL (0.15-1.2); Total Protein 5.4 g/dL (6.6-8.7)
[2022-11-10 09:39] LABS: Creatinine Clr Calc Pharmacy 31.4151
[2022-11-10 09:40] LABS: Anion Gap 16.3 (5-19); Potassium 4.3 mmol/L (3.5-5.1)
[2022-11-10 09:46] LABS: Glucose Point of Care 71 mg/dL (70-110)
--- NOTE | 2022-11-10 10:37 | PC.NURSE ---
Received pt report at 0910 from Zohra Alvarez RN. Family in room with pt; pt has monitors on.
[2022-11-10] MEDS: cefTRIAXone 1,000 MG in sodium chloride 0.9% (plus) 50 ML 100 MG IV (10:42)
--- NOTE | 2022-11-10 10:47 | ECG_ITS ---
[facility] Test Date: 2022-11-10 Pat Name: Ketty Quijano Department: Room: 264 Gender: Female Designer Writer: : 1935 Requested By: Sonido Sharma Order Number: [id number] Carmen MD: Sandro Olmedo M.D. Measurements Intervals [place] Rate: 61 P: 46 [place]: 174 QRS: 80 QRSD: 103 T: 52 QT: 478 QTc: 483 Interpretive Statements SINUS RHYTHM WITH SINUS ARRHYTHMIA MODERATE ST DEPRESSION [0.05+ mV ST DEPRESSION] PROLONGED QT INTERVAL Compared to ECG 11/10/2022 08:45:20 ST (T wave) deviation now present Prolonged QT interval now present Electronically Signed On 11-10-2022 17:02:06 CDT by Sandro Olmedo M.D. [email or web address] Thatwiser hospital for women and infantsBoxstar Mediagood [facility].Streamfile/store/OM/[id number]
--- NOTE | 2022-11-10 10:52 | PM.HP ---
Providers/Chief Complaint Admitting Physician: Mauri Collazo MD Primary Care Provider: Mohan Tovar MD Chief Complaint: DIZZY History of Present Illness Ketty Quijano is a 87 year old female with past medical history HTN, CVA, with some left-sided weakness, came in today with chief complaint of Dizziness, particularly when see moves her head [id number], or even minutes he trY to sit from lying down position, this started about 6 months back and since then it has progressively worsened, still complaining of Nausea but no vomiting. She is possibly complaining of limb claudication, though the dizziness can be related to Vertebrobasilar syndrome, subclavian artery steal syndrome can also be a consideration.In the last few days she has also been complaining of increasing generalized weakness, and has experienced,Several falls lately at home. CT head without contrast no acute intracranial pathology CT neck with contrast has shown: Occlusion of the proximal right vertebral artery,High-grade stenosis with near occlusion of the right subclavian artery at the thoracic inlet.?50% stenosis of the left subclavian artery at the thoracic inle,Large left and small right simple pleural effusions. X-ray chest: Moderate to large left-sided pleural effusion, left lungs base compressive atelectasis. Pertinent labs: WBC: 5.5 , H&H:14/44 , PLT : 173 , serum sodium 142, serum potassium 4.3, BUN 22, serum creatinine 1.2, Troponin trend: EKG: Sinus rhythm with sinus arrhythmia. Review of Systems General: Reports: 10 or more systems reviewed and unremarkable except in HPI and below Const: Denies: fever(s), chills, body aches, change in appetite or diaphoresis Card: Denies: palpitations, edema, swelling of feet/ankles, dyspnea on exertion, orthopnea or leg pain with exertion Resp: Denies: dyspnea, productive cough, wheezing or pain on inspiration GI: Denies: abdominal pain, nausea, vomiting, diarrhea or constipation : Denies: flank pain Musc: Denies: back pain, extremity pain or extremity swelling Neuro: Reports: difficulty walking; Denies: headache(s) or confusion Medications/Allergies Home Medications Medication Instructions Recorded Confirmed Last Taken Type hydrocodone 10 mg-acetaminophen 1 tab PO Q6H PRN Pain 02/13/22 11/10/22 2 Days Ago History 325 mg tablet ~03/06/22 lovastatin 20 mg tablet 20 mg PO BEDTIME 02/13/22 11/10/22 11/09/22 History metoprolol tartrate 100 mg tablet 100 mg PO BID 02/13/22 11/10/22 11/09/22 History dicyclomine 10 mg capsule 10 mg PO BID PRN abdominal pain 03/18/22 11/10/22 Unknown Rx #20 caps escitalopram oxalate 10 mg tablet 10 mg PO DAILY 11/10/22 11/10/22 Unknown History Allergies Allergy/AdvReac Type Severity Reaction Status Date / Time milk Allergy Unknown Verified 02/14/22 00:29 PFSH Acute PFSH: Medical History (Updated 11/10/22 @ 17:11 by Mauri Collazo MD) Acute kidney injury superimposed on chronic kidney disease REAGAN (acute kidney injury) Colitis Diverticular hemorrhage Diverticulitis Gastroenteritis History of sciatica Hypertension Nausea & vomiting Sepsis Sepsis associated hypotension Thrombocytopenia Social History Substance/Drug Use: never Vitals/I&O/Wt Last Vital Signs Pulse 65 11/10/22 10:30 Resp 19 H 11/10/22 10:30 BP 158/93 11/10/22 08:37 Pulse Ox 98 11/10/22 10:30 O2 Del Method Nasal Cannula 11/10/22 08:37 O2 Flow Rate 2 11/10/22 08:37 Weight last 48 hrs Weight 78.925 kg Physical Exam Const: COMMON NORMALS: patient oriented x3 HENMT: COMMON NORMALS: normocephalic and atraumatic Resp: COMMON NORMALS: clear to auscultation bilaterally EFFORT & INSPECTION: Yes symmetric chest movement AUSCULTATION: clear to auscultation bilaterally OTHER: Diminished air entry on the left side of the lung Cardio: COMMON NORMALS: regular rate, regular rhythm, S1 normal heart sound present, S2 normal heart sound present, No gallops present (Cardio), No murmurs present (Cardio), No rub (Cardio) and Peripheral pulses 2+ throughout RATE: regular rate RHYTHM: regular rhythm HEART SOUNDS: S1 normal heart sound present and S2 normal heart sound present PERIPHERAL PULSES: Peripheral pulses 2+ throughout GI: COMMON NORMALS: Normal to inspection, nondistended, normoactive bowel sounds present, Soft to palpation, non-tender, No hepatosplenomegaly present and no masses AUSCULTATION: Yes normoactive bowel sounds PALPATION: Yes Soft to palpation and Yes No hepatosplenomegaly present RECTAL EXAM: deferred Extremity: COMMON NORMALS: no clubbing, cyanosis or edema and no pedal edema Neuro: COMMON NORMALS: patient oriented x3 Data 11/10/22 08:50 11/10/22 08:50 Micro: Microbiology 11/10/22 09:44 Blood Culture - Preliminary Blood SPECIMEN COLLECTED A&P Assessment and plan (1) Generalized weakness: (2) Hypertension: (3) UTI (urinary tract infection): (4) CKD (chronic kidney disease) stage 3, GFR 30-59 ml/min: (5) Pleural effusion: (6) Vertebral artery stenosis: (7) Subclavian artery stenosis: (8) Pneumonia: Plan 87 year old female with past medical history HTN, CVA, with some left-sided weakness, came in today with chief complaint of Dizziness, particularly when see moves her head [id number], or even minutes he trY to sit from lying down position, this started about 6 months back and since then it has progressively worsened, still complaining of Nausea but no vomiting. She is possibly complaining of limb claudication, though the dizziness can be related to Vertebrobasilar syndrome, subclavian artery steal syndrome can also be a consideration.In the last few days she has also been complaining of increasing generalized weakness, and has experienced,Several falls lately at home. Dizziness: Possibly related to, vertebrobasilar insufficiency, subclavian steal syndrome. CT head without contrast no acute intracranial pathology CT neck with contrast has shown: Occlusion of the proximal right vertebral artery,High-grade stenosis with near occlusion of the right subclavian artery at the thoracic inlet.?50% stenosis of the left subclavian artery at the thoracic inle,Large left and small right simple pleural effusions. Given her age, it would be prudent to see if it can be managed conservatively. Consider cardiology consult, neurology consult, cardiothoracic consult. Fall precaution PT OT on board Orthostatic vital sign check Large left-sided pleural effusion: Rule out parapneumonic effusion Possible thoracentesis on Saturday Pleural fluid analysis Possible pneumonia: Follow blood culture Sputum Gram stain culture Currently she is on Zosyn UTI: Follow urine culture Zosyn will be a good choice for UTI Likely CKD stage III: Admission serum creatinine 1.2 Baseline serum creatinine unknown Continue gentle IV hydration with normal saline 50 cc an hour Monitor BMP Monitor intake output charting Avoid nephrotoxic History of CVA: No acute intervention at this point CODE STATUS: Full code DVT prophylaxis Lovenox Attestations Medical Necessity Statement*: Patient is to be in hospital management of UTI and pneumonia. Need for IV antibiotic anticipated length of stay greater than 2 midnights. Coding Level of Care Code 87618 Diagnoses Generalized weakness R53.1 Hypertension I10 UTI (urinary tract infection) N39.0 CKD (chronic kidney disease) stage 3, GFR 30-59 ml/min N18.30 Pleural effusion J90 Vertebral artery stenosis I65.09 Subclavian artery stenosis I77.1 Pneumonia J18.9
--- NOTE | 2022-11-10 11:20 | CTR_ITS ---
PROCEDURE INFORMATION: Exam: CT Neck With Contrast Exam date and time: 11/10/2022 2:10 PM Age: 87 years old Clinical indication: Other: Dizziness TECHNIQUE: Imaging protocol: Computed tomography of the neck with contrast. Radiation optimization: All CT scans at this facility use at least one of these dose optimization techniques: automated exposure control; mA and/or kV adjustment per patient size (includes targeted exams where dose is matched to clinical indication); or iterative reconstruction. Contrast material: OMNI 350; Contrast volume: 75 ml; Contrast route: INTRAVENOUS (IV); REPORTING DATA: Count of CT and Cardiac NM exams in prior 12 months: This patient has received 3 known CTs and 0 known cardiac nuclear medicine studies in the 12 months prior to the current study. COMPARISON: CT head wo con* [id number] 11/10/2022 9:12 AM RADIATION DOSE METRICS: Total DLP (mGy-cm): 248.91 FINDINGS: Brain: Chronic encephalomalacia in the right cerebellar hemisphere. Orbital cavities: The orbits are unremarkable. Mastoid air cells: The mastoid air cells are clear. Paranasal sinuses: The paranasal sinuses are clear. Pharynx: The nasopharynx is unremarkable. There is no significant pharyngeal tonsillar enlargement. The oropharynx is unremarkable. There is no significant palatine tonsillar enlargement. The hypopharynx is unremarkable. There is no significant lingual tonsillar enlargement. Larynx: The larynx and epiglottis are normal. Prevertebral and retropharyngeal spaces: There is no fluid or edema in the retropharyngeal space. Salivary glands: The submandibular glands are normal. The parotid glands are normal. Thyroid: The thyroid gland is unremarkable. Lymph nodes: There are multiple prominent upper mediastinal lymph nodes. There is no cervical or supraclavicular lymphadenopathy. Trachea: The visible portion of the trachea is normal. Lungs: There is dependent opacity in the left upper lobe. Pleural spaces: Large left and small right simple pleural effusions. Bones/joints: There is [id number] multilevel cervical spinal stenosis. There is moderate degenerative disc disease in the cervical spine. There is mild multilevel facet spondylosis. Vasculature: There is moderate calcific plaque at the carotid bulb bilaterally. There is less than 50% stenosis of the proximal internal carotid artery bilaterally. 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 Proximal right vertebral artery contains no contrast. The vessel is intermittently contrast opacified distally. The left vertebral artery is patent. There is high-grade stenosis with near occlusion of the right subclavian artery at the thoracic inlet. There is less than 50% stenosis of the left subclavian artery at the thoracic inlet. There is moderate calcific plaque in the cavernous portions of the internal carotid arteries bilaterally. Soft tissues: No edema. CT/CT neck w con* [id number] IMPRESSION: 1. Occlusion of the proximal right vertebral artery. Acuity is indeterminate. 2. Large left and small right simple pleural effusions. 3. High-grade stenosis with near occlusion of the right subclavian artery at the thoracic inlet. Less than 50% stenosis of the left subclavian artery at the thoracic inlet. 4. Dependent opacity in the left upper lobe. Probable atelectasis. Infection not excluded. 5. High-grade stenosis with near occlusion of the right subclavian artery at the level of the thoracic inlet. 6. Chronic infarction in the right cerebellar hemisphere. 7. Incidental findings above.
[2022-11-10 12:11] LABS: Troponin 5 2HR 31.53 ng/L (0-10)
--- NOTE | 2022-11-10 13:57 | ECG_ITS ---
[facility] Test Date: 2022-11-10 Pat Name: Ketty Quijano Department: Room: 263 Gender: Female [employer]: : 1935 Requested By: Sonido Sharma Order Number: [id number] Carmen MD: Sandro Olmedo M.D. Measurements Intervals [place] Rate: 67 P: 46 W[place]: 181 QRS: 89 QRSD: 96 T: 42 QT: 451 QTc: 476 Interpretive Statements SINUS RHYTHM WITH SINUS ARRHYTHMIA LOW QRS VOLTAGE IN PRECORDIAL LEADS [QRS DEFLECTION < 1.0 mV IN CHEST LEADS] Compared to ECG 11/10/2022 10:47:28 Low QRS voltage now present ST (T wave) deviation no longer present Prolonged QT interval no longer present Electronically Signed On 11-10-2022 17:02:34 CDT by Sandro Olmedo M.D. [id number]
[2022-11-10] MEDS: iohexol 350 mg/mL 500 mL Btl (per mL) IV (14:22)
[2022-11-10] MEDS: sodium chloride 0.9% 1,000 ML 50 ML IV (15:14)
[2022-11-10] MEDS: azithromycin 500 MG in sodium chloride 0.9% 250 ML 250 MG IV (15:16)
[2022-11-10 15:30] LABS: Troponin 5 6HR 31.38 ng/L (0-10)
[2022-11-10] MEDS: piperacillin-tazobactam 3.375 GM in sodium chloride 0.9% (plus) 50 ML IV ×2 (15:34→21:05)
[2022-11-10] MEDS: meclizine 25 mg tablet PO (15:34)
[2022-11-10] MEDS: ondansetron 2 mg/ML SDV 2 mL 4 MG IVP (15:56)
[2022-11-10] MEDS: enoxaparin 40 mg/0.4 mL Syringe SUBCUT (16:01)
[2022-11-10] MEDS: atorvastatin 40 mg Tablet 20 MG PO (20:36)
[2022-11-11] VITALS (10 sets, daily range): BP systolic 125–194; BP diastolic 68–95; PULSE 43–85; RESP 17–20; TEMP 36.4–36.9; O2SAT 87–97
[2022-11-11] MEDS: sodium chloride 0.9% 1,000 ML 50 ML IV (05:32)
[2022-11-11] MEDS: piperacillin-tazobactam 3.375 GM in sodium chloride 0.9% (plus) 50 ML IV ×3 (05:33→21:56)
[2022-11-11 06:07] LABS: Basophils # 0.1 10^3/uL (0.0-0.1); Basophils % 1.2 %; Eosinophils # 0.2 10^3/uL (0.0-0.8); Eosinophils % 4.4 %; Hematocrit 43.4 % (37.0-47.0); Hemoglobin 13.7 g/dL (11.5-15.3); Lymphocytes # 1.9 10^3/uL (0.8-4.8); Lymphocytes % 36.8 %; Mean Corpuscular HGB Conc 31.6 g/dL (30.0-36.0); Mean Corpuscular Hemoglobin 31.4 pg (28.0-34.0); Mean Corpuscular Volume 99.3 fl (81-99); Mean Platelet Volume 11.3 fL (7.4-10.4); Monocytes # 0.7 10^3/uL (0.2-0.9); Monocytes % 14.3 %; Neutrophils # 2.16 10^3/uL (1.8-7.7); Neutrophils % 42.9 %; Nucleated Red Blood Cells % 0 %; Platelet Count 166 10^3/cmm (130-400); Red Blood Count 4.37 10^6/uL (4.1-5.3); Red Cell Distribution Width 17.2 % (12.1-15.1)
[2022-11-11 06:22] LABS: Alanine Aminotransferase 8 U/L (0-33); Albumin Level 2.5 g/dL (3.5-5.2); Alkaline Phosphatase 87 U/L (35-105); Anion Gap 13.1 (5-19); Aspartate Amino Transferase 20 U/L (0-32); Blood Urea Nitrogen 18 mg/dL (8-23); Calcium 8.2 mg/dL (8.5-10.5); Carbon Dioxide 27 mmol/L (22-29); Chloride 102 mmol/L (98-107); Globulin 2.9 g/dL (1.3-4.6); Glucose 80 mg/dL (65-115); Magnesium 1.5 mg/dL (1.7-2.3); Osmolality Calculated 289 mOsm/kg (285-295); Potassium 3.1 mmol/L (3.5-5.1); Sodium 139 mmol/L (136-145); Total Bilirubin 0.8 mg/dL (0.15-1.2); Total Protein 5.4 g/dL (6.6-8.7)
[2022-11-11] MEDS: escitalopram 10 mg Tablet PO (09:13)
[2022-11-11] MEDS: enoxaparin 40 mg/0.4 mL Syringe SUBCUT (10:45)
[2022-11-11] MEDS: potassium chloride ER 20 mEq Tablet 40 MEQ PO (10:45)
--- NOTE | 2022-11-11 17:06 | P.PN_ITS ---
Subjective Subjective: Patient was seen and examined this morning, dizziness is improving. Working with physical therapy. Medications: Medication Review Details: Generic Name Dose Route Start Last Admin Trade Name Freq PRN Reason Stop Dose Admin Atorvastatin Calci um 20 mg 11/10/22 21:00 11/10/22 20:36 Atorvastatin 40 Mg Tablet PO 20 mg BEDTIME DIONY Administration Enoxaparin Sodium 40 mg 11/10/22 10:45 11/11/22 10:45 Enoxaparin 40 Mg /0.4 Ml Syringe SUBCUT 40 mg Q24H DIONY Administration Escitalopram Oxala te 10 mg 11/11/22 09:00 11/11/22 09:13 Escitalopram 10 Mg Tablet PO 10 mg DAILY DIONY Administration Piperacillin Sod/T azobactam 50 mls @ 12.5 mls /hr 11/10/22 11:00 11/11/22 15:02 Sod 3.375 gm/ So dium Chloride IV 12.5 mls/hr Q8H DIONY Administration Protocol Ondansetron HCl 4 mg 11/10/22 12:03 11/10/22 15:56 Ondansetron 2 Mg /Ml Sdv 2 Ml IVP 4 mg Q6H PRN Administration NAUSEA AND VOMITI NG Vitals/I&O/Wt Last Vital Signs Temp 97.5 F L 11/11/22 12:00 Pulse 68 11/11/22 12:00 Resp 17 11/11/22 12:00 BP 169/79 11/11/22 12:00 Pulse Ox 90 11/11/22 12:00 O2 Del Method Room Air 11/11/22 12:00 O2 Flow Rate 2 11/11/22 08:00 11/11/22 11/11/22 11/11/22 06:59 14:59 22:59 Intake Total 765 / 1715 921.167 / 921.167 Balance 765 / 1715 921.167 / 921.167 Weight last 48 hrs Weight 75.495 kg Weight 78.925 kg Physical Exam Const: COMMON NORMALS: patient oriented x3 HENMT: COMMON NORMALS: normocephalic and atraumatic HEAD & SCALP: normocephalic and atraumatic Resp: COMMON NORMALS: clear to auscultation bilaterally EFFORT & I NSPECTION: Yes symmetric chest movement AUSCULTATION: clear to auscultation bilaterally OTHER: Diminished air entry on the left side of the lung Cardio: COMMON NORMALS: regular rate, regular rhythm, S1 normal heart sound present, S2 normal heart sound present, No gallops present (Cardio), No murmurs present (Cardio), No rub (Cardio) and Peripheral pulses 2+ throughout RATE: regular rate RHYTHM: regular rhythm HEART SOUNDS: S1 normal heart sound present and S2 normal heart sound present PERIPHERAL PULSES: Peripheral pulses 2+ throughout GI: COMMON NORMALS: Normal to inspection, nondistended, normoactive bowel sounds present, Soft to palpation, non-tender, No hepatosplenomegaly present and no masses AUSCULTATION: Yes normoactive bowel sounds PALPATION: Yes Soft to palpation and Yes No hepatosplenomegaly present RECTAL EXAM: deferred : COMMON NORMALS: Yes no CVA tenderness BLADDER/KIDNEY EXAM: Yes no CVA tenderness Back/Pelvis: COMMON NORMALS: no CVA tenderness Extremity: COMMON NORMALS: no clubbing, cyanosis or edema and no pedal edema Neuro: COMMON NORMALS: patient oriented x3 Data 11/11/22 04:45 11/11/22 04:45 Micro: Microbiology 11/10/22 11:42 Blood Culture - Preliminary Blood NEGATIVE TO DATE 11/10/22 09:44 Blood Culture - Preliminary Blood NEGATIVE TO DATE 11/10/22 09:08 Urine Culture - Preliminary Urine,Clean Catch Gram Negative Rods A&P Assessment and plan (1) Generalized weakness: (2) Hypertension: (3) UTI (urinary tract infection): (4) CKD (chronic kidney disease) stage 3, GFR 30-59 ml/min: (5) Pleural effusion: (6) Vertebral artery stenosis: (7) Subclavian artery stenosis: (8) Pneumonia: Plan 87 year old female with past medical history HTN, CVA, with some left-sided weakness, came in today with chief complaint of Dizziness, particularly when see moves her head [id number], or even minutes he trY to sit from lying down position, this started about 6 months back and since then it has progressively worsened, still complaining of Nausea but no vomiting. She is possibly complaining of limb claudication, though the dizziness can be related to Vertebrobasilar syndrome, subclavian artery steal syndrome can also be a consideration.In the last few days she has also been complaining of increasing generalized weakness, and has experienced,Several falls lately at home. Dizziness: Possibly related to, vertebrobasilar insufficiency, subclavian steal syndrome.Possible BPPV. CT head without contrast no acute intracranial pathology CT neck with contrast has shown: Occlusion of the proximal right vertebral artery,High-grade stenosis with near occlusion of the right subclavian artery at the thoracic inlet.?50% stenosis of the left subclavian artery at the thoracic inle,Large left and small right simple pleural effusions. Follow MRI head without contrast to rule out central vertigo. Given her age, it would be prudent to see if it can be managed conservatively. Consider cardiology consult, neurology consult, cardiothoracic consult. Fall precaution PT OT on board Orthostatic vital sign check Large left-sided pleural effusion: Rule out parapneumonic effusion Possible thoracentesis on Saturday Pleural fluid analysis Possible pneumonia: Follow blood culture Sputum Gram stain culture Currently she is on Zosyn UTI: Follow urine culture Zosyn will be a good choice for UTI Likely CKD stage III: Admission serum creatinine 1.2 Baseline serum creatinine unknown Continue gentle IV hydration with normal saline 50 cc an hour Monitor BMP Monitor intake output charting Avoid nephrotoxic History of CVA: No acute intervention at this point CODE STATUS: Full code DVT prophylaxis Lovenox Attestations Medical Necessity Statement*: Needs to be in hospital for IV antibiotics. Coding Level of Care Code Acute Code for Chg Fwd Diagnoses Generalized weakness R53.1 Hypertension I10 UTI (urinary tract infection) N39.0 CKD (chronic kidney disease) stage 3, GFR 30-59 ml/min N18.30 Pleural effusion J90 Vertebral artery stenosis I65.09 Subclavian artery stenosis I77.1 Pneumonia J18.9
[2022-11-11] MEDS: atorvastatin 40 mg Tablet 20 MG PO (20:21)
[2022-11-12] VITALS (10 sets, daily range): BP systolic 96–198; BP diastolic 62–123; PULSE 60–99; RESP 16–19; TEMP 36.4–36.8; O2SAT 91–99
[2022-11-12 04:36] LABS: Basophils # 0.1 10^3/uL (0.0-0.1); Basophils % 1.1 %; Eosinophils # 0.4 10^3/uL (0.0-0.8); Eosinophils % 7.1 %; Hematocrit 41.6 % (37.0-47.0); Hemoglobin 13.4 g/dL (11.5-15.3); Lymphocytes # 1.7 10^3/uL (0.8-4.8); Lymphocytes % 31.6 %; Mean Corpuscular HGB Conc 32.2 g/dL (30.0-36.0); Mean Corpuscular Hemoglobin 32.1 pg (28.0-34.0); Mean Corpuscular Volume 99.8 fl (81-99); Mean Platelet Volume 11.3 fL (7.4-10.4); Monocytes # 0.7 10^3/uL (0.2-0.9); Monocytes % 12.4 %; Neutrophils % 47.4 %; Nucleated Red Blood Cells % 0 %; Platelet Count 157 10^3/cmm (130-400); Red Blood Count 4.17 10^6/uL (4.1-5.3); Red Cell Distribution Width 17.4 % (12.1-15.1); White Blood Count 5.5 10^3/uL (4.0-10.0)
[2022-11-12 04:38] LABS: INR 1.13 (0.8-1.2)
[2022-11-12 04:47] LABS: Alanine Aminotransferase 7 U/L (0-33); Albumin Level 2.4 g/dL (3.5-5.2); Alkaline Phosphatase 77 U/L (35-105); Anion Gap 10.6 (5-19); Aspartate Amino Transferase 18 U/L (0-32); Blood Urea Nitrogen 16 mg/dL (8-23); Calcium 8.1 mg/dL (8.5-10.5); Carbon Dioxide 27 mmol/L (22-29); Chloride 105 mmol/L (98-107); Globulin 2.7 g/dL (1.3-4.6); Glucose 77 mg/dL (65-115); Osmolality Calculated 288 mOsm/kg (285-295); Potassium 3.6 mmol/L (3.5-5.1); Sodium 139 mmol/L (136-145); Total Bilirubin 0.8 mg/dL (0.15-1.2); Total Protein 5.1 g/dL (6.6-8.7)
[2022-11-12] MEDS: piperacillin-tazobactam 3.375 GM in sodium chloride 0.9% (plus) 50 ML IV ×2 (05:22→14:14)
--- NOTE | 2022-11-12 05:43 | PC.NURSE ---
Dr. Koo notified of current ortho BP's
[2022-11-12] MEDS: amlodipine 5 mg Tablet PO (05:50)
[2022-11-12] MEDS: escitalopram 10 mg Tablet PO (08:45)
--- NOTE | 2022-11-12 09:30 | MR_ITS ---
WS: [id number] MRI HEAD WITHOUT CONTRAST TECHNIQUE: Sagittal T1, T2 axial, T2 axial FLAIR, axial and coronal T1 images, axial susceptibility w eighted imaging, axial diffusion weighted images, and coronal T2 images were obtained. CLINICAL INFORMATION: Central Vertigo COMPARISON: CT head November 10, 2022 FINDINGS: No evidence of restricted diffusion to suggest acute ischemia. Ventricular system and basal cisterns are patent. Moderate small vessel changes. Chronic infarct in the RIGHT cerebellum with encephalomala julio and gliosis. Chronic lacunar infarcts RIGHT and LEFT cerebellum. Normal vascular flow voids at th e skull base. No extra-axial fluid collections. No evidence of mass or mass effect. Paranasal sinuses are well aerated. No hemosiderin on susceptibly weighted images. Normal optic chias m and pituitary infundibulum. Mild symmetric atrophy temporal lobes and hippocampal formations. Mild mucosal thickening in the mastoid air cells. Normal posterior nasopharynx. MR/MR head wo con* [id number] IMPRESSION: 1. No evidence of restricted diffusion to suggest acute ischemia. 2. Moderate small vessel changes with moderate parenchymal volume loss. 3. Chronic infarct RIGHT cerebellum with encephalomalacia and gliosis. 4. Small chronic lacunar infarcts in the bilateral cerebellum. 5. No hemosiderin on susceptibly weighted images. 6. Mild mucosal thickening in the mastoid air cells. 7. Moderate symmetric atrophy temporal lobes and hippocampal formations.
--- NOTE | 2022-11-12 10:30 | US_ITS ---
WS: [email or web address] ULTRASOUND-GUIDED THORACENTESIS CLINICAL INFORMATION: Large left pleural effusion COMPARISON: None. PROCEDURE: Informed consent: The risks, benefits, and alternatives of the procedure were discussed with the raven ent. Verbal and written consent was obtained. Timeout: A timeout was performed to confirm the correct patient, procedure, and site. Site: LEFT chest Preparation: A suitable skin site was identified. The patient was prepped and draped in usual sterile fashion. Lidocaine 1% was used for local anesthesia. Catheter: 4 Polish One-Step catheter. Fluid Volume: 1000 ml Color: Clear yellow 50 cc Sent to the laboratory for further analysis. Complications: None. / thoracentesis [id number] IMPRESSION: Uncomplicated ultrasound-guided LEFT thoracentesis with removal of 1000 cc pleu ral fluid.
--- NOTE | 2022-11-12 11:07 | XR_ITS ---
WS: [id number] CHEST XRAY TECHNIQUE: Portable chest. CLINICAL INFORMATION: s/p thoracentesis COMPARISON: November 10, 2022 FINDINGS: Heart: Cardiomegaly. Lungs: Decreased in size of the LEFT pleural effusion post thoracentesis. Tiny amount of residual ple ural fluid. Subsegmental atelectasis LEFT midlung and LEFT lower lobe. No pneumothorax. Bones: Normal visualized bony structures. XR/XR chest 1V portable [id number] IMPRESSION: Improved LEFT pleural effusion post thoracentesis. No pneumothorax.
[2022-11-12] MEDS: acetaminophen 325 mg Tablet 650 MG PO (11:29)
--- NOTE | 2022-11-12 12:13 | USCV_ITS ---
Samm Ketty Age: 87 Gender: F : 1935 Exam Date: 11/12/2022 12:59 Ordering Phys: Red Cortez MD Technologist: CT Exam Location: [facility] [place] Indication: sob BP: 150 / 75 HR: 84 Rhythm: Sinus Technical Quality: Adequate MEASUREMENTS (Male / Female) Normal Values 2D ECHO LV Diastolic Diameter PLAX 3.4 cm 4.2 - 5.9 / 3.9 - 5.3 cm LV Systolic Diameter PLAX 2.4 cm IVS Diastolic Thickness 1.8 cm 0.6 - 1.0 / 0.6 - 0.9 cm IVS Systolic Thickness 1.9 cm LVPW Diastolic Thickness 1.3 cm 0.6 - 1.0 / 0.6 - 0.9 cm LVPW Systolic Thickness 1.8 cm LVOT Diameter 2.0 cm LV Ejection Fraction 2D Teich 59.9 % LV Ejection Fraction MOD 2C 55.2 % LV Ejection Fraction 2C AL 55.5 % LA Diameter 3.7 cm LA Width 3.4 cm LA Height 4.8 cm RA Width 4.4 cm RA Height 5.7 cm Aorta at Sinotubular Diameter 2.2 cm IVC Diameter 1.6 cm M-MODE Aortic Annulus Diameter 2.2 cm LA Ao Ratio MM 1.6 MV E Point Septal Separation 0.4 cm DOPPLER AV Peak Velocity 153.0 cm/s LVOT Peak Velocity 128.0 cm/s AV Area Cont Eq vti 2.6 cm squared AV Area Cont Eq pk 2.7 cm squared MV Peak Velocity 146.0 cm/s MV Area PHT 4.0 cm squared Mitral E to A Ratio 0.7 MV E' Velocity 38.6 cm/s Mitral E to MV E' Ratio 12.1 Mitral E to LV E' Lateral Ratio 12.0 Mitral E to LV E' Septal Ratio 12.5 TR Peak Velocity 377.9 cm/s TR Peak Gradient 57.1 mmHg TR Mean Velocity 280.9 cm/s TR Mean Gradient 35.7 mmHg TR Velocity Time Integral 118.2 cm TV Peak E Velocity 81.0 cm/s Right Atrial Pressure 3.0 mmHg Pulmonary Artery Systolic Pressu 60.1 mmHg PV Peak Velocity 91.0 cm/s FINDINGS Left Ventricle Normal left ventricular size and systolic function, EF 57 %. Moderate left ventricular hypertrophy. No regional wall motion abnormalities. Grade I/IV diastolic dysfunction (abnormal relaxation filling pattern), normal to mildly elevated filling pressures. Right Ventricle The right ventricle is normal in size and function. Right Atrium The right atrium is normal in size. Left Atrium Mildly increased left atrial size. Mitral Valve Trace mitral valve regurgitation. Aortic Valve Thickened aortic valve. Tricuspid Valve Moderate tricuspid valve regurgitation. Estimated pulmonary artery peak systolic pressure 60 mmHg Pulmonic Valve Thickened pulmonic valve. Mild pulmonary valve regurgitation. Pericardium Normal pericardium without effusion. Aorta Normal ascending aorta dimension. IVC Normal inferior vena cava. CONCLUSIONS Normal left ventricular size and systolic function, EF 57 %. Moderate left ventricular hypertrophy. No regional wall motion abnormalities. Grade I/IV diastolic dysfunction (abnormal relaxation filling pattern), normal to mildly elevated filling pressures. Mildly increased left atrial size. Trace mitral valve regurgitation. Thickened aortic valve. Moderate tricuspid valve regurgitation. Estimated pulmonary artery peak systolic pressure 60 mmHg. Thickened pulmonic valve. Mild pulmonary valve regurgitation. There is no pericardial effusion. There are no intracardiac masses. No similar previous studies are available for comparison Dr Sandro Olmedo MD FAC (Electronically Signed) Final Date: 13 Nov 2022 19:10 S
--- NOTE | 2022-11-12 12:14 | CT_ITS ---
WS: [id number] CT chest wo con [id number] HISTORY: Status post thoracentesis. Possible pneumonia. TECHNIQUE: Axial imaging performed through the thorax. Coronal and sagittal reformats are submitted. All CT scans at [facility] use at least one of these dose optimization techniques: automated exposure control; mA and/or kV adjustment per patient size (includes targeted exams where dose is mat ched to clinical indication); or iterative reconstruction. CONTRAST: None DLP: 320.84 mGy.cm COMPARISON: None available. Lungs and central airway: Mild interstitial thickening in the periphery of both lungs. Very minimal s mall bilateral pleural effusions with compressive atelectasis at the lung bases. No pneumothorax. Con solidations are more consistent with atelectasis than pneumonia. Pleura: Very small bilateral pleural effusions. Heart and pericardium: Moderate cardiomegaly. Mediastinum and reginald: Small mediastinal and hilar lymph nodes. Vessels: Moderate atherosclerosis aorta. Bovine arch. Normal size pulmonary artery. Chest wall and lower neck: Mild soft tissue anasarca. Larger amount of subcutaneous edema along the L EFT lateral lower thorax and upper abdomen may be dependent edema. Upper abdomen: Mild perinephric stranding around the superior pole of each kidney. Osseous structures: Straightening of the normal thoracic kyphosis with scoliosis. CT/CT chest wo con [id number] IMPRESSION: 1. No pneumonia. 2. Very small bilateral pleural effusions with compressive atelectasis at the lung bases. 3. Soft tissue edema.
[2022-11-12 12:29] LABS: Apprearance, Body Fluid CLEAR; Color, Body Fluid PALE YELLOW; Cyto Order Verification Order Verified
[2022-11-12 12:35] LABS: Body Fluid Specific Gravity 1.015
[2022-11-12] MEDS: metoprolol tartrate 50 mg Tablet PO ×2 (12:37→17:44)
[2022-11-12 12:38] LABS: Body Fluid Polynuclear #Cells 0.022; Body Fluid WBC 315 /uL; Monocytes # Body Fluid 0.293; RBC, Body Fluid 0 10^3/uL
[2022-11-12] MEDS: aspirin 81 mg EC Tablet PO (12:38)
[2022-11-12 12:39] LABS: Fluid Laterality Left Upper; PATH Referral YES
[2022-11-12 13:27] LABS: Folate Level 2.9 ng/mL (4.8-37.3)
[2022-11-12 13:30] LABS: Procalcitonin 0.07 ng/mL (0-0.5); Vitamin B12 397 pg/mL (232-1245)
[2022-11-12 13:40] LABS: Albumin Body Fluid 0.8 g/dL; Amylase Body Fluid 9 U/L; Cholesterol Body Fluid 18 mg/dL (0-200); Fluid Alkaline Phos. 9 IU/L; LDH Body Fluid 80 U/L; Total Protein Pleural Fluid 1.5 g/dL; Triglycerides Body Fluid 33 mg/dL (0-150); Uric Acid Body Fluid 4 mg/dL
[2022-11-12 13:41] LABS: Iron 64 ug/dL (37-145); Total Iron Binding Capacity 164 mcg/dl; Unsaturated Iron Binding 100 ug/dL (112-347)
--- NOTE | 2022-11-12 14:51 | P.PN_ITS ---
Subjective Subjective: Hospital course, labs appreciated. Seen today morning after MRI and left thoracentesis. On examination patient laying comfortably in bed. Blood pressures on review seems to be on the higher side. Orthostatics was showing elevated blood pressures. Patient lying comfortably in bed. States she is does not think she have dizziness right now as she is not getting out of bed much. Denies any nausea, vomiting, headache. On 2 L of oxygen supplementation. Not on oxygen at baseline. Vitals/I&O/Wt Last Vital Signs Temp 97.5 F L 11/12/22 11:43 Pulse 99 11/12/22 11:43 Resp 18 11/12/22 11:43 BP 141/71 11/12/22 11:43 Pulse Ox 94 11/12/22 11:43 O2 Del Method Nasal Cannula 11/12/22 11:43 O2 Flow Rate 2 11/12/22 08:00 11/11/22 11/12/22 11/12/22 22:59 06:59 14:59 Intake Total 290 / 1211.167 530 / 5975.605 6954.000 / 1010.000 Balance 290 / 1211.167 530 / 8571.645 3513.000 / 1010.000 Physical Exam Narrative: EXAM NARRATIVE: General: No acute distress, AO x3, NC oxygen supplementation HEENT: PERRLA, pupils bilaterally equal and reactive Chest: Bilateral normal vesicular breath sounds, good equal air entry all over lung mcgovern CVS: S1-S2 regular, no murmurs, no tachycardia, no gallops, no rubs Abdomen: Soft, nontender, no organomegaly, bowel sounds present, morbidly obese Neuro: No focal deficits, no facial deformity, AO x3, power 5/5 in all limbs Data 11/12/22 03:57 11/12/22 03:57 Micro: Microbiology 11/12/22 11:00 Gram Stain - Final Pleural Fluid 11/10/22 09:08 Urine Culture - Final Urine,Clean Catch Escherichia coli 11/10/22 11:42 Blood Culture - Preliminary Blood NEGATIVE TO DATE 11/10/22 09:44 Blood Culture - Preliminary Blood NEGATIVE TO DATE A&P Assessment and plan (1) Dizziness on standing: (2) Generalized weakness: (3) Hypertension: (4) UTI (urinary tract infection): (5) CKD (chronic kidney disease) stage 3, GFR 30-59 ml/min: (6) Pleural effusion: (7) Vertebral artery stenosis: (8) Subclavian artery stenosis: (9) Pneumonia: Plan Dizziness: Most likely related to UTI versus vertebrobasilar insufficiency or subclavian steal syndrome given CTA head and neck results. Posterior circulation stroke ruled out on MRI. Fall precautions. PT evaluation. Orthostatics negative. Check echocardiogram. Meclizine as needed. For vertebrobasilar insufficiency: Lifestyle modification. Blood pressure control. Check A1c, lipid panels. Increase home dose of statin to 40 mg daily. Add Plavix 75 mg daily. Patient would benefit from following up as an outpatient with vascular surgeon for further evaluation. UTI: Follow-up blood cultures. Urine culture growing E. coli. Sensitivities appreciated. Switch to ceftriaxone to finish a 5-day course. Resistant to Levaquin. Left-sided pleural effusion: Underwent thoracentesis. Appreciate fluid analysis results. Pneumonia and parapneumonic fluid unlikely. Appreciate postthoracentesis x-ray. CT chest without contrast for further ev aluation. IV antibiotics as above. Follow-up fluid cultures. CKD: Baseline creatinine 1.2-1.5. Creatinine at baseline. Medical reconciliation done for nephrotoxic drugs. Monitor BMP daily. Hypertension: Goal blood pressure less than 140/90 mmHg. Monitor blood pressure daily. Amlodipine 5 mg oral daily. Restart metoprolol tartrate at 50 mg twice daily. Uptitrate as per goal blood pressures. Check iron panel, TSH, vitamin B12, folate levels. Follow-up PT evaluation. Discharge plan: Plan to discharge home with home health as per PT evaluation within next 24 hours patient remains hemodynamically stable. DNR/DNI. Regular diet. Lactose-free. Famotidine for PUD prophylaxis Lovenox for DVT prophylaxis. Attestations Medical Necessity Statement*: Requires further hospitalization for management of UTI, significant symptomatic dizziness in setting of possible subclavian steal syndrome, elevated blood pressures while parapneumonic effusion is ruled out Diagnoses Dizziness on standing R42 Generalized weakness R53.1 Hypertension I10 UTI (urinary tract infection) N39.0 CKD (chronic kidney disease) stage 3, GFR 30-59 ml/min N18.30 Pleural effusion J90 Vertebral artery stenosis I65.09 Subclavian artery stenosis I77.1 Pneumonia J18.9
[2022-11-12] MEDS: atorvastatin 40 mg Tablet 20 MG PO (21:18)
--- NOTE | 2022-11-12 21:20 | PC.NURSE ---
Ceftriaxone had to be re-timed due to patient not having IV access until 2119.
[2022-11-12] MEDS: cefTRIAXone 1,000 MG in sodium chloride 0.9% (plus) 50 ML 100 MG IV (21:24)
[2022-11-13] VITALS (7 sets, daily range): BP systolic 107–132; BP diastolic 61–81; PULSE 67–83; RESP 16–17; TEMP 36.6–36.7; O2SAT 90–96
[2022-11-13] MEDS: acetaminophen 325 mg Tablet 650 MG PO (00:19)
[2022-11-13 04:35] LABS: Basophils # 0.1 10^3/uL (0.0-0.1); Basophils % 1.2 %; Eosinophils # 0.5 10^3/uL (0.0-0.8); Eosinophils % 7.6 %; Hematocrit 42.6 % (37.0-47.0); Hemoglobin 13.5 g/dL (11.5-15.3); Lymphocytes # 1.8 10^3/uL (0.8-4.8); Lymphocytes % 27.4 %; Mean Corpuscular HGB Conc 31.7 g/dL (30.0-36.0); Mean Corpuscular Volume 97.9 fl (81-99); Mean Platelet Volume 11.4 fL (7.4-10.4); Monocytes # 0.7 10^3/uL (0.2-0.9); Neutrophils # 3.44 10^3/uL (1.8-7.7); Neutrophils % 52.5 %; Nucleated Red Blood Cells % 0 %; Platelet Count 160 10^3/cmm (130-400); Red Blood Count 4.35 10^6/uL (4.1-5.3); Red Cell Distribution Width 17.2 % (12.1-15.1); White Blood Count 6.6 10^3/uL (4.0-10.0)
[2022-11-13 04:47] LABS: Estmated Average Glucose 82; Hemoglobin A1C 4.5 % (4.0-6.0)
[2022-11-13 04:56] LABS: Alanine Aminotransferase 7 U/L (0-33); Albumin Level 2.6 g/dL (3.5-5.2); Alkaline Phosphatase 93 U/L (35-105); Anion Gap 10.6 (5-19); Aspartate Amino Transferase 19 U/L (0-32); Blood Urea Nitrogen 15 mg/dL (8-23); Calcium 8.4 mg/dL (8.5-10.5); Carbon Dioxide 28 mmol/L (22-29); Chloride 104 mmol/L (98-107); Chol HDL Ratio 2.43 mg/dL (0.0-4.40); Cholesterol 107 mg/dL (0-200); Globulin 2.8 g/dL (1.3-4.6); Glucose 87 mg/dL (65-115); HDL Cholesterol 44 mg/dL (60-100); LDL Cholesterol Calculated 42 mg/dL (50-129); Osmolality Calculated 288 mOsm/kg (285-295); Potassium 3.6 mmol/L (3.5-5.1); Sodium 139 mmol/L (136-145); Total Bilirubin 0.7 mg/dL (0.15-1.2); Total Protein 5.4 g/dL (6.6-8.7); Triglycerides 107 mg/dL (0-150); VLDL Cholestrol Calculation 21 mg/dL (0-30)
[2022-11-13] MEDS: escitalopram 10 mg Tablet PO (10:06)
[2022-11-13] MEDS: aspirin 81 mg EC Tablet PO (10:07)
[2022-11-13] MEDS: amlodipine 5 mg Tablet PO (10:07)
[2022-11-13] MEDS: metoprolol tartrate 50 mg Tablet PO (10:07)
--- NOTE | 2022-11-13 11:03 | P.DS_ITS ---
Discharge Providers Date of Admission: 11/10/22 10:03 Date of Discharge: November 13, 2022 Attending Provider at Admission: Martha Collazo MD Attending Provider at Discharge: Red Cortez MD Primary Care Provider: Mohan Tovar MD Diagnoses at Discharge Discharge Diagnosis (1) Dizziness on standing: Status: Acute (2) Generalized weakness: Status: Acute (3) Hypertension: Status: Acute (4) UTI (urinary tract infection): Status: Acute (5) CKD (chronic kidney disease) stage 3, GFR 30-59 ml/min: Status: Acute (6) Pleural effusion: Status: Acute (7) Vertebral artery stenosis: Status: Acute (8) Subclavian artery stenosis: Status: Acute (9) Pneumonia: Status: Acute Reason for Visit Reason for Visit: DIZZY Brief History: History as per HPI: Ketty Quijano is a 87 year old female with past medical history HTN, CVA, with some left-sided weakness, came in today with chief complaint of Dizziness, particularly when see moves her head [id number], or even minutes he trY to sit from lying down position, this started about 6 months back and since then it has progressively worsened, still complaining of Nausea but no vomiting. She is possibly complaining of limb claudication, though the dizziness can be related to Vertebrobasilar syndrome, subclavian artery steal syndrome can also be a consideration.In the last few days she has also been complaining of increasing generalized weakness, and has experienced,Several falls lately at home. CT head without contrast no acute intracranial pathology CT neck with contrast has shown:?Occlusion of the proximal right vertebral artery,High-grade stenosis with near occlusion of the right subclavian artery at the thoracic inlet.?50% stenosis of the left subclavian artery at the thoracic inle,Large left and small right simple pleural effusions. X-ray chest: Moderate to large left-sided pleural effusion, left lungs base compressive atelectasis. Pertinent labs: WBC:? 5.5 , H&H:14/44 , PLT : 173 , serum sodium 142, serum potassium 4.3, BUN 22, serum creatinine 1.2, Troponin trend:44-- EKG: Sinus rhythm with sinus arrhythmia. Hospital Course Hospital Course Patient was admitted to the hospital further evaluation and management of generalized weakness and dizziness. On admission CTA head and neck was done which was consistent with high-grade stenosis with near occlusion of right subclavian artery at thoracic inlet along with occlusion of the right vertebral artery. MRI head and CT head were negative for any acute stroke or posterior stroke. There was a concern of UTI and possible pneumonia with parapneumonic effusion on admission for which she started on broad-spectrum antibiotics. She underwent thoracentesis on 11/12 which she tolerated well. Pleural fluid is negative for signs of infection. CT chest postthoracentesis was negative for consolidation. Her urine cultures grew E. coli which was resistant to Levaquin but was sensitive to ceftriaxone and cefepime. She was continued on IV antibiotics. Blood cultures remain negative. It is believed her symptoms of dizziness and weakness are most likely in setting of persistent uncontrolled hypertension in setting of vertebral stenosis leading to vertebrobasilar insufficiency or subclavian steal syndrome. Her medications were optimized after which her blood pressures remained stable. Patient was seen by physical therapy during hospitalization and has been on room air, within 24 hours. She has been discharged in hemodynamically stable condition on oral amiodarone 5 mg once daily, metoprolol 50 mg twice daily with advised to check her blood pressure daily at home and maintain a blood pressure diary and follow-up with a primary care provider within next 1 week for further adjustment of antihypertensives. She is to take Keflex 500 mg twice daily for 3 more days to finish a course of antibiotics for UTI. Her dose of lovastatin has been increased to high-dose statins. Patient was advised to follow-up with vascular surgeon at [place] either [facility] or [facility] for further evaluation of possible subclavian steal syndrome. Patient verbalized understanding though states he does not get out of house much but will try her best. Physical Exam Narrative: EXAM NARRATIVE: General: No acute distress, AO x3, NC oxygen supplementation HEENT: PERRLA, pupils bilaterally equal and reactive Chest: Bilateral normal vesicular breath sounds, good equal air entry all over lung mcgovern CVS: S1-S2 regular, no murmurs, no tachycardia, no gallops, no rubs Abdomen: Soft, nontender, no organomegaly, bowel sounds present, morbidly obese Neuro: No focal deficits, no facial deformity, AO x3, power 5/5 in all limbs Discharge Data Studies Completed and Pending Completed Studies During Hospitalization Category Date Time Status CT chest [facility] [id number] Routine Cat Scan 11/12/22 12:[address] head wo con* [id number] Stat Cat Scan 11/10/22 09:[address] neck w con* [id number] Routine Cat Scan 11/10/22 11:20 Completed XR chest 1V portable [id number] Stat Exams 11/10/22 08:39 Completed XR chest 1V portable [id number] Stat Exams 11/12/22 11:07 Completed MR head wo con* [id number] Routine MRI 11/12/22 09:30 Completed US thoracentesis [id number] Routine Ultrasound 11/12/22 10:30 Completed Pending at discharge Category Date Time Status Anaerobic Culture Routine Lab 11/12/22 11:00 Results Bacterial Antigen Stat Lab 11/12/22 12:12 Ordered Blood Culture Stat Lab 11/10/22 11:42 Results Body Fluid Culture & GS Routine Lab 11/12/22 11:00 Results Fungal Culture not HR/SK/BL Routine Lab 11/12/22 11:00 Received Glucose Pleural Fluid Routine Lab 11/10/22 17:36 Uncollected LDH Pleural Fluid Routine Lab 11/10/22 17:36 Uncollected MRSA by PCR Routine Lab 11/12/22 14:17 Received Mycobacteria, Culture w/Fluor Routine Lab 11/12/22 11:00 Received Pleural Fluid Albumin Routine Lab 11/10/22 17:36 Uncollected Pleural Fluid Cholesterol Routine Lab 11/10/22 17:36 Uncollected Total Protein Pleural Fluid Routine Lab 11/10/22 17:36 Uncollected pH Pleural Fluid Routine Lab 11/10/22 17:36 Uncollected Cytology [PTH] Routine Pth 11/12/22 12:16 Received CV. echo complete* [id number] Routine Ultrasound 11/12/22 12:13 Taken Radiology Impressions Head CT 11/10/22 09:03 IMPRESSION: No acute intracranial pathology detected. Neck CT 11/10/22 11:20 IMPRESSION: 1. Occlusion of the proximal right vertebral artery. Acuity is indeterminate. 2. Large left and small right simple pleural effusions. 3. High-grade stenosis with near occlusion of the right subclavian artery at the thoracic inlet. Less than 50% stenosis of the left subclavian artery at the thoracic inlet. 4. Dependent opacity in the left upper lobe. Probable atelectasis. Infection not excluded. 5. High-grade stenosis with near occlusion of the right subclavian artery at the level of the thoracic inlet. 6. Chronic infarction in the right cerebellar hemisphere. 7. Incidental findings above. ADDENDUM: 11/10/22 1508 THIS REPORT CONTAINS FINDINGS THAT MAY BE CRITICAL TO PATIENT CARE. The findings were verbally communicated via telephone conference with MARTHA COLLAZO at 3:06 PM CDT on 11/10/2022. The findings were acknowledged and understood. Head MRI 11/12/22 09:30 IMPRESSION: 1. No evidence of restricted diffusion to suggest acute ischemia. 2. Moderate small vessel changes with moderate parenchymal volume loss. 3. Chronic infarct RIGHT cerebellum with encephalomalacia and gliosis. 4. Small chronic lacunar infarcts in the bilateral cerebellum. 5. No hemosiderin on susceptibly weighted images. 6. Mild mucosal thickening in the mastoid air cells. 7. Moderate symmetric atrophy temporal lobes and hippocampal formations. Thoracentesis Ultrasound 11/12/22 10:30 IMPRESSION: Uncomplicated ultrasound-guided LEFT thoracentesis with removal of 1000 cc pleural fluid. Chest X-Ray 11/12/22 11:07 IMPRESSION: Improved LEFT pleural effusion post thoracentesis. No pneumothorax. Chest CT 11/12/22 12:14 IMPRESSION: 1. No pneumonia. 2. Very small bilateral pleural effusions with compressive atelectasis at the lung bases. 3. Soft tissue edema. Microbiology 11/12/22 11:00 Pleural Fluid Gram Stain - Final 11/12/22 11:00 Pleural Fluid Anaerobic Culture - Preliminary 11/12/22 11:00 Pleural Fluid Body Fluid Culture - Preliminary 11/12/22 14:17 Nose MRSA Culture - Final 11/10/22 09:08 Urine,Clean Catch Urine Culture - Final Escherichia coli 11/10/22 11:42 Blood Blood Culture - Preliminary NEGATIVE TO DATE 11/10/22 09:44 Blood Blood Culture - Preliminary NEGATIVE TO DATE Laboratory Results WBC 6.6 10^3/uL (4.0-10.0) 11/13/22 04:16 RBC 4.35 10^6/uL (4.1-5.3) 11/13/22 04:16 Hgb 13.5 g/dL (11.5-15.3) 11/13/22 04:16 Hct 42.6 % (37.0-47.0) 11/13/22 04:16 MCV 97.9 fl (81-99) 11/13/22 04:16 MCH 31.0 pg (28.0-34.0) 11/13/22 04:16 MCHC 31.7 g/dL (30.0-36.0) 11/13/22 04:16 RDW 17.2 % (12.1-15.1) H 11/13/22 04:16 Plt Count 160 10^3/cmm (130-400) 11/13/22 04:16 MPV 11.4 fL (7.4-10.4) H 11/13/22 04:16 Neut % (Auto) 52.5 % 11/13/22 04:16 Lymph % (Auto) 27.4 % 11/13/22 04:16 Ogle % (Auto) 11.0 % 11/13/22 04:16 Eos % (Auto) 7.6 % 11/13/22 04:16 Baso % (Auto) 1.2 % 11/13/22 04:16 Neut # (Auto) 3.44 10^3/uL (1.8-7.7) 11/13/22 04:16 Lymph # (Auto) 1.8 10^3/uL (0.8-4.8) 11/13/22 04:16 Ogle # (Auto) 0.7 10^3/uL (0.2-0.9) 11/13/22 04:16 Eos # (Auto) 0.5 10^3/uL (0.0-0.8) 11/13/22 04:16 Baso # (Auto) 0.1 10^3/uL (0.0-0.1) 11/13/22 04:16 Nucleated RBC % (auto) 0 % 11/13/22 04:16 Nucleated RBCs # 0.0 /100WBC 11/13/22 04:16 Differential Comment Yes 11/12/22 11:00 PT 14.80 SECONDS (12.1-14.9) 11/12/22 03:57 INR 1.13 (0.8-1.2) 11/12/22 03:57 Sodium 139 mmol/L (136-145) 11/13/22 04:16 Potassium 3.6 mmol/L (3.5-5.1) 11/13/22 04:16 Chloride 104 mmol/L (98-107) 11/13/22 04:16 Carbon Dioxide 28 mmol/L (22-29) 11/13/22 04:16 Anion Gap 10.6 (5-19) 11/13/22 04:16 BUN 15 mg/dL (8-23) 11/13/22 04:16 Creatinine 1.2 mg/dL (0.5-0.9) H 11/13/22 04:16 GFR Calculation Not Reportable 11/13/22 04:16 Glucose 87 mg/dL (65-115) 11/13/22 04:16 POC Glucose 71 mg/dL (70-110) 11/10/22 09:42 Estimat Average Glucose 82 11/13/22 04:16 Hemoglobin A1c 4.5 % (4.0-6.0) 11/13/22 04:16 Calculated Osmolality 288 mOsm/kg (285-295) 11/13/22 04:16 Calcium 8.4 mg/dL (8.5-10.5) L 11/13/22 04:16 Magnesium 1.5 mg/dL (1.7-2.3) L 11/11/22 04:45 Iron 64 ug/dL (37-145) 11/12/22 04:06 TIBC 164 mcg/dl 11/12/22 04:06 % Saturation 39.0 % (20-50) 11/12/22 04:06 Unsat Iron Binding 100 ug/dL (112-347) L 11/12/22 04:06 Total Bilirubin 0.7 mg/dL (0.15-1.2) 11/13/22 04:16 AST 19 U/L (0-32) 11/13/22 04:16 ALT 7 U/L (0-33) 11/13/22 04:16 Alkaline Phosphatase 93 U/L (35-105) 11/13/22 04:16 Troponin T Baseline 44 ng/L (0-10) H 11/10/22 08:50 Troponin T 120 Minute 31.53 ng/L (0-10) H 11/10/22 11:25 Delta Troponin T -12.47 ABS# (0-10) L 11/10/22 11:25 Troponin T Hi Sens 6Hr 31.38 ng/L (0-10) H 11/10/22 14:59 Troponin T Hi Sens 6Hr Delta -12.62 ng/L (0-12) L 11/10/22 14:59 Total Protein 5.4 g/dL (6.6-8.7) L 11/13/22 04:16 Albumin 2.6 g/dL (3.5-5.2) L 11/13/22 04:16 Globulin 2.8 g/dL (1.3-4.6) 11/13/22 04:16 Triglycerides 107 mg/dL (0-150) 11/13/22 04:16 Cholesterol 107 mg/dL (0-200) 11/13/22 04:16 LDL Cholesterol, Calc 42 mg/dL (50-129) L 11/13/22 04:16 Total VLDL Cholesterol 21 mg/dL (0-30) 11/13/22 04:16 HDL Cholesterol 44 mg/dL (60-100) L 11/13/22 04:16 Cholesterol/HDL Ratio 2.43 mg/dL (0.0-4.40) 11/13/22 04:16 Vitamin B12 397 pg/mL (232-1245) 11/12/22 04:06 Folate 2.9 ng/mL (4.8-37.3) L 11/12/22 04:06 Procalcitonin 0.07 ng/mL (0-0.5) 11/12/22 04:06 TSH 3.60 uIU/mL (0.27-4.20) 11/12/22 04:06 Urine Color Yellow (Yellow) 11/10/22 09:08 Urine Appearance Cloudy (CLEAR) A 11/10/22 09:08 Urine pH 6 (5-7) 11/10/22 09:08 Ur Specific Bunch 1.020 (1.005-1.030) 11/10/22 09:08 Urine Protein 3+ (Negative) H 11/10/22 09:08 Urine Glucose (UA) Norm (Normal) 11/10/22 09:08 Urine Ketones Negative (Negative) 11/10/22 09:08 Urine Blood 3+ (Negative) H 11/10/22 09:08 Urine Nitrate Positive (Negative) H 11/10/22 09:08 Urine Bilirubin Neg (Negative) 11/10/22 09:08 Urine Urobilinogen Norm mg/dL (Negative) 11/10/22 09:08 Ur Leukocyte Esterase 2+ (Negative) H 11/10/22 09:08 Urine RBC 5-10 /hpf (0-2) H 11/10/22 09:08 Urine WBC >100 /hpf (0-5) H 11/10/22 09:08 Ur Squamous Epith Cells 0-4 /hpf (0-5) H 11/10/22 09:08 Amorphous Sediment Not Reportable 11/10/22 09:08 Urine Bacteria 2+ /hpf (NONE) H 11/10/22 09:08 Fluid Color Pale yellow 11/12/22 11:00 Fluid Appearance Clear 11/12/22 11:00 Fluid Specific Grav 1.015 11/12/22 11:00 Fluid pH 8.0 11/12/22 11:00 Fluid WBC 315 /uL 11/12/22 11:00 Fluid RBC 0 10^3/uL 11/12/22 11:00 Fld Polynuclear WBCs # 0.022 11/12/22 11:00 Fld Polynuclear WBCs % 7.000 % 11/12/22 11:00 Fl Mononucl WBCs #(Auto) 0.293 11/12/22 11:00 Fl Mononuclear % Auto 93.000 % 11/12/22 11:00 Fld Crystal Laterality Left upper 11/12/22 11:00 Fluid Glucose 97.0 mg/dL 11/12/22 11:00 Fluid Albumin 0.8 g/dL 11/12/22 11:00 Fluid LDH 80 U/L 11/12/22 11:00 Fluid Amylase 9 U/L 11/12/22 11:00 Fluid Alk Phosphatase 9 IU/L 11/12/22 11:00 Fluid Cholesterol 18 mg/dL (0-200) 11/12/22 11:00 Fluid Triglycerides 33 mg/dL (0-150) 11/12/22 11:00 Fluid Uric Acid 4 mg/dL 11/12/22 11:00 Pleural Total Protein 1.5 g/dL 11/12/22 11:00 Vitals Last Vital Signs Temp 97.9 F 11/13/22 08:00 Pulse 83 11/13/22 08:34 Resp 17 11/13/22 08:00 BP 126/74 11/13/22 08:00 Pulse Ox 91 11/13/22 08:34 O2 Del Method Room Air 11/13/22 08:34 O2 Flow Rate 2 11/12/22 08:00 Discharge Plan Discharge Patient Disposition: Home Condition: Stable Prescriptions: New amlodipine 5 mg Tablet 5 mg PO DAILY Qty: 30 0RF aspirin 81 mg Tablet,Delayed Release (Dr/Ec) 81 mg PO DAILY Qty: 30 0RF metoprolol tartrate 50 mg Tablet 50 mg PO BID Qty: 60 0RF meclizine 25 mg Tablet 25 mg PO TID PRN (Reason: DIZZINESS) Qty: 10 0RF atorvastatin 40 mg tablet 40 mg PO DAILY Qty: 30 0RF cephalexin 500 mg tablet 500 mg PO Q12H 3 Days Qty: 6 0RF Continued hydrocodone-acetaminophen 10-325 mg tablet 1 tab PO Q6H PRN (Reason: Pain) escitalopram oxalate 10 mg tablet 10 mg PO DAILY dicyclomine 10 mg capsule 10 mg PO BID PRN (Reason: abdominal pain) Qty: 20 0RF Discontinued metoprolol tartrate 100 mg tablet 100 mg PO BID lovastatin 20 mg tablet 20 mg PO BEDTIME Discharge Orders: Discharge Order (Routine); Ordered 11/13/22 Ordered By: Red Cortez Referrals: Moahn Tovar MD [Primary Care Provider] - 11/22/22 3:00 pm Discharge Diet: Regular Discharge Activity: Resume usual activity and Increase activity as tolerated Patient Instructions: Dizziness, Cephalexin (By mouth), Metoprolol (By mouth), Aspirin (By mouth), Meclizine (By mouth), Amlodipine (By mouth), Atorvastatin (By mouth), Pneumonia (ED), Opioid Safety, Pneumonia Stoplight Activity Restrictions/Additional Instructions: Dose of metoprolol has been changed to 50 mg twice daily, atorvastatin has been increased to 40 mg daily. Amlodipine 5 mg daily has been added to medication list. Please check blood pressure twice daily and maintain a blood pressure diary and follow-up with a primary care provider within next 1 week for further adjustment of antihypertensive. Continue taking Keflex just antibiotic twice daily for 3 more days to finish a course of antibiotics for UTI. You can take meclizine 25 mg as needed 3 times a day for dizziness. You should follow-up with a vascular surgeon at [place] either [facility] or [facility] for further evaluation and management of high-grade stenosis. Discharge Attestations Time Spent in Discharge Care*: greater than 30 min Specific Discharge Activities: educating patient, discussing with pcp/other providers, discussing with caser in/social workers/dc planners, documenting/other paperwork and evaluating patient/reviewing data Status at Discharge: Cognitive status at discharge: cognitively intact , Behavioral status at discharge: cooperative , Functional status at discharge: uses cane/walker , Overall status at discharge: patient is progressing back to baseline Quality Metrics Clinical Quality Measures [ No reported AMI, CVA or VTE this stay] Coding Level of Care Code 84548 Total time (in minutes) for Discharge: 60 Diagnoses Dizziness on standing R42 Generalized weakness R53.1 Hypertension I10 UTI (urinary tract infection) N39.0 CKD (chronic kidney disease) stage 3, GFR 30-59 ml/min N18.30 Pleural effusion J90 Vertebral artery stenosis I65.09 Subclavian artery stenosis I77.1 Pneumonia J18.9
== END 2022-11-13 14:36 | disposition home health service (06) | DRG 690 ==
LOC: ER 08:49 → MEDSURG 10:21
PROVIDERS: Admitting Provider Internal Medicine; Emergency Provider Family Medicine; PCP Family Medicine; Visit Provider Student in an Organized Health Care Education/Training Program
DX: N39.0 Urinary tract infection, site not specified (principal); G45.0 Vertebro-basilar artery syndrome; J90 Pleural effusion, not elsewhere classified; I69.954 Hemiplegia and hemiparesis following unspecified cerebrovascular disease affecting left non-dominant side; G45.8 Other transient cerebral ischemic attacks and related syndromes; I12.9 Hypertensive chronic kidney disease with stage 1 through stage 4 chronic kidney disease, or unspecified chronic kidney disease; N18.30 Chronic kidney disease, stage 3 unspecified; B96.20 Unspecified Escherichia coli [E. coli] as the cause of diseases classified elsewhere; Z79.891 Long term (current) use of opiate analgesic; Z99.81 Dependence on supplemental oxygen; Z66 Do not resuscitate
CPT/HCPCS: 32555; 36415; 36416; 70450; 70491; 70551; 71045; 71250; 80053; 80061; 80503; 81001; 82042; 82150; 82465; 82607; 82746; 82945; 82962; 83036; 83540; 83550; 83615; 83735; 83986; 84075; 84145; 84157; 84315; 84443; 84478; 84484; 84560; 85025; 85610; 87015; 87040; 87070; 87075; 87077; 87086; 87102; 87116; 87186; 87205; 87206; 87641; 87801; 88112; 88305; 89050; 93005; 93306; 96365; 96367; 96372; 97116; 97161; 97530; 99285; J0456; J0696; J1650; J2405; J2543; J3475; J7030; J7050; J8597; Q9967

== ENCOUNTER 2023-02-21 10:00 | Inpatient (IN) | payer MEDICARE, SELFPAY ==
[2023-02-21] VITALS (11 sets, daily range): BP systolic 100–169; BP diastolic 55–105; PULSE 56–67; RESP 15–19; TEMP 36.4–37.1; O2SAT 94–98; BMI 28.7
--- NOTE | 2023-02-21 10:34 | XR_ITS ---
WS: [id number] XR chest 2V* [id number] REASON FOR EXAM: Shortness of breath FINDINGS: The patient has redeveloped large left pleural effusion similar to 11/10/2022. Chest is otherwise unchanged compared to previous examination of 11/12/2022. IMPRESSION: Recurrent left pleural effusion.
--- NOTE | 2023-02-21 10:35 | ECG_ITS ---
[facility] Test Date: 2023-02-21 Pat Name: Ketty Quijano Department: Room: Gender: Female [employer]: : 1935 Requested By: Melissa Ch Order Number: [id number] Caremn MD: Meek Dodge M.D. Measurements Intervals [place] Rate: 62 P: 39 CT: 180 QRS: 81 QRSD: 112 T: 41 QT: 431 QTc: 441 Interpretive Statements SINUS RHYTHM WITH SINUS ARRHYTHMIA RIGHT BUNDLE BRANCH BLOCK [120+ ms QRS DURATION, UPRIGHT V1, 40+ ms S IN I/aVL/V4/V5/V6] SEPTAL MYOCARDIAL INFARCTION , PROBABLY OLD [40+ ms Q WAVE IN V1/V2] Compared to ECG 11/10/2022 13:57:59 Right bundle-branch block now present Myocardial infarct finding now present Electronically Signed On 02-22-2023 9:26:58 CDT by Meek Dodge M.D. [email or web address]
--- NOTE | 2023-02-21 10:44 | ED_ITS ---
HPI - SOB/Dyspnea General: Chief Complaint: Shortness of Breath/Dyspnea Stated Complaint: sob Time Seen by Provider: 02/21/23 10:44 History of Present Illness: HPI Narrative: 87-year-old lady with progressively worsening shortness of breath. Patient has been marked with limitations in ability to perform ADLs. Subacute approximate 1 week ago gradually worsening. Some extremity edema. No other specific changes in health, exacerbating, or alleviating factors identified. Pertinent past history: congestive heart failure and other Onset (ago): day(s) Severity: severe Exacerbating factors: lying flat and exertion Associated symptoms: Reports no associated symptoms Review of Systems General: Reports: 10 or more systems reviewed and unremarkable except in HPI and below PFSH ED PFSH: Medical History Acute kidney injury superimposed on chronic kidney disease REAGAN (acute kidney injury) Colitis Diverticular hemorrhage Diverticulitis Gastroenteritis History of sciatica Hypertension Nausea & vomiting Sepsis Sepsis associated hypotension Thrombocytopenia Social History Substance/Drug Use: never Physical Exam Const: COMMON NORMALS: alert GENERAL APPEARANCE: cooperative and well developed HENMT: COMMON NORMALS: normocephalic and atraumatic HEAD & SCALP: normocephalic and atraumatic Eye: COMMON NORMALS: conjunctivae normal CONJUNCTIVA: Yes conjunctivae normal SCLERA: sclerae normal Neck/C-Spine: COMMON NORMALS: supple GENERAL: Yes trachea midline Resp: EFFORT & INSPECTION: Yes able to speak in complete sentences AUSCULTATION: crackles and diminished lung sounds on the left in the lower lung mcgovern Cardio: COMMON NORMALS: regular rate and regular rhythm RATE: regular rate RHYTHM: regular rhythm GI: COMMON NORMALS: Soft to palpation PALPATION: Yes Soft to palpation and No Tenderness to palpation present (GI) Extremity: GENERAL: Yes normal exam except as noted and Yes edema Neuro: COMMON NORMALS: moves all extremities SENSORIUM/ORIENTATION: Yes alert and No Orientation impaired Psych: COMMON NORMALS: mental status grossly normal and Normal thought process present THOUGHT PROCESS: Normal thought process present Course Vital Signs: Vital signs: Vital Signs Temperature 97.9 F 02/23/23 14:16 Pulse Rate 60 02/23/23 14:16 Respiratory Rate 19 H 02/23/23 14:16 Blood Pressure 101/59 02/23/23 14:16 Pulse Oximetry 87 L 02/23/23 14:46 Oxygen Delivery Me thod Nasal Cannula 02/23/23 11:15 Oxygen Flow Rate 2 02/23/23 14:46 MDM - SOB/Dyspnea Medical Decision Making 87-year-old lady presenting with shortness of breath. Exam as above. Nontoxic. EKG demonstrates atrial fibrillation with interventricular conduction delay, no STEMI. Labs with no significant hematologic abnormality. Metabolic panel similar to baseline. Elevated BNP. Intermediate range 2-hour delta troponin. Chest x-ray with recurrent large left pleural effusion which likely explains symptoms. Patient has new oxygen requirement and therefore requires in-hospital management. No occasion for emergent ED performed thoracentesis. The results of ED evaluation were discussed with the patient including plan for admission due to requirement for level of care not available if discharged to prevent significant worsening/deterioration. Patient agreeable with plan. Discussed with hospitalist service who was agreeable to admit patient. Medical Records I reviewed the patient's medical records. Lab Data I reviewed the patient's lab results. 02/23/23 05:03 02/23/23 05:03 Labs/Radiology: Radiology Impressions Chest CTA 02/22/23 15:06 IMPRESSION: 1. No evidence for pulmonary embolus. 2. Medium right and small right pleural effusions. 3. Scattered atelectasis with possible mild interstitial pulmonary edema. 4. Mild body wall edema. Laboratory Results WBC 5.7 10^3/uL (4.0-10.0) 02/21/23 11:00 RBC 4.31 10^6/uL (4.1-5.3) 02/21/23 11:00 Hgb 14.6 g/dL (11.5-15.3) 02/21/23 11:00 Hct 44.9 % (37.0-47.0) 02/21/23 11:00 MCV 104.2 fl (81-99) H 02/21/23 11:00 MCH 33.9 pg (28.0-34.0) 02/21/23 11:00 MCHC 32.5 g/dL (30.0-36.0) 02/21/23 11:00 RDW 15.1 % (12.1-15.1) 02/21/23 11:00 Plt Count 246 10^3/cmm (130-400) 02/21/23 11:00 MPV 11.2 fL (7.4-10.4) H 02/21/23 11:00 Neut % (Auto) 45.3 % 02/21/23 11:00 Lymph % (Auto) 33.6 % 02/21/23 11:00 [place] % (Auto) 12.8 % 02/21/23 11:00 Eos % (Auto) 6.3 % 02/21/23 11:00 Baso % (Auto) 1.8 % 02/21/23 11:00 Neut # (Auto) 2.59 10^3/uL (1.8-7.7) 02/21/23 11:00 Lymph # (Auto) 1.9 10^3/uL (0.8-4.8) 02/21/23 11:00 [place]uthrie # (Auto) 0.7 10^3/uL (0.2-0.9) 02/21/23 11:00 Eos # (Auto) 0.4 10^3/uL (0.0-0.8) 02/21/23 11:00 Baso # (Auto) 0.1 10^3/uL (0.0-0.1) 02/21/23 11:00 Nucleated RBC % (auto) 0 % 02/21/23 11:00 Nucleated RBCs # 0.0 /100WBC 02/21/23 11:00 Differential Comment Yes 02/21/23 10:30 D-Dimer 2.48 ug/mIFEU (0-0.59) H 02/21/23 11:50 Sodium 138 mmol/L (136-145) 02/21/23 11:50 Potassium 3.8 mmol/L (3.5-5.1) 02/21/23 11:50 Chloride 103 mmol/L (98-107) 02/21/23 11:50 Carbon Dioxide 24 mmol/L (22-29) 02/21/23 11:50 Anion Gap 14.8 (5-19) 02/21/23 11:50 BUN 12 mg/dL (8-23) 02/21/23 11:50 Creatinine 1.1 mg/dL (0.5-0.9) H 02/21/23 11:50 GFR Calculation Not Reportable 02/21/23 11:50 Glucose 97 mg/dL (65-115) 02/21/23 11:50 Calculated Osmolality 286 mOsm/kg (285-295) 02/21/23 11:50 Calcium 9.1 mg/dL (8.5-10.5) 02/21/23 11:50 Total Bilirubin 0.8 mg/dL (0.15-1.2) 02/21/23 11:50 AST 21 U/L (0-32) 02/21/23 11:50 ALT 8 U/L (0-33) 02/21/23 11:50 Alkaline Phosphatase 142 U/L (35-105) H 02/21/23 11:50 Troponin T Baseline 23 ng/L (0-10) H 02/21/23 11:50 NT-Pro-B Natriuret Pep 2490 pg/mL (0-450) H 02/21/23 11:50 Total Protein 6.9 g/dL (6.6-8.7) 02/21/23 11:50 Albumin 3.1 g/dL (3.5-5.2) L 02/21/23 11:50 Globulin 3.8 g/dL (1.3-4.6) 02/21/23 11:50 Fluid Color Pale yellow 02/21/23 10:30 Fluid Appearance Clear 02/21/23 10:30 Fluid Specific Grav 1.010 02/21/23 10:30 Fluid pH 8.0 02/21/23 10:30 Fluid WBC 269 /uL 02/21/23 10:30 Fluid RBC 0 10^3/uL 02/21/23 10:30 Fld Polynuclear WBCs # 0.006 02/21/23 10:30 Fld Polynuclear WBCs % 2.200 % 02/21/23 10:30 Fl Mononucl WBCs #(Auto) 0.263 02/21/23 10:30 Fl Mononuclear % Auto 97.800 % 02/21/23 10:30 Fld Crystal Laterality Left thoracentesis 02/21/23 10:30 Fluid Glucose 89.0 mg/dL 02/21/23 10:30 Fluid Albumin 1.4 g/dL 02/21/23 10:30 Fluid LDH 66 U/L 02/21/23 10:30 Fluid Cholesterol 27 mg/dL (0-200) 02/21/23 10:30 Fluid Uric Acid 6 mg/dL 02/21/23 10:30 Pleural Total Protein 2.4 g/dL 02/21/23 10:30 SARS-CoV-2 Ag (Rapid) negative (Negative) 02/21/23 13:09 Discharge Plan Discharge Patient Disposition: Admitted As Inpatient Admit Provider: Marlena Wilde Clinical Impression: Acute exacerbation of CHF (congestive heart failure), Hypoxemia, Recurrent left pleural effusion Condition: Stable Discharge Diet: Cardiac Discharge Activity: Resume usual activity Coding Level of Care Code ED Fish Bait Processing Supervisor for Myrtle Freeman
[2023-02-21 11:15] LABS: Basophils # 0.1 10^3/uL (0.0-0.1); Basophils % 1.8 %; Eosinophils # 0.4 10^3/uL (0.0-0.8); Eosinophils % 6.3 %; Hematocrit 44.9 % (37.0-47.0); Hemoglobin 14.6 g/dL (11.5-15.3); Lymphocytes # 1.9 10^3/uL (0.8-4.8); Lymphocytes % 33.6 %; Mean Corpuscular HGB Conc 32.5 g/dL (30.0-36.0); Mean Corpuscular Hemoglobin 33.9 pg (28.0-34.0); Mean Corpuscular Volume 104.2 fl (81-99); Mean Platelet Volume 11.2 fL (7.4-10.4); Monocytes # 0.7 10^3/uL (0.2-0.9); Monocytes % 12.8 %; Neutrophils # 2.59 10^3/uL (1.8-7.7); Neutrophils % 45.3 %; Nucleated Red Blood Cells % 0 %; Platelet Count 246 10^3/cmm (130-400); Red Blood Count 4.31 10^6/uL (4.1-5.3); Red Cell Distribution Width 15.1 % (12.1-15.1); White Blood Count 5.7 10^3/uL (4.0-10.0)
[2023-02-21] MEDS: FUROsemide 10 mg/mL SDV 4mL 40 MG IVP ×2 (11:55→23:39)
--- NOTE | 2023-02-21 12:40 | ECG_ITS ---
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 Measurements Intervals [place] Rate: 65 P: 0 NM: 0 QRS: 79 QRSD: 114 T: 45 QT: 436 QTc: 455 Interpretive Statements ATRIAL FIBRILLATION WITH ABERRANT CONDUCTION OR VENTRICULAR PREMATURE COMPLEXES SEPTAL MYOCARDIAL INFARCTION , PROBABLY OLD [40+ ms Q WAVE IN V1/V2] Compared to ECG 02/21/2023 11:10:23 Ventricular premature complex(es) now present Aberrant conduction of supraventricular beat(s) now present Sinus rhythm no longer present Sinus arrhythmia no longer present Right bundle-branch block no longer present Myocardial infarct finding still present Electronically Signed On 02-22-2023 9:30:47 CDT by Meek Dodge M.D. [id number]
--- NOTE | 2023-02-21 13:04 | PC.NURSE ---
Assumed care of patient at 1300.
--- NOTE | 2023-02-21 13:13 | PC.NURSE ---
Pt hooked up to continuous bedside cardiac monitoring.
[2023-02-21 13:15] LABS: Troponin(5th) Baseline 23 ng/L (0-10)
[2023-02-21 13:22] LABS: Alanine Aminotransferase 8 U/L (0-33); Albumin Level 3.1 g/dL (3.5-5.2); Alkaline Phosphatase 142 U/L (35-105); Anion Gap 14.8 (5-19); Aspartate Amino Transferase 21 U/L (0-32); Blood Urea Nitrogen 12 mg/dL (8-23); Calcium 9.1 mg/dL (8.5-10.5); Carbon Dioxide 24 mmol/L (22-29); Chloride 103 mmol/L (98-107); Globulin 3.8 g/dL (1.3-4.6); Glucose 97 mg/dL (65-115); NT Pro B Type Natriuretic Pept 2490 pg/mL (0-450); Osmolality Calculated 286 mOsm/kg (285-295); Potassium 3.8 mmol/L (3.5-5.1); Sodium 138 mmol/L (136-145); Total Bilirubin 0.8 mg/dL (0.15-1.2); Total Protein 6.9 g/dL (6.6-8.7)
[2023-02-21 13:31] LABS: SARS Covid-2 Antigen negative (Negative)
[2023-02-21 14:41] LABS: Troponin 5 2HR 27.59 ng/L (0-10)
[2023-02-21 14:42] LABS: Troponin 5 2HR Delta 4.59 ABS# (0-10)
--- NOTE | 2023-02-21 16:35 | ECG_ITS ---
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 Measurements Intervals [place] Rate: 63 P: 99 [place]: 190 QRS: 72 QRSD: 107 T: 25 QT: 434 QTc: 445 Interpretive Statements SINUS RHYTHM WITH SINUS ARRHYTHMIA LOW QRS VOLTAGE IN PRECORDIAL LEADS [QRS DEFLECTION < 1.0 mV IN CHEST LEADS] INCOMPLETE RIGHT BUNDLE BRANCH BLOCK [90+ ms QRS DURATION, TERMINAL R IN V1/V2, 40+ ms S IN I/aVL/V4/V5/V6] SEPTAL MYOCARDIAL INFARCTION , PROBABLY OLD [40+ ms Q WAVE IN V1/V2] Compared to ECG 02/21/2023 12:40:49 Low QRS voltage now present Incomplete right bundle-branch block now present Atrial fibrillation no longer present Ventricular premature complex(es) no longer present Aberrant conduction of supraventricular beat(s) no longer present Myocardial infarct finding still present Electronically Signed On 02-22-2023 9:29:56 CDT by Meek Dodge M.D. [id number]
[2023-02-21 16:44] LABS: D Dimer 2.48 ug/mIFEU (0-0.59)
--- NOTE | 2023-02-21 16:45 | P.HP_ITS ---
Providers/Chief Complaint Admitting Physician: Marlena Wilde MD Primary Care Provider: Mohan Tovar MD Chief Complaint: sob History of Present Illness Ketty Quijano is a 87 year old female with a past medical history of hypertension, hyperlipidemia, pulmonary hypertension, history of pleural effusion in November 2022 which was transudative at that time. She presents to the hospital with increasing lower extremity swelling over the past 1 month and worsening dyspnea on exertion since last 1 week. She has a new oxygen requirement of 2 L/min supplemental O2. She has not had a fever cough chest pain or palpitations. On chest x-ray today she is found to have recurrence of her left-sided pleural effusion. Denies having any upper respiratory illness recently. She used to be on lisinopril/HCTZ in the past which was discontinued in November 2022. She has not been on a diet any diuretics since then. Echocardiogram at that time had revealed a normal ejection fraction and diastolic function but had evidence of pulmonary hypertension with PASP of 60 mmHg. Review of Systems General: Reports: 10 or more systems reviewed and unremarkable except in HPI and below Const: Denies: fever(s), chills or body aches Eyes: Denies: change in vision, blurry vision or photophobia ENMT: Reports: hoarseness; Denies: throat pain, enlarged tonsils, odynophagia or nasal congestion Card: Denies: chest pain, palpitations, irregular heart rhythm, edema, swelling of feet/ankles, lightheadedness, pre-syncope, dyspnea on exertion or orthopnea Resp: Denies: dyspnea, productive cough, non-productive cough, wheezing, stridor, pain on inspiration, change in phlegm color, hemoptysis or chest congestion GI: Denies: abdominal pain, nausea, vomiting, hematemesis, coffee ground emesis, dysphagia, heartburn, diarrhea, constipation, GI cramping, change in stool character, hematochezia or melena : Denies: flank pain, difficulty voiding, dysuria, urinary frequency, urinary urgency, urinary hesitancy or hematuria Musc: Denies: neck pain, back pain, extremity pain, joint swelling, joint warmth or deformity Neuro: Denies: headache(s), numbness in extremities, weakness in extremities, sensory changes, difficulty walking, frequent falls, dizziness, vertigo, behavioral changes, Slurred speech present or seizure-like activity Psych: Denies: anxiety, depression, suicidal ideation or homicidal ideation Endo: Denies: polyuria, polydipsia, tired all the time, cold intolerance or ho t flashes Cristofer/Lymph: Denies: easy bruising or easy bleeding Medications/Allergies Home Medications Medication Instructions Recorded Confirmed Last Taken Type hydrocodone 10 mg-acetaminophen 1 tab PO Q6H PRN Pain 02/13/22 02/21/23 2 Days Ago History 325 mg tablet ~03/06/22 escitalopram oxalate 10 mg tablet 10 mg PO QPM 11/10/22 02/21/23 02/20/23 History amlodipine 5 mg tablet 5 mg PO DAILY #30 tabs 11/13/22 02/21/23 02/21/23 Rx aspirin 81 mg tablet,delayed 81 mg PO DAILY #30 tabs 11/13/22 02/21/23 02/21/23 Rx release metoprolol tartrate 50 mg tablet 50 mg PO BID #60 tabs 11/13/22 02/21/23 02/21/23 Rx atorvastatin 40 mg tablet 40 mg PO QPM 02/21/23 02/21/23 02/20/23 History diphenhydramine HCl 50 mg capsule 50 mg PO BEDTIME PRN Sleep 02/21/23 02/21/23 02/20/23 History (Nightime Sleep) pantoprazole 40 mg tablet,delayed 40 mg PO DAILY 02/21/23 02/21/23 02/21/23 History release Allergies Allergy/AdvReac Type Severity Reaction Status Date / Time milk Allergy Unknown Verified 02/14/22 00:29 PFSH Acute PFSH: Medical History Acute kidney injury superimposed on chronic kidney disease REAGAN (acute kidney injury) Colitis Diverticular hemorrhage Diverticulitis Gastroenteritis History of sciatica Hypertension Nausea & vomiting Sepsis Sepsis associated hypotension Thrombocytopenia Social History Substance/Drug Use: never Vitals/I&O/Wt Last Vital Signs Temp 98.6 F 02/21/23 10:08 Pulse 67 02/21/23 16:30 Resp 19 H 02/21/23 13:48 BP 142/90 02/21/23 16:30 Pulse Ox 98 02/21/23 16:30 O2 Del Method Nasal Cannula 02/21/23 16:30 O2 Flow Rate 2 02/21/23 16:30 Weight last 48 hrs Weight 66.678 kg Physical Exam Narrative: General: No acute distress, AO x3 HEENT: PERRLA, pupils bilaterally equal and reactive, pallors not present Chest: reduced air entry left lung field CVS: S1-S2 regular, no murmurs, no tachycardia, no gallops, no rubs Abdomen: Soft, nontender, no organomegaly, bowel sounds present Neuro: No focal deficits, no facial deformity, AO x3, power 5/5 in all limbs Extremities: B/L LE 3+ pitting edema Data 02/21/23 11:00 02/21/23 11:50 Micro: XRay Report Signed Patient: Ketty Quijano Unit #: [id number] : 1935 Age/Sex: 87 / F ADM Date: 02/21/23 Loc: ER Room/Bed: Attending Dr: Ordering Provider/Ordering MD: Melissa Ch Date of Service: 02/21/23 Procedure(s): XR chest 2V* [id number] Accession Number(s): [id number] Report Number: [id number] WS: [id number] XR chest 2V* [id number] REASON FOR EXAM: Shortness of breath FINDINGS: The patient has redeveloped large left pleural effusion similar to 11/10/2022. Chest is otherwise unchanged compared to previous examination of 11/12/2022. IMPRESSION: Recurrent left pleural effusion. Launch?Image [address] [place] [address] CT Scan Report Signed Patient: Ketty Quijano Unit #: [id number] : 1935 Age/Sex: 87 / F ADM Date: 11/10/22 Loc: [facility] Room/Bed: [facility] Attending Dr: Red Cortez MD Ordering Provider/Ordering MD: Red Cortez MD Date of Service: 11/12/22 Procedure(s): CT chest wo con [id number] Accession Number(s): [id number] Report Number: [id number] WS: [id number] CT chest wo con [id number] HISTORY: Status post thoracentesis. Possible pneumonia. TECHNIQUE: Axial imaging performed through the thorax. Coronal and sagittal reformats are submitted.? All CT scans at [facility] use at least one of these dose optimization techniques: automated exposure control; mA and/or kV adjustment per patient size (includes targeted exams where dose is matched to clinical indication); or iterative reconstruction. CONTRAST: None DLP: 320.84 mGy.cm COMPARISON: None available. Lungs and central airway: Mild interstitial thickening in the periphery of both lungs. Very minimal small bilateral pleural effusions with compressive atelectasis at the lung bases. No pneumothorax. Consolidations are more consistent with atelectasis than pneumonia. Pleura: Very small bilateral pleural effusions. Heart and pericardium: Moderate cardiomegaly. Mediastinum and reginald: Small mediastinal and hilar lymph nodes. Vessels: Moderate atherosclerosis aorta. Bovine arch. Normal size pulmonary artery. Chest wall and lower neck: Mild soft tissue anasarca. Larger amount of subcutaneous edema along the LEFT lateral lower thorax and upper abdomen may be dependent edema. Upper abdomen: Mild perinephric stranding around the superior pole of each kidney. Osseous structures: Straightening of the normal thoracic kyphosis with scoliosi s. CT/CT chest wo con [id number] IMPRESSION: ? 1.? No pneumonia. 2.? Very small bilateral pleural effusions with compressive atelectasis at the lung bases. 3.? Soft tissue edema. ? Other data: Laboratory Results WBC 5.7 10^3/uL (4.0-10.0) 02/21/23 11:00 RBC 4.31 10^6/uL (4.1-5.3) 02/21/23 11:00 Hgb 14.6 g/dL (11.5-15.3) 02/21/23 11:00 Hct 44.9 % (37.0-47.0) 02/21/23 11:00 MCV 104.2 fl (81-99) H 02/21/23 11:00 MCH 33.9 pg (28.0-34.0) 02/21/23 11:00 MCHC 32.5 g/dL (30.0-36.0) 02/21/23 11:00 RDW 15.1 % (12.1-15.1) 02/21/23 11:00 Plt Count 246 10^3/cmm (130-400) 02/21/23 11:00 MPV 11.2 fL (7.4-10.4) H 02/21/23 11:00 Neut % (Auto) 45.3 % 02/21/23 11:00 Lymph % (Auto) 33.6 % 02/21/23 11:00 [place] % (Auto) 12.8 % 02/21/23 11:00 Eos % (Auto) 6.3 % 02/21/23 11:00 Baso % (Auto) 1.8 % 02/21/23 11:00 Neut # (Auto) 2.59 10^3/uL (1.8-7.7) 02/21/23 11:00 Lymph # (Auto) 1.9 10^3/uL (0.8-4.8) 02/21/23 11:00 [place] # (Auto) 0.7 10^3/uL (0.2-0.9) 02/21/23 11:00 Eos # (Auto) 0.4 10^3/uL (0.0-0.8) 02/21/23 11:00 Baso # (Auto) 0.1 10^3/uL (0.0-0.1) 02/21/23 11:00 Nucleated RBC % (auto) 0 % 02/21/23 11:00 Nucleated RBCs # 0.0 /100WBC 02/21/23 11:00 D-Dimer 2.48 ug/mIFEU (0-0.59) H 02/21/23 11:50 Sodium 138 mmol/L (136-145) 02/21/23 11:50 Potassium 3.8 mmol/L (3.5-5.1) 02/21/23 11:50 Chloride 103 mmol/L (98-107) 02/21/23 11:50 Carbon Dioxide 24 mmol/L (22-29) 02/21/23 11:50 Anion Gap 14.8 (5-19) 02/21/23 11:50 BUN 12 mg/dL (8-23) 02/21/23 11:50 Creatinine 1.1 mg/dL (0.5-0.9) H 02/21/23 11:50 GFR Calculation Not Reportable 02/21/23 11:50 Glucose 97 mg/dL (65-115) 02/21/23 11:50 Calculated Osmolality 286 mOsm/kg (285-295) 02/21/23 11:50 Calcium 9.1 mg/dL (8.5-10.5) 02/21/23 11:50 Total Bilirubin 0.8 mg/dL (0.15-1.2) 02/21/23 11:50 AST 21 U/L (0-32) 02/21/23 11:50 ALT 8 U/L (0-33) 02/21/23 11:50 Alkaline Phosphatase 142 U/L (35-105) H 02/21/23 11:50 Troponin T Baseline 23 ng/L (0-10) H 02/21/23 11:50 Troponin T 120 Minute 27.59 ng/L (0-10) H 02/21/23 14:10 Delta Troponin T 4.59 ABS# (0-10) 02/21/23 14:10 NT-Pro-B Natriuret Pep 2490 pg/mL (0-450) H 02/21/23 11:50 Total Protein 6.9 g/dL (6.6-8.7) 02/21/23 11:50 Albumin 3.1 g/dL (3.5-5.2) L 02/21/23 11:50 Globulin 3.8 g/dL (1.3-4.6) 02/21/23 11:50 SARS-CoV-2 Ag (Rapid) negative (Negative) 02/21/23 13:09 A&P Assessment and plan (1) Recurrent left pleural effusion: (2) Dizziness on standing: (3) Pulmonary hypertension: (4) CKD (chronic kidney disease) stage 3, GFR 30-59 ml/min: (5) Acute exacerbation of CHF (congestive heart failure): Plan 87-year-old lady with recurrent left pleural effusion and increasing lower extremity edema over the past month. Presenting today with dyspnea, new oxygen requirement of 2 L/min Chest x-ray shows large left-sided pleural effusion. 3+ pitting edema bilateral lower extremities. Etiology suspected to be acute on chronic CHF with preserved ejection fraction versus pulmonary hypertension. On a previous echocardiogram from November 2022 she was noted to have PASP of 60. She has not been on any diuretics since her last discharge. Will arrange for thoracentesis with radiology in the a.m. cause of pulmonary hypertension not entirely clear. She does not have any known history of COPD. She has been exposed to secondhand throughout her life. Will check D-dimer to assess for possibility of chronic VTE as potentially contributing Check lower extremity Doppler to evaluate for DVT though suspicion appears to be low given bilateral symmetric lower extremity swelling. Start Lasix 40 mg IV every 12 hours Pleural fluid analysis culture after thoracentesis tomorrow Continue monitor renal function and in and out Place White cathete for accurate output assessment, patient is incontinent Continue home medications including metoprolol, aspirin, atorvastatin. DVT prophylaxis: Lovenox DNR/DNI This documentation was created by [employer] assistant portfolio manager software. Every effort was made to ensure accuracy of assistant portfolio manager. Any obvious errors or omissions should be clarified with the author of the document. Attestations Medical Necessity Statement*: Anticipate greater than 2 midnight admission for IV diuresis, large pleural effusion needing thoracentesis, new oxygen requirement with hypoxia. Time Spent in Patient Care: Greater than 35 minutes Coding Level of Care Code Acute Code for Chg Fwd High MDM includes number and complexity of problems actively addressed during encounter, amount and/or complexity of data reviewed/ordered and described risk of complication, morbidity or mortality of management as documented Diagnoses Recurrent left pleural effusion J90 Dizziness on standing R42 Pulmonary hypertension I27.20 CKD (chronic kidney disease) stage 3, GFR 30-59 ml/min N18.30 Acute exacerbation of CHF (congestive heart failure) I50.9
--- NOTE | 2023-02-21 16:46 | USCV_ITS ---
Ketty Quijano Age: 87 Gender: F : 1935 Exam Date: 02/21/2023 18:40 Ordering Phys: Marlena Wilde MD Technologist: VIVI [place] [facility] [place]: 3+ pitting edema Bilateral lower extremities. No history of DVT per patient. HISTORY: 3+ pitting edema Bilateral lower extremities. No history of DVT per patient. PROCEDURES: Venous duplex imaging was performed in bilateral lower extremities. The following venous structures were evaluated: common femoral vein, profunda vein, proximal portion of the greater saphenous vein, superficial femoral vein, and the popliteal vein. In addition, the posterior tibial veins were evaluated. Serial compression, augmentation maneuvers, and spectral Doppler flow evaluation were performed, which were normal. Bilaterally, the common femoral, superficial femoral, profunda femoral, popliteal, posterior tibial, and greater saphenous veins were identified and interrogated in the standard fashion. These veins were found to be easily compressible with spontaneous blood flow. No evidence of thrombus noted. CONCLUSIONS No evidence of right lower extremity DVT. No evidence of left lower extremity DVT. Gigi Fletcher MD (Electronically Signed) Final Date: 22 February 2023 08:36 S
[2023-02-21] MEDS: escitalopram 10 mg Tablet PO (18:58)
[2023-02-21] MEDS: atorvastatin 40 mg Tablet PO (18:58)
[2023-02-21] MEDS: enoxaparin 40 mg/0.4 mL Syringe SUBCUT (18:58)
[2023-02-21] MEDS: metoprolol tartrate 50 mg Tablet 25 MG PO (18:58)
[2023-02-21 19:50] LABS: INR 1.09 (0.8-1.2)
[2023-02-21 19:54] LABS: Troponin 5 6HR 23.22 ng/L (0-10)
[2023-02-21 20:03] LABS: Troponin 5 6HR Delta 0.22 ng/L (0-12)
[2023-02-22] VITALS (9 sets, daily range): BP systolic 91–125; BP diastolic 48–77; PULSE 58–103; RESP 16–18; TEMP 36.5–36.8; O2SAT 93–98
[2023-02-22] MEDS: acetaminophen 325 mg Tablet 650 MG PO ×2 (03:21→19:35)
[2023-02-22 05:00] LABS: Basophils # 0.1 10^3/uL (0.0-0.1); Basophils % 1.4 %; Eosinophils # 0.3 10^3/uL (0.0-0.8); Eosinophils % 6.2 %; Hematocrit 38.1 % (37.0-47.0); Hemoglobin 12.3 g/dL (11.5-15.3); Lymphocytes # 1.9 10^3/uL (0.8-4.8); Lymphocytes % 37.2 %; Mean Corpuscular HGB Conc 32.3 g/dL (30.0-36.0); Mean Corpuscular Hemoglobin 33.1 pg (28.0-34.0); Mean Corpuscular Volume 102.4 fl (81-99); Mean Platelet Volume 10.9 fL (7.4-10.4); Monocytes # 0.8 10^3/uL (0.2-0.9); Neutrophils # 2.01 10^3/uL (1.8-7.7); Nucleated Red Blood Cells % 0 %; Platelet Count 188 10^3/cmm (130-400); Red Blood Count 3.72 10^6/uL (4.1-5.3); Red Cell Distribution Width 14.8 % (12.1-15.1); White Blood Count 5.1 10^3/uL (4.0-10.0)
[2023-02-22 05:18] LABS: Alanine Aminotransferase < 5 U/L (0-33); Albumin Level 2.4 g/dL (3.5-5.2); Alkaline Phosphatase 107 U/L (35-105); Anion Gap 12.8 (5-19); Aspartate Amino Transferase 19 U/L (0-32); Blood Urea Nitrogen 13 mg/dL (8-23); Calcium 8.8 mg/dL (8.5-10.5); Carbon Dioxide 30 mmol/L (22-29); Chloride 99 mmol/L (98-107); Globulin 3.2 g/dL (1.3-4.6); Glucose 71 mg/dL (65-115); Osmolality Calculated 285 mOsm/kg (285-295); Potassium 3.8 mmol/L (3.5-5.1); Sodium 138 mmol/L (136-145); Total Bilirubin 0.7 mg/dL (0.15-1.2); Total Protein 5.6 g/dL (6.6-8.7)
--- NOTE | 2023-02-22 07:00 | US_ITS ---
WS: [id number] ULTRASOUND-GUIDED THORACENTESIS, left HISTORY: large pleural effusion Procedure, risks, and complications were explained to the patient. With the patient in an upright pos ition, the skin over the left posterior thorax was cleansed with ChloraPrep and anesthetized with 1% buffered lidocaine. A 5 Austrian Yueh needle is inserted into the pleural fluid without complication. A pproximately 1200 cc of clear yellow pleural fluid is removed without difficulty. Pleural fluid specimen collected for analysis as requested. IMPRESSION: 1. Left thoracentesis yielding 1200 cc of fluid. 2. Chest radiograph to follow to evaluate for pneumothorax.
[2023-02-22] MEDS: aspirin 81 mg EC Tablet PO (08:05)
[2023-02-22] MEDS: metoprolol tartrate 50 mg Tablet 25 MG PO ×2 (08:05→17:36)
[2023-02-22] MEDS: pantoprazole DR 40 mg Tablet PO (08:05)
--- NOTE | 2023-02-22 10:21 | XR_ITS ---
WS: [id number] XR chest 1V portable [id number] REASON FOR EXAM: post thoracentesis FINDINGS: Significant reduction of previously demonstrated left pleural effusion. There is no left pneumothorax. The right chest is unchanged compared to 02/21/2023. No other interval change or new finding. IMPRESSION: Post left thoracentesis without complication.
[2023-02-22 10:54] LABS: Apprearance, Body Fluid CLEAR; Color, Body Fluid PALE YELLOW; Cyto Order Verification No Order
[2023-02-22 10:57] LABS: Body Fluid Polynuclear #Cells 0.006; Body Fluid WBC 269 /uL; Monocytes # Body Fluid 0.263; RBC, Body Fluid 0 10^3/uL
[2023-02-22 11:23] LABS: Fluid Laterality LEFT THORACENTESIS; LDH Body Fluid 66 U/L; Total Protein Pleural Fluid 2.4 g/dL; Uric Acid Body Fluid 6 mg/dL
[2023-02-22 11:24] LABS: Albumin Body Fluid 1.4 g/dL; Cholesterol Body Fluid 27 mg/dL (0-200); PATH Referral YES
[2023-02-22] MEDS: FUROsemide 10 mg/mL SDV 4mL 40 MG IVP (11:42)
--- NOTE | 2023-02-22 15:05 | P.PN_ITS ---
Subjective Subjective: Patient underwent thoracentesis today with removal of 1200 cc fluid. Pleural fluid analysis shows total protein of 2.4, LDH 66, does not appear to be exudative effusion. Feels better since her thoracentesis.requiring supplemental O2 at 2 L/min. Lower extremity edema is improving. However her skin is dry and large today, appearing to be dehydrated. Medications: Reviewed: Yes Vitals/I&O/Wt Last Vital Signs Temp 98.1 F 02/22/23 12:00 Pulse 103 H 02/22/23 12:00 Resp 16 02/22/23 12:00 BP 97/56 02/22/23 12:00 Pulse Ox 93 02/22/23 12:00 O2 Del Method Nasal Cannula 02/22/23 12:00 O2 Flow Rate 2 02/22/23 08:00 02/22/23 02/22/23 02/22/23 06:59 14:59 22:59 Intake Total 200 / 200 720 / 720 Output Total 1350 / 1350 Balance -1150 / -1150 720 / 720 Weight last 48 hrs Weight 66.678 kg Physical Exam Narrative: General: No acute distress, AO x3 HEENT: PERRLA, pupils bilaterally equal and reactive, pallors not present Chest: reduced air entry left lung field CVS: S1-S2 regular, no murmurs, no tachycardia, no gallops, no rubs Abdomen: Soft, nontender, no organomegaly, bowel sounds present Neuro: No focal deficits, no facial deformity, AO x3, power 5/5 in all limbs Extremities: B/L LE 2+ pitting edema Urinary Catheter Management: White: Cath Placed During This Visit: yes Reason for Continuing Indwelling Catheter: Other Urinary Catheter Date of Insertion: 02/22/23 Urinary Catheter Time of Insertion: 00:52 Data 02/22/23 04:41 02/22/23 04:41 A&P Assessment and plan (1) Recurrent left pleural effusion: (2) Dizziness on standing: (3) Pulmonary hypertension: (4) CKD (chronic kidney disease) stage 3, GFR 30-59 ml/min: (5) Acute exacerbation of CHF (congestive heart failure): Plan 87-year-old lady with recurrent left pleural effusion and increasing lower extremity edema over the past month. Presenting with dyspnea, new oxygen requirement of 2 L/min. Chest x-ray shows large left-sided pleural effusion, s/p thoracentesis today with removal of 1200 cc pleural fluid Pleural fluid analysis shows transudate effusion. Etiology suspected to be acute on chronic CHF with preserved ejection fraction versus pulmonary hypertension. On a previous echocardiogram from November 2022 she was noted to have PASP of 60. cause of pulmonary hypertension not entirely clear. She does not have any known history of COPD. She has been exposed to secondhand throughout her life. D dimer elevated at 2.48, will obtain CTA chest for possibility of chronic VTE as potentially contributing Change Lasix 40 mg IV every 12 hours to po lasix 40mg daily. patient's skin and mucus membranes appears to be dehydrated. Continue home medications including metoprolol, aspirin, atorvastatin. DVT prophylaxis: Lovenox DNR/DNI This documentation was created by [employer] rib trim separator software. Every effort was made to ensure accuracy of rib trim separator. Any obvious errors or omissions should be clarified with the author of the document. Attestations Medical Necessity Statement*: CTA today, change iv to oral lasix , monitor I/O and renal function Coding Level of Care Code Acute Code for Chg Fwd Diagnoses Recurrent left pleural effusion J90 Dizziness on standing R42 Pulmonary hypertension I27.20 CKD (chronic kidney disease) stage 3, GFR 30-59 ml/min N18.30 Acute exacerbation of CHF (congestive heart failure) I50.9
--- NOTE | 2023-02-22 15:06 | CTR_ITS ---
PROCEDURE INFORMATION: Exam: CTA Chest With Contrast Exam date and time: 02/22/2023 5:49 PM Age: 87 years old Clinical indication: Shortness of breath; Additional info: Evaluate for pe, pulmonary hypertension, recurrent pleural effusion, hypoxia, TECHNIQUE: Imaging protocol: Computed tomographic angiography of the chest with contrast. Exam focused on the arteries. 3D rendering (Not supervised by radiologist): MIP and/or 3D reconstructed images were created by the technologist. Radiation optimization: All CT scans at this facility use at least one of these dose optimization techniques: automated exposure control; mA and/or kV adjustment per patient size (includes targeted exams where dose is matched to clinical indication); or iterative reconstruction. Contrast material: OMNI 350; Contrast volume: 100 ml; Contrast route: INTRAVENOUS (IV); REPORTING DATA: Count of CT and Cardiac NM exams in prior 12 months: This patient has received 5 known CTs and 0 known cardiac nuclear medicine studies in the 12 months prior to the current study. COMPARISON: CT chest wo con [id number] 11/12/2022 3:20 PM RADIATION DOSE METRICS: Total DLP (mGy-cm): 291.87 FINDINGS: Pulmonary arteries: Normal. No pulmonary emboli. Aorta: Unremarkable. No aortic aneurysm. No aortic dissection. Lungs: Dependent atelectasis in both lungs. Mild mosaic attenuation in both lungs, consistent with air trapping. Interstitial prominence in the lung bases. Calcified granulomas in both lungs. Pleural spaces: Medium right and small left pleural effusions. No pleural thickening. No pneumothorax. Heart: The heart size is upper normal. Coronary arteries: Coronary artery calcifications. Lymph nodes: Prominent mediastinal and hilar lymph nodes are most likely reactive. Calcified mediastinal and right hilar lymph nodes. Liver: Calcified granulomas in the liver. Bones/joints: Degenerative changes and mild curvature of the spine. No acute fracture. Soft tissues: Mild body wall edema. CT/CT angio chest PE protcl [id number] IMPRESSION: 1. No evidence for pulmonary embolus. 2. Medium right and small right pleural effusions. 3. Scattered atelectasis with possible mild interstitial pulmonary edema. 4. Mild body wall edema.
[2023-02-22] MEDS: atorvastatin 40 mg Tablet PO (17:36)
[2023-02-22] MEDS: escitalopram 10 mg Tablet PO (17:36)
[2023-02-22] MEDS: enoxaparin 40 mg/0.4 mL Syringe SUBCUT (17:37)
[2023-02-22] MEDS: iohexol 350 mg/mL 500 mL Btl (per mL) IV (17:49)
[2023-02-23] VITALS (9 sets, daily range): BP systolic 86–120; BP diastolic 54–73; PULSE 60–91; RESP 15–19; TEMP 36.4–36.9; O2SAT 87–98
[2023-02-23] MEDS: HYDROcodone-acetaminophen 10-325 mg Tablet 1 TAB PO ×2 (00:17→08:31)
[2023-02-23 05:51] LABS: Basophils # 0.1 10^3/uL (0.0-0.1); Basophils % 1.1 %; Eosinophils # 0.3 10^3/uL (0.0-0.8); Eosinophils % 7.4 %; Hematocrit 39.1 % (37.0-47.0); Hemoglobin 12.3 g/dL (11.5-15.3); Lymphocytes # 2.2 10^3/uL (0.8-4.8); Lymphocytes % 46.9 %; Mean Corpuscular HGB Conc 31.5 g/dL (30.0-36.0); Mean Corpuscular Hemoglobin 32.5 pg (28.0-34.0); Mean Corpuscular Volume 103.4 fl (81-99); Mean Platelet Volume 11.4 fL (7.4-10.4); Monocytes # 0.8 10^3/uL (0.2-0.9); Monocytes % 17.9 %; Neutrophils # 1.21 10^3/uL (1.8-7.7); Neutrophils % 26.5 %; Nucleated Red Blood Cells % 0 %; Platelet Count 175 10^3/cmm (130-400); Red Blood Count 3.78 10^6/uL (4.1-5.3); Red Cell Distribution Width 14.7 % (12.1-15.1); White Blood Count 4.6 10^3/uL (4.0-10.0)
[2023-02-23 06:18] LABS: Alanine Aminotransferase < 5 U/L (0-33); Albumin Level 2.5 g/dL (3.5-5.2); Alkaline Phosphatase 111 U/L (35-105); Anion Gap 10.7 (5-19); Aspartate Amino Transferase 17 U/L (0-32); Blood Urea Nitrogen 17 mg/dL (8-23); Calcium 8.2 mg/dL (8.5-10.5); Carbon Dioxide 33 mmol/L (22-29); Chloride 97 mmol/L (98-107); Globulin 2.6 g/dL (1.3-4.6); Glucose 90 mg/dL (65-115); Osmolality Calculated 285 mOsm/kg (285-295); Potassium 3.7 mmol/L (3.5-5.1); Sodium 137 mmol/L (136-145); Total Bilirubin 0.6 mg/dL (0.15-1.2); Total Protein 5.1 g/dL (6.6-8.7)
[2023-02-23] MEDS: pantoprazole DR 40 mg Tablet PO (08:26)
[2023-02-23] MEDS: metoprolol tartrate 50 mg Tablet 25 MG PO (08:26)
[2023-02-23] MEDS: aspirin 81 mg EC Tablet PO (08:27)
[2023-02-23] MEDS: FUROsemide 40 mg Tablet PO (08:27)
--- NOTE | 2023-02-23 13:22 | P.DS_ITS ---
Discharge Providers Date of Admission: 02/21/23 13:58 Date of Discharge: February 23, 2023 Attending Provider at Admission: Marlena Wilde MD Attending Provider at Discharge: Marlena Wilde MD Primary Care Provider: Mohan Tovar MD Diagnoses at Discharge Discharge Diagnosis (1) Recurrent left pleural effusion: Status: Acute (2) Dizziness on standing: Status: Acute (3) Pulmonary hypertension: Status: Acute (4) CKD (chronic kidney disease) stage 3, GFR 30-59 ml/min: Status: Acute (5) Acute exacerbation of CHF (congestive heart failure): Status: Acute Reason for Visit Reason for Visit: sob Hospital Course Hospital Course Ketty Quijano is a 87 year old female with a past medical history of hypertension, hyperlipidemia, pulmonary hypertension, history of pleural effusion in November 2022. She presents to the hospital with increasing lower extremity swelling over the past 1 month and worsening dyspnea on exertion since last 1 week.? She has a new oxygen requirement of 2 L/min supplemental O2.? She has not had a fever cough chest pain or palpitations.On chest x-ray today she is found to have recurrence of her left-sided pleural effusion. She underwent thoracentesis on 02/22 with removal of 1200 cc pleural fluid . Pleural fluid analysis shows transudate effusion. Gram stain without any organisms. She also received diuresis with lasix 40mg iv q12h initially, changed to 40mg po daily at discharge. Home lower extremity edema is improving significantly at the time of discharge. She feels much improved after the thoracentesis yesterday. She is net negative by 2.1 L at the time of discharge. Prior echocardiogram shows signs of pulmonary hypertension with PASP of 60 mmHg. Denies a past history of COPD. Differentials for her recurrent pleural effusion heart failure with preserved ejection fraction versus pulmonary hypertension. CT a of the chest was performed to evaluate for chronic VTE to potentially explain hypoxia and right-sided elevated pressures. CTA was negative for the same. Also did not show any underlying pneumonia or masses. Dose of her metoprolol was adjusted from 50 mg twice daily to 25 mg twice daily due to bradycardia with heart rate in the 50s. Home oxygen evaluation was completed prior to discharge. Physical Exam Narrative: General: No acute distress, AO x3 HEENT: PERRLA, pupils bilaterally equal and reactive, pallors not present Chest: Normal vesicular breath sounds, no added sounds, equal good air entry bilaterally CVS: S1-S2 regular, no murmurs, no tachycardia, no gallops, no rubs Abdomen: Soft, nontender, no organomegaly, bowel sounds present Neuro: No focal deficits, no facial deformity, AO x3, power 5/5 in all limbs Urinary Catheter Management: White: Cath Placed During This Visit: yes Reason for Continuing Indwelling Catheter: Other Urinary Catheter Date of Insertion: 02/22/23 Urinary Catheter Time of Insertion: 00:52 Discharge Data Studies Completed and Pending Completed Studies During Hospitalization Category Date Time Status CTA PE [CT angio chest PE protcl [id number]] Routine Cat Scan 02/22/23 15:06 Completed CXRP [XR chest 1V portable [id number]] Urgent Exams 02/22/23 10:21 Completed XR chest 2V* [id number] Stat Exams 02/21/23 10:34 [place] [id number] Routine Ultrasound 02/21/23 16:46 Completed US thoracentesis [id number] Routine Ultrasound 02/22/23 07:00 Completed Pending at discharge Category Date Time Status Anaerobic Culture Routine Lab 02/21/23 10:30 Received Body Fluid Culture & GS Routine Lab 02/21/23 10:30 Results Radiology Impressions Chest CTA 02/22/23 15:06 IMPRESSION: 1. No evidence for pulmonary embolus. 2. Medium right and small right pleural effusions. 3. Scattered atelectasis with possible mild interstitial pulmonary edema. 4. Mild body wall edema. Laboratory Results WBC 4.6 10^3/uL (4.0-10.0) 02/23/23 05:03 RBC 3.78 10^6/uL (4.1-5.3) L 02/23/23 05:03 Hgb 12.3 g/dL (11.5-15.3) 02/23/23 05:03 Hct 39.1 % (37.0-47.0) 02/23/23 05:03 MCV 103.4 fl (81-99) H 02/23/23 05:03 MCH 32.5 pg (28.0-34.0) 02/23/23 05:03 MCHC 31.5 g/dL (30.0-36.0) 02/23/23 05:03 RDW 14.7 % (12.1-15.1) 02/23/23 05:03 Plt Count 175 10^3/cmm (130-400) 02/23/23 05:03 MPV 11.4 fL (7.4-10.4) H 02/23/23 05:03 Neut % (Auto) 26.5 % 02/23/23 05:03 Lymph % (Auto) 46.9 % 02/23/23 05:03 [place] % (Auto) 17.9 % 02/23/23 05:03 Eos % (Auto) 7.4 % 02/23/23 05:03 Baso % (Auto) 1.1 % 02/23/23 05:03 Neut # (Auto) 1.21 10^3/uL (1.8-7.7) L 02/23/23 05:03 Lymph # (Auto) 2.2 10^3/uL (0.8-4.8) 02/23/23 05:03 [place] # (Auto) 0.8 10^3/uL (0.2-0.9) 02/23/23 05:03 Eos # (Auto) 0.3 10^3/uL (0.0-0.8) 02/23/23 05:03 Baso # (Auto) 0.1 10^3/uL (0.0-0.1) 02/23/23 05:03 Nucleated RBC % (auto) 0 % 02/23/23 05:03 Nucleated RBCs # 0.0 /100WBC 02/23/23 05:03 Differential Comment Yes 02/21/23 10:30 PT 14.50 SECONDS (12.1-14.9) 02/21/23 18:18 INR 1.09 (0.8-1.2) 02/21/23 18:18 D-Dimer 2.48 ug/mIFEU (0-0.59) H 02/21/23 11:50 Sodium 137 mmol/L (136-145) 02/23/23 05:03 Potassium 3.7 mmol/L (3.5-5.1) 02/23/23 05:03 Chloride 97 mmol/L (98-107) L 02/23/23 05:03 Carbon Dioxide 33 mmol/L (22-29) H 02/23/23 05:03 Anion Gap 10.7 (5-19) 02/23/23 05:03 BUN 17 mg/dL (8-23) 02/23/23 05:03 Creatinine 1.3 mg/dL (0.5-0.9) H 02/23/23 05:03 GFR Calculation Not Reportable 02/23/23 05:03 Glucose 90 mg/dL (65-115) 02/23/23 05:03 Calculated Osmolality 285 mOsm/kg (285-295) 02/23/23 05:03 Calcium 8.2 mg/dL (8.5-10.5) L 02/23/23 05:03 Total Bilirubin 0.6 mg/dL (0.15-1.2) 02/23/23 05:03 AST 17 U/L (0-32) 02/23/23 05:03 ALT < 5 U/L (0-33) 02/23/23 05:03 Alkaline Phosphatase 111 U/L (35-105) H 02/23/23 05:03 Troponin T Baseline 23 ng/L (0-10) H 02/21/23 11:50 Troponin T 120 Minute 27.59 ng/L (0-10) H 02/21/23 14:10 Delta Troponin T 4.59 ABS# (0-10) 02/21/23 14:10 Troponin T Hi Sens 6Hr 23.22 ng/L (0-10) H 02/21/23 18:18 Troponin T Hi Sens 6Hr Delta 0.22 ng/L (0-12) 02/21/23 18:18 NT-Pro-B Natriuret Pep 2490 pg/mL (0-450) H 02/21/23 11:50 Total Protein 5.1 g/dL (6.6-8.7) L 02/23/23 05:03 Albumin 2.5 g/dL (3.5-5.2) L 02/23/23 05:03 Globulin 2.6 g/dL (1.3-4.6) 02/23/23 05:03 Fluid Color Pale yellow 02/21/23 10:30 Fluid Appearance Clear 02/21/23 10:30 Fluid Specific Grav 1.010 02/21/23 10:30 Fluid pH 8.0 02/21/23 10:30 Fluid WBC 269 /uL 02/21/23 10:30 Fluid RBC 0 10^3/uL 02/21/23 10:30 Fld Polynuclear WBCs # 0.006 02/21/23 10:30 Fld Polynuclear WBCs % 2.200 % 02/21/23 10:30 Fl Mononucl WBCs #(Auto) 0.263 02/21/23 10:30 Fl Mononuclear % Auto 97.800 % 02/21/23 10:30 Fld Crystal Laterality Left thoracentesis 02/21/23 10:30 Fluid Glucose 89.0 mg/dL 02/21/23 10:30 Fluid Albumin 1.4 g/dL 02/21/23 10:30 Fluid LDH 66 U/L 02/21/23 10:30 Fluid Cholesterol 27 mg/dL (0-200) 02/21/23 10:30 Fluid Uric Acid 6 mg/dL 02/21/23 10:30 Pleural Total Protein 2.4 g/dL 02/21/23 10:30 SARS-CoV-2 Ag (Rapid) negative (Negative) 02/21/23 13:09 Vitals Last Vital Signs Temp 97.7 F 02/23/23 11:15 Pulse 61 02/23/23 11:15 Resp 16 02/23/23 11:15 BP 101/59 02/23/23 12:25 Pulse Ox 98 02/23/23 11:15 O2 Del Method Nasal Cannula 02/23/23 11:15 O2 Flow Rate 2 02/23/23 08:00 Discharge Plan Discharge Patient Disposition: Home Health Service Condition: Stable Prescriptions: New furosemide [Lasix] 20 mg tablet 20 mg PO DAILY 60 Days Qty: 60 0RF Continued hydrocodone-acetaminophen 10-325 mg tablet 1 tab PO Q6H PRN (Reason: Pain) escitalopram oxalate 10 mg tablet 10 mg PO QPM amlodipine 5 mg Tablet 5 mg PO DAILY Qty: 30 0RF aspirin 81 mg Tablet,Delayed Release (Dr/Ec) 81 mg PO DAILY Qty: 30 0RF atorvastatin 40 mg tablet 40 mg PO QPM Nightime Sleep 50 mg Capsule 50 mg PO BEDTIME PRN (Reason: Sleep) pantoprazole 40 mg tablet,delayed release (DR/EC) 40 mg PO DAILY Changed metoprolol tartrate 50 mg Tablet 25 mg PO BID Qty: 60 0RF Discharge Orders: Discharge Order (Routine); Ordered 02/23/23 Ordered By: Marlena Wilde Other Ambulatory Orders: Comprehensive Metabolic Panel (Routine) Timeframe: [id number] Facility: [facility] - Location: Lab - Main Lab Ordered By: Marlena Wilde Ref[place]: [facility] [place]) [Outside] Mohan Tovar MD [Primary Care Provider] - 1 week Discharge Diet: Cardiac Discharge Activity: Resume usual activity Patient Instructions: Opioid Safety Activity Restrictions/Additional Instructions: Use lasix 40mg daily for next 3 days, then reduce dose to lasix 20mg po daily. reduce dose of metoprolol to 25mg BID Discharge Attestations Time Spent in Discharge Care*: greater than 30 min Status at Discharge: Cognitive status at discharge: cognitively intact , Behavioral status at discharge: cooperative , Quality Metrics Clinical Quality Measures [ No reported AMI, CVA or VTE this stay] Coding Level of Care Code Acute Code for Chg Fwd Total time (in minutes) for Discharge: 45 Diagnoses Recurrent left pleural effusion J90 Dizziness on standing R42 Pulmonary hypertension I27.20 CKD (chronic kidney disease) stage 3, GFR 30-59 ml/min N18.30 Acute exacerbation of CHF (congestive heart failure) I50.9
== END 2023-02-23 15:59 | disposition home health service (06) | DRG 293 ==
LOC: ER 13:57 → MEDSURG 16:37
PROVIDERS: Nurse Practitioner Family; Admitting Provider Student in an Organized Health Care Education/Training Program; Emergency Provider Emergency Medicine; PCP Family Medicine; Visit Provider Student in an Organized Health Care Education/Training Program
DX: I13.0 Hypertensive heart and chronic kidney disease with heart failure and stage 1 through stage 4 chronic kidney disease, or unspecified chronic kidney disease (principal); N18.30 Chronic kidney disease, stage 3 unspecified; I50.9 Heart failure, unspecified; Z79.82 Long term (current) use of aspirin; E78.5 Hyperlipidemia, unspecified; I27.20 Pulmonary hypertension, unspecified
CPT/HCPCS: 32555; 36415; 51702; 71045; 71046; 71275; 80053; 80503; 82042; 82465; 82945; 83615; 83880; 83986; 84157; 84315; 84484; 84560; 85025; 85378; 85610; 87070; 87075; 87205; 87426; 89050; 93005; 93970; 94760; 96372; 96374; 96376; 99285; J1650; J1940; Q9967

== ENCOUNTER 2023-11-03 09:26 | Emergency (ER) | payer MEDICARE, SELFPAY ==
[2023-11-03] VITALS (15 sets, daily range): BP systolic 103–133; BP diastolic 52–67; PULSE 75–80; RESP 16–17; TEMP 36.7; O2SAT 90–98; BMI 31.2
--- NOTE | 2023-11-03 09:38 | CTR_ITS ---
PROCEDURE INFORMATION: Exam: CT Abdomen And Pelvis Without Contrast Exam date and time: 11/03/2023 10:29 AM Age: 88 years old Clinical indication: Abdominal pain; Additional info: Abd pain TECHNIQUE: Imaging protocol: Computed tomography of the abdomen and pelvis without contrast. Radiation optimization: All CT scans at this facility use at least one of these dose optimization techniques: automated exposure control; mA and/or kV adjustment per patient size (includes targeted exams where dose is matched to clinical indication); or iterative reconstruction. COMPARISON: CT abdomen pelvis w con* [id number] 03/18/2022 6:54 PM RADIATION DOSE METRICS: Total DLP (mGy-cm): 617.52 FINDINGS: Lungs: Scarring and atelectasis at the lung bases. Pleural spaces: Small left pleural effusion. Heart: No pericardial effusion. Coronary arteries: Coronary arterial calcifications are seen. Esophagus: There is mild fluid in the distal esophagus. Liver: The liver is unremarkable. Gallbladder and bile ducts: Cholelithiasis with distended gallbladder. The common bile duct measures up to 8.9 mm. Pancreas: There is peripancreatic stranding suspicious for acute pancreatitis. Correlate with serum amylase and lipase. Spleen: The spleen is unremarkable. Adrenal glands: The adrenal glands are unremarkable. Kidneys and ureters: The kidneys are unremarkable. Stomach and bowel: Wall thickening of the duodenum and proximal jejunum is likely reactive. Enteritis is a consideration. Colonic diverticulosis without evidence of acute diverticulitis. Appendix: The appendix is unremarkable. Intraperitoneal space: No free intraperitoneal air. Vasculature: No abdominal aortic aneurysm. Lymph nodes: No retroperitoneal lymphadenopathy. Urinary bladder: Ventral pelvic hernia containing part of the bladder. Reproductive: Status post hysterectomy. Bones/joints: Extensive degenerative changes are seen in the lumbar spine. No acute fracture is seen. Soft tissues: A more superior ventral fat containing pelvic hernia is seen. CT/CT abdomen pelvis wo con [id number] IMPRESSION: 1. Peripancreatic stranding suspicious for acute pancreatitis. Correlate with serum amylase and lipase. 2. Wall thickening of the duodenum and proximal jejunum is likely reactive. Enteritis is a consideration. 3. Cholelithiasis with distended gallbladder. The common bile duct measures up to 8.9 mm. Recommend ultrasound to further assess. 4. Colonic diverticulosis without evidence of acute diverticulitis. 5. Small left pleural effusion. 6. Coronary artery disease. 7. Mild fluid in the distal esophagus.
[2023-11-03 09:58] LABS: Basophils % 0.3 %; Eosinophils % 0.1 %; Hematocrit 41.9 % (36-47); Lymphocytes # 0.9 10^3/uL (0.8-4.8); Lymphocytes % 5.7 %; Mean Corpuscular HGB Conc 32.5 g/dL (30-55); Mean Corpuscular Hemoglobin 32.6 pg (27-33); Mean Corpuscular Volume 100.5 fl (85-98); Mean Platelet Volume 10.3 fL (7.4-10.4); Monocytes % 6.2 %; Neutrophils # 13.71 10^3/uL (1.8-7.7); Neutrophils % 87.3 %; Nucleated Red Blood Cells % 0 %; Platelet Count 223 10^3/cmm (157-399); Red Blood Count 4.17 10^6/uL (3.85-5.65); Red Cell Distribution Width 13.7 % (12.1-15.1); White Blood Count 15.71 10^3/uL (3.29-11.43)
--- NOTE | 2023-11-03 10:00 | ED_ITS ---
HPI - Nausea/Vomiting/Diarrhea 2 General: Chief complaint: Nausea/Vomiting/Diarrhea Stated complaint: N/V/D Time Seen by Provider: 11/03/23 09:27 Source: patient Mode of arrival: EMS History of Present Illness: 80-year-old female presents emergency ro om complaining of left-sided abdominal pain. She states it began last night after she ate canned chili. She is concerned because she has had diverticulitis in the past she feels like this presents similar to her previous diverticulitis. She had multiple episodes of vomiting and persistent abdominal pain and cramping which refers to the left mid and lower portions of her abdomen. No hematochezia melena hematemesis coffee- ground emesis denies dysuria urgency or frequency. No chest pain or shortness of breath MD elicited complaint: nausea and vomiting Onset (ago): hour(s) Description of vomiting: food contents and bilious Associated nausea: Yes Associated abdominal pain: Yes Location of pain: LUQ and LLQ Pain consistency: constant Severity: moderate Quality: cramping Exacerbating factors: eating and vomiting Relieving factors: none Associated symtoms: Reports nausea; Denies altered mental status, anxiety, bloating, change in vision, chest pain, cough, diaphoresis, decreased urine output, dizziness, dysuria, epistaxis, fatigue, fecal incontinence, fevers/chills, headache(s), anorexia, malaise, myalgias, numbness, palpitations, rash, short of breath, syncope, tenesmus, tinnitus or weakness Review of Systems 2 Const: Denies: fever(s), chills, fatigue, malaise or diaphoresis Eyes: Denies: change in vision ENMT: Denies: tinnitus or epistaxis Card: Denies: chest pain, palpitations or syncope Resp: Denies: dyspnea GI: Reports: nausea and vomiting; Denies: abdominal pain, diarrhea, bloating, fecal incontinence, hematochezia, melena or white/light colored stool : Denies: dysuria, urinary frequency or urinary urgency Musc: Denies: neck pain or back pain Skin/Breast: Denies: rash Neuro: Denies: headache(s) or dizziness Psych: Denies: anxiety PFSH ED 2 PFSH: Medical History Diverticular hemorrhage Acute kidney injury superimposed on chronic kidney disease History of sciatica Hypertension Thrombocytopenia Gastroenteritis Nausea & vomiting REAGAN (acute kidney injury) Sepsis associated hypotension Sepsis Colitis Diverticulitis Social History Substance/Drug Use: never Physical Exam 2 Const: EXAM LIMITATIONS: no altered mental status GENERAL APPEARANCE: c ooperative ORIENTATION/CONSCIOUSNESS: Yes awake, Yes oriented to person, Yes oriented to place and Yes oriented to time HENMT: COMMON NORMALS: normocephalic, atraumatic and hearing grossly normal bilaterally HEAD & SCALP: normocephalic and atraumatic Resp: COMMON NORMALS: normal respiratory effort, No retractions, No use of accessory muscles and clear to auscultation bilaterally AUSCULTATION: clear to auscultation bilaterally Cardio: COMMON NORMALS: regular rate, regular rhythm and No murmurs present (Cardio) RATE: regular rate RHYTHM: regular rhythm GI: COMMON NORMALS: No hepatosplenomegaly present AUSCULTATION: Yes normoactive bowel sounds PALPATION: Yes Tenderness to palpation present (GI) (Left mid and lower abdomen), No Guarding due to palpation present (GI) and Yes No hepatosplenomegaly present Extremity: COMMON NORMALS: normal to inspection, capillary refill normal, no clubbing, cyanosis or edema, no calf tenderness and no pedal edema Neuro: SENSORIUM/ORIENTATION: Yes oriented to person, Yes oriented to place and Yes oriented to time Skin: COMMON NORMALS: no rashes or lesions noted GENERAL SKIN EXAM: no rashes or lesions noted Course 2 Vital Signs: Vital signs: Vital Signs Temperature 98.0 F 11/03/23 19:52 Pulse Rate 78 11/03/23 19:52 Respiratory Rate 16 11/03/23 19:52 Blood Pressure 133/67 11/03/23 19:52 Pulse Oximetry 98 11/03/23 19:52 Oxygen Delivery Me thod Room Air 11/03/23 09:34 MDM - Nausea/Vomiting/Diarrhea Medical Decision Making Initial CT and labs show pancreatitis slight elevation of liver enzymes question of small stones in the gallbladder. CT also's as suggestions of mildly dilated common bile duct and they recommend further evaluation with ultrasound. Ultrasound confirms dilated gallbladder duct. MRCP done which shows no stones but there is evidence of a stricture possibly from soft tissue mass in the distal portion of the common bile duct. Patient will need ERCP unfortunately we do not have available I will have to transfer the patient. Discussed with the family ultimately they request to go to [place]. We are able to get hospitalist at [place] and the GI doctor who agreed to accept the patient on transfer. Patient was kept n.p.o. treated here with IV fluids also was given a dose of ceftriaxone she had an incidental finding of a cystitis. Cultures of urine and blood ordered. Patient was given appropriate pain and nausea medications also given fluid bolus lactic acid high normal. Medical Records I reviewed the patient's medical records. Lab Data I reviewed the patient's lab results. 11/03/23 09:53 11/03/23 09:53 Radiology Impressions Abdomen/Pelvis CT 11/03/23 09:38 IMPRESSION: 1. Peripancreatic stranding suspicious for acute pancreatitis. Correlate with serum amylase and lipase. 2. Wall thickening of the duodenum and proximal jejunum is likely reactive. Enteritis is a consideration. 3. Cholelithiasis with distended gallbladder. The common bile duct measures up to 8.9 mm. Recommend ultrasound to further assess. 4. Colonic diverticulosis without evidence of acute diverticulitis. 5. Small left pleural effusion. 6. Coronary artery disease. 7. Mild fluid in the distal esophagus. Gallbladder Ultrasound 11/03/23 11:56 IMPRESSION: 1. Probable small stones in the gallbladder. No significant gallbladder wall thickening. 2. Extrahepatic biliary ductal dilatation. Consider MRCP to assess for biliary ductal obstruction. 3. The pancreas appears somewhat heterogeneous; compatible with known history of pancreatitis. Cholangiopancreatography MRI 11/03/23 13:01 IMPRESSION: 1. Dilated common bile duct measuring up to 10 mm. Blunting of distal tip without choledocholithiasis. Stricture suspected. Underlying mass cannot be excluded. Consider ERCP evaluation. 2. Acute pancreatitis changes. No significant fluid collection. 3. Distended gallbladder with suggestion of small gallstones in dependent portion. No pericholecystic edema or wall thickening. Laboratory Results WBC 15.71 10^3/uL (3.29-11.43) H 11/03/23 09:53 RBC 4.17 10^6/uL (3.85-5.65) 11/03/23 09:53 Hgb 13.60 g/dL (11.27-16.99) 11/03/23 09:53 Hct 41.9 % (36-47) 11/03/23 09:53 MCV 100.5 fl (85-98) H 11/03/23 09:53 MCH 32.6 pg (27-33) 11/03/23 09:53 MCHC 32.5 g/dL (30-55) 11/03/23 09:53 RDW 13.7 % (12.1-15.1) 11/03/23 09:53 Plt Count 223 10^3/cmm (157-399) 11/03/23 09:53 MPV 10.3 fL (7.4-10.4) 11/03/23 09:53 Neut % (Auto) 87.3 % 11/03/23 09:53 Lymph % (Auto) 5.7 % 11/03/23 09:53 [place] % (Auto) 6.2 % 11/03/23 09:53 Eos % (Auto) 0.1 % 11/03/23 09:53 Baso % (Auto) 0.3 % 11/03/23 09:53 Neut # (Auto) 13.71 10^3/uL (1.8-7.7) H 11/03/23 09:53 Lymph # (Auto) 0.9 10^3/uL (0.8-4.8) 11/03/23 09:53 [place] # (Auto) 1.0 10^3/uL (0.2-0.9) H 11/03/23 09:53 Eos # (Auto) 0.0 10^3/uL (0.0-0.8) 11/03/23 09:53 Baso # (Auto) 0.0 10^3/uL (0.0-0.1) 11/03/23 09:53 Nucleated RBC % (auto) 0 % 11/03/23 09:53 Nucleated RBCs # 0.0 /100WBC 11/03/23 09:53 Sodium 137 mmol/L (136-145) 11/03/23 09:53 Potassium 3.5 mmol/L (3.5-5.1) 11/03/23 09:53 Chloride 99 mmol/L (98-107) 11/03/23 09:53 Carbon Dioxide 28 mmol/L (22-29) 11/03/23 09:53 Anion Gap 13.5 (5-19) 11/03/23 09:53 BUN 25 mg/dL (8-23) H 11/03/23 09:53 Creatinine 1.4 mg/dL (0.5-0.9) H 11/03/23 09:53 GFR Calculation Not Reportable 11/03/23 09:53 Glucose 113 mg/dL (65-115) 11/03/23 09:53 Calculated Osmolality 289 mOsm/kg (285-295) 11/03/23 09:53 Lactic Acid 1.9 mmol/L (0.5-2.2) 11/03/23 12:35 Calcium 9.4 mg/dL (8.5-10.5) 11/03/23 09:53 Total Bilirubin 0.8 mg/dL (0.15-1.2) 11/03/23 09:53 AST 69 U/L (0-32) H 11/03/23 09:53 ALT 38 U/L (0-33) H 11/03/23 09:53 Alkaline Phosphatase 168 U/L (35-105) H 11/03/23 09:53 Total Protein 7.5 g/dL (6.6-8.7) 11/03/23 09:53 Albumin 3.2 g/dL (3.5-5.2) L 11/03/23 09:53 Globulin 4.3 g/dL (1.3-4.6) 11/03/23 09:53 Triglycerides 59 mg/dL (0-150) 11/03/23 09:53 Lipase > 4176 U/L (13-60) H 11/03/23 09:53 Urine Color Dark yellow (Yellow) 11/03/23 11:05 Urine Appearance Cloudy (CLEAR) A 11/03/23 11:05 Urine pH 6 (5-7) 11/03/23 11:05 Ur Specific [place] 1.015 (1.005-1.030) 11/03/23 11:05 Urine Protein 2+ (Negative) H 11/03/23 11:05 Urine Glucose (UA) Norm (Normal) 11/03/23 11:05 Urine Ketones Negative (Negative) 11/03/23 11:05 Urine Blood 2+ (Negative) H 11/03/23 11:05 Urine Nitrate Negative (Negative) 11/03/23 11:05 Urine Bilirubin Neg (Negative) 11/03/23 11:05 Urine Urobilinogen Norm mg/dL (Negative) 11/03/23 11:05 Ur Leukocyte Esterase 1+ (Negative) H 11/03/23 11:05 Urine RBC 0-4 /hpf (0-2) H 11/03/23 11:05 Urine WBC >100 /hpf (0-5) H 11/03/23 11:05 Ur Squamous Epith Cells 5-10 /hpf (0-5) H 11/03/23 11:05 Amorphous Sediment Not Reportable 11/03/23 11:05 Urine Bacteria 4+ /hpf (NONE) H 11/03/23 11:05 All radiology interpretation(s) finalized by discharge Discharge Plan Discharge Patient Disposition: Xfer Short-Term Hosp Clinical Impression: Acute pancreatitis, Cystitis Condition: Stable Referrals: Mohan Tovar MD [Primary Care Provider] - Patient Instructions: Opioid Safety, Pain Management Coding Level of Care Code ED [employer] for [facility]
[2023-11-03 10:18] LABS: Alanine Aminotransferase 38 U/L (0-33); Albumin Level 3.2 g/dL (3.5-5.2); Alkaline Phosphatase 168 U/L (35-105); Anion Gap 13.5 (5-19); Aspartate Amino Transferase 69 U/L (0-32); Blood Urea Nitrogen 25 mg/dL (8-23); Calcium 9.4 mg/dL (8.5-10.5); Carbon Dioxide 28 mmol/L (22-29); Chloride 99 mmol/L (98-107); Globulin 4.3 g/dL (1.3-4.6); Glucose 113 mg/dL (65-115); Osmolality Calculated 289 mOsm/kg (285-295); Potassium 3.5 mmol/L (3.5-5.1); Sodium 137 mmol/L (136-145); Total Bilirubin 0.8 mg/dL (0.15-1.2); Total Protein 7.5 g/dL (6.6-8.7)
[2023-11-03 10:19] LABS: Creatinine Clr Calc Pharmacy 24.7003
[2023-11-03 11:13] LABS: Lipase > 4176 U/L (13-60)
[2023-11-03 11:27] LABS: Urine Appearance Cloudy (CLEAR); Urine Color Dark Yellow (Yellow)
[2023-11-03 11:28] LABS: Add Urine Culture? Yes; Add Urine Microscopic? YES; Bacteria Urine 4+ /hpf; Bilirubin Urine Neg (Negative); Blood Urine 2+ (Negative); Glucose Urine UA Norm (Normal); Ketones Urine Negative (Negative); Leukocyte Esterase Urine 1+ (Negative); Nitrate Urine Negative (Negative); Protein Urine 2+ (Negative); RBC Urine 0-4 /hpf (0-2); Specific Gravity, Urine 1.015 (1.005-1.030); Urobilinogen Urine Norm (Negative); WBC Urine >100 /hpf (0-5); pH Urine 6 (5-7)
--- NOTE | 2023-11-03 11:56 | USR_ITS ---
PROCEDURE INFORMATION: Exam: US Abdomen, Limited; Right Upper Quadrant Exam date and time: 11/03/2023 12:38 PM Age: 88 years old Clinical indication: Abnormal findings; Abnormal radiologic finding of the abdomen; Radiologic exam and body structure: CT gb; Additional info: Abd pain/abnormal gb on CT TECHNIQUE: Imaging protocol: Real time ultrasound of the abdomen with image documentation. Limited exam focused on the right upper quadrant. COMPARISON: CT abdomen pelvis wo con [id number] 11/03/2023 10:29 AM FINDINGS: No focal hepatic lesion. The visualized IVC and aorta are grossly normal in caliber. The common bile duct measures 1.2 cm. Probable small stones in the gallbladder. No significant gallbladder wall thickening. The right kidney measures 7.3 cm. No suspicious mass or hydronephrosis. A simple right renal cyst measures 1.8 x 1.4 x 2.0 cm. The pancreas appears somewhat heterogeneous; compatible with known history of pancreatitis. US/US gall bladder [id number] IMPRESSION: 1. Probable small stones in the gallbladder. No significant gallbladder wall thickening. 2. Extrahepatic biliary ductal dilatation. Consider MRCP to assess for biliary ductal obstruction. 3. The pancreas appears somewhat heterogeneous; compatible with known history of pancreatitis.
[2023-11-03] MEDS: ondansetron 2 mg/ML SDV 2 mL 4 MG IVP (12:13)
[2023-11-03] MEDS: morphine 4 mg/mL SDV 1 mL IVP (12:14)
[2023-11-03] MEDS: cefTRIAXone 1,000 MG in sodium chloride 0.9% (plus) 50 ML 100 MG IV (12:16)
[2023-11-03 12:36] LABS: Triglycerides 59 mg/dL (0-150)
[2023-11-03] MEDS: sodium chloride 0.9% 2,177.25 ML 999 ML IV (12:53)
--- NOTE | 2023-11-03 13:01 | MRR_ITS ---
PROCEDURE INFORMATION: Exam: MR Abdomen Without Contrast, Biliary System Exam date and time: 11/03/2023 2:18 PM Age: 88 years old Clinical indication: Nausea and vomiting; Additional info: Dilated cbd TECHNIQUE: Imaging protocol: MR of the abdomen without contrast. Exam focused on the biliary system and pancreatic ducts. Routine 3D-MRCP images were acquired and processed without radiologist supervision. COMPARISON: CT abdomen pelvis con [id number] 11/03/2023 10:29 AM FINDINGS: Liver: No mass. Gallbladder and bile ducts: Gallbladder is distended and is located to the left of gallbladder fossa. Small gallstones in the dependent portion suspected. No pericholecystic edema or wall thickening. Common bile duct measures 10 mm. There is loss of distal tapering of the common bile duct. No definite filling defect is identified. No choledocholithiasis identified. Pancreas: Acute edema in head and neck of the pancreas with surrounding inflammation. No significant fluid collection. Pancreatic duct is not dilated. Intraperitoneal space: Peripancreatic edema without fluid collection. Small left pleural effusion and atelectatic changes. MR/MR MRCP [id number] IMPRESSION: 1. Dilated common bile duct measuring up to 10 mm. Blunting of distal tip without choledocholithiasis. Stricture suspected. Underlying mass cannot be excluded. Consider ERCP evaluation. 2. Acute pancreatitis changes. No significant fluid collection. 3. Distended gallbladder with suggestion of small gallstones in dependent portion. No pericholecystic edema or wall thickening.
[2023-11-03 13:04] LABS: Lactic Sepsis W/Reflex 1.9 mmol/L (0.5-2.2)
[2023-11-03] MEDS: sodium chlor 0.9% + KCl 20 mEq 20 MEQ/1,000 ML BAG 125 MEQ IV (18:44)
== END 2023-11-03 19:53 | disposition short-term general hospital (02) ==
PROVIDERS: Emergency Provider Family Medicine; PCP Family Medicine
DX: K85.90 Acute pancreatitis without necrosis or infection, unspecified (principal); N30.90 Cystitis, unspecified without hematuria; I12.9 Hypertensive chronic kidney disease with stage 1 through stage 4 chronic kidney disease, or unspecified chronic kidney disease; N18.9 Chronic kidney disease, unspecified
CPT/HCPCS: 36415; 74176; 74181; 76705; 80053; 81001; 83605; 83690; 84478; 85025; 87040; 87077; 87086; 87186; 96361; 96365; 96375; 99285; J0696; J2270; J2405; J3480; J7030